=== PATIENT | male | born 1945 | race Caucasian/White ===

== ENCOUNTER 2022-09-04 09:51 | Outpatient (CLI) | payer MEDICARE, SELFPAY ==
[2022-09-04 14:22] LABS: Chloride* 101 mmol/L (96-114); Potassium* 3.9 mmol/L (3.6-5.1); Sodium* 142 mmol/L (135-149)
[2022-09-04 14:25] LABS: Blood Urea Nitrogen* 18 mg/dL (7-30); Carbon Dioxide* 34 mmol/L (20-32); Creatinine* 0.7 mg/dL (0.5-1.5); Estimated Glomerular Filt Rate 94 ml/min; Glucose* 115 mg/dL (60-115)
[2022-09-04 14:26] LABS: Calcium* 10.3 mg/dL (8.4-10.6)
== END 2022-09-04 09:52 | disposition home or self-care (01) ==
LOC: LONREF 09:53
PROVIDERS: PCP Family Medicine; Visit Provider Family Medicine
DX: I10 Essential (primary) hypertension (principal)
CPT/HCPCS: 80048

== ENCOUNTER 2023-02-04 08:28 | Outpatient (CLI) | payer MEDICARE, SELFPAY | END 2023-02-04 08:29 | disposition home or self-care (01) | LOC: AMB 02-06 10:23 | PROVIDERS: PCP Family Medicine; Visit Provider Family Medicine | DX: R50.9 Fever, unspecified (principal); R53.1 Weakness | CPT/HCPCS: A0425; A0427 ==

== ENCOUNTER 2023-02-04 08:55 | Inpatient (IN) | payer MEDICARE, SELFPAY ==
[2023-02-04] VITALS (36 sets, daily range): BP systolic 143–196; BP diastolic 89–141; PULSE 89–143; RESP 24–40; TEMP 38.4–39.8; O2SAT 90–97; BMI 40.4
[2023-02-04 10:01] LABS: PCR FLU A Negative PCR FLU A (Negative); PCR FLU B Negative PCR FLU B (Negative); PCR RSV Negative PCR RSV (Negative)
--- NOTE | 2023-02-04 10:06 | CRLHL7_ITS ---
For Patients: As a result of the Cures Act, medical imaging exams and procedure reports are released immediately into your electronic medical record. You may view this report before your referring provider. If you have questions, please contact your health care provider. INDICATION: COUGH; FEVER TECHNIQUE: Chest 2 views. COMPARISON: June 12, 2020. FINDINGS: Cardiovascular and mediastinum: Stable prominence of the cardiomediastinal silhouette. Lungs and pleural spaces: Central vascular congestion and interstitial prominence. No focal consolidation. No sign of pleural effusion. No pneumothorax. Bones and soft tissues: No significant findings. IMPRESSION: Cardiomegaly with central vascular congestion and interstitial prominence suspicious for infectious/inflammatory process or interstitial edema. Dictated by Moses De Leon MD @ 02/04/2023 11:02:48 AM (Electronically Signed)
[2023-02-04] MEDS: 0.9 % SODIUM CHLORIDE 1000 ml 1,000 ML IV ×2 (10:18→19:41)
[2023-02-04 10:22] LABS: SARS PCR* Negative SARS-CoV-2 (Negative)
[2023-02-04 11:10] LABS: Basophils Absolute Auto 0.02 K/uL (0.00-0.30); Basophils Percent Auto 0.2 % (0.0-3.0); Hematocrit 41.3 % (37.0-53.0); Immature Granulocytes Abs Auto 0.03 K/uL (0.00-0.30); Immature Granulocytes Pct Auto 0.3 %; Lactate* 1.3 mmol/L (0.5-1.9); Lymphocytes Percent Auto 9.8 % (20-44); Mean Corpuscular HGB Conc 34 gm/dL (32-36); Mean Corpuscular Hemoglobin 30 pg (26-34); Mean Corpuscular Volume 87 fL (80-100); Monocytes Percent Auto 6.1 % (0.0-11.0); Neutrophils Percent Auto 83.6 % (42.0-72.0); Platelet Count* 185 K/uL (140-440); Red Blood Count 4.73 m/uL (4.30-5.90); White Blood Count* 9.86 K/uL (4.50-11.00)
[2023-02-04 11:19] LABS: Troponin, Point-of-Care* 0.19 ng/ml (0.01-0.04)
[2023-02-04 11:19] LABS: Strep A DNA Probe* NOT DETECTED (Not Detectd)
[2023-02-04] MEDS: cefTRIAXone 1 GM in 0.9 % SODIUM CHLORIDE Mini-bag 100 ML IVPB (11:31)
[2023-02-04 11:34] LABS: Appearance Urine Clear (Clear); Bilirubin Urine 1+ (Negative); Blood Urine 3+ (Negative); Color Urine Yellow (Yellow); Glucose Urine Negative (Negative); Ketones Urine Negative (Negative); Leukocyte Esterase Urine Negative (Negative); Nitrite Urine Negative (Negative); Protein Urine 3+ (Negative); Specific Gravity Urine >= 1.030 (1.000-1.030); Urobilinogen Urine 0.2 (0.2-1.0); pH Urine 5.5 (5.0-8.5)
[2023-02-04 11:39] LABS: Chloride* 99 mmol/L (96-114); D Dimer Quantitative* 2.13 ug/ml (0.00-0.50); Potassium* 3.4 mmol/L (3.6-5.1); Slide Review Reflex No; Sodium* 136 mmol/L (135-149)
[2023-02-04 11:42] LABS: Creatinine* 0.8 mg/dL (0.5-1.5); Est. Creatinine Clearance* 54.05; Estimated Glomerular Filt Rate 90 ml/min
[2023-02-04 11:43] LABS: Blood Urea Nitrogen* 17 mg/dL (7-30); Calcium* 8.6 mg/dL (8.4-10.6); Carbon Dioxide* 31 mmol/L (20-32); Glucose* 171 mg/dL (60-115)
[2023-02-04 12:00] LABS: C Reactive Protein* 19.2 mg/dL (0.5-1.0); NT Pro B Type NatriureticPept* 1140 pg/mL
[2023-02-04 12:01] LABS: Amorphous Sediment Urine Moderate; Bacteria Urine Moderate; RBC Urine 0-2 (0-2); Squamous Epithelial Cell Urine Few (None-Few)
[2023-02-04 12:02] LABS: Mucus Urine Few
[2023-02-04 12:28] LABS: Ethanol* < 0.01 % (0.01-0.03); Troponin I* 0.15 ng/mL (0.01-0.04)
--- NOTE | 2023-02-04 12:32 | ED.NURSE ---
came out, stated that pt was having a hard time breathing. Sats 89%. O2 per NC started at 2LPM. Pt was lot in bed and color on face was reddened. Assisted pt with getting higher in the bed, HOB elveated. Noted that HR was elevated. dynamometer tester placed. EKG done. Dr Cortes updated. RT called
[2023-02-04] MEDS: IPRAT-ALBUT 0.5-2.5 MG/3 ML NEB 1 NEB IH (13:01)
[2023-02-04 13:11] LABS: ABG PCO2 40 mmHG (35-45); Base Excess ABG 4.8 mmol/L (-3.0-3.0); Carboxyhemoglobin* 1.3 % (0.0-5.0); HCO3 ABG 29 mmol/L (21-28); Oxygen Saturation ABG 94 % (92-100); PO2 ABG 60.5 mmHG (80-105); TCO2 ABG 25 mmol/l (21-30); pH ABG 7.47 (7.35-7.45)
--- NOTE | 2023-02-04 13:11 | CRLHL7_ITS ---
For Patients: As a result of the Century Cures Act, medical imaging exams and procedure reports are released immediately into your electronic medical record. You may view this report before your referring provider. If you have questions, please contact your health care provider. INDICATION: Shortness of breath, fever and elevated D-dimer. TECHNIQUE: CT chest PE was acquired with 100 cc Omnipaque 350 IV contrast. COMPARISON: Chest CT 11/25/2015 FINDINGS: Heart and vasculature: Nondiagnostic examination secondary to inadequate opacification of the pulmonary artery. No gross central pulmonary filling defects. Left-sided aortic arch which is normal in caliber with atherosclerotic calcification. Severe coronary atherosclerosis. No pericardial effusion. Lungs and pleural: Trace left pleural effusion with consolidation in the left lower lobe as well some patchy lingular consolidation. Lymph nodes/mediastinum: Subcentimeter subcarinal lymph nodes. Chest wall: No masses. Upper abdomen: Normal. Bones: Ankylosis of the thoracic spine. IMPRESSION: 1. Nondiagnostic evaluation for the detection of pulmonary embolus secondary to inadequate opacification of the pulmonary artery. No gross central pulmonary embolus seen. 2. Trace left pleural effusion with left lower lobe and lingular consolidation consistent with pneumonia. Please note that all CT scans at this facility use dose modulation, iterative reconstruction, and/or weight-based dosing when appropriate to reduce radiation dose to as low as reasonably achievable. Dictated by Franklin Nowak MD @ 02/04/2023 2:34:43 PM (Electronically Signed)
--- NOTE | 2023-02-04 13:22 | ED.NURSE ---
Dr. Cortes notified of POC trop result of 0.20.
[2023-02-04] MEDS: ERTAPENEM 1 GM in 0.9 % SODIUM CHLORIDE Mini-bag 100 ML IVPB (14:17)
--- NOTE | 2023-02-04 15:00 | ED.NURSE ---
Hospitalist MD Novoa noted concern about pt IV in R hand bleeding. Citizen Participation Specialist examined IV, flushes well. IV hub was a little loose, this was tightened and additional tegaderm applied over IV site.
[2023-02-04] MEDS: ACETAMINOPHEN 325 MG TABLET 650 MG PO ×2 (16:12→20:31)
[2023-02-04] MEDS: guaiFENesin 100 MG/ML CUP PO ×2 (16:13→20:36)
--- NOTE | 2023-02-04 16:50 | ED.SOB ---
HPI - SOB/Dyspnea General Date Seen: 02/04/23 Chief Complaint: Shortness of Breath/Dyspnea Stated Complaint: Fever and disorientation Time Seen by Provider: 02/04/23 10:05 Source: patient and RN notes reviewed Mode of arrival: ambulatory Limitations: no limitations History of Present Illness HPI Narrative: Patient is 78-year-old gentleman who presents here with shortness of breath, this been going on for the last 5 days, he has had a fever up to 103 at home, a bit of disorientation, also. Brought in by his today for further assessment. History of obstructive sleep apnea, on CPAP in the past. Remote history of COPD also. Denies any chest pain associated with this, he has had no increased leg swelling, no nausea vomiting, no diarrhea, no redness or rashes and no else sick around him, he feels more comfortable sitting up as opposed to lying down. They been trying antipyretic sent home. MD elicited complaint: shortness of breath and cough Related Data Home oxygen amount: none Home Medications Medication Instructions Recorded Confirmed CPAP Machine Not Applicable 09/04/22 aspirin 81 mg tablet,delayed 81 mg PO DAILY 09/04/22 02/04/23 release loratadine 10 mg tablet 10 mg PO DAILY 09/04/22 02/04/23 multivitamin (Multiple Vitamins 1 tab PO QAM 09/04/22 02/04/23 tablet) omega-3 fatty acids 1,000 mg 1,000 mg PO DAILY 09/04/22 02/04/23 capsule amlodipine 5 mg tablet 5 mg PO DAILY 02/04/23 02/04/23 atorvastatin 10 mg tablet 10 mg PO HS 02/04/23 02/04/23 losartan 100 mg tablet 100 mg PO DAILY 02/04/23 02/04/23 metoprolol succinate 25 mg 25 mg PO DAILY 02/04/23 02/04/23 tablet,extended release 24 hr Previous Rx's Medication Instructions Recorded fluticasone propionate 50 1 spray intranasal DAILY #16 grams 09/04/22 mcg/actuation nasal spray,suspension omeprazole 20 mg capsule,delayed 20 mg PO BID #180 caps 09/04/22 release potassium chloride 10 mEq 10 meq PO DAILY #90 caps 09/04/22 capsule,extended release triamterene 37.5 1 cap PO DAILY #90 caps 09/04/22 mg-hydrochlorothiazide 25 mg capsule Allergies Allergy/AdvReac Type Severity Reaction Status Date / Time oxycodone Allergy Mild Gastrointestinal Verified 09/03/22 08:55 Upset silver nitrate Allergy Mild Rash Verified 09/03/22 08:55 Review of Systems Status of ROS: Reports: 10 or more systems reviewed and unremarkable except as noted in History and below [facility] PFS Medical History Renal mass (05/17/13) ?N28.89 - Other specified disorders of kidney and ureter (ICD-10) Tobacco use (01/09/12) ?Z72.0 - Tobacco use (ICD-10) Surgical History History of appendectomy ?Z90.49 - Acquired absence of other specified parts of digestive tract (ICD-10) History of cholecystectomy (01/09/12) ?Z90.49 - Acquired absence of other specified parts of digestive tract (ICD-10) History of shoulder surgery (01/09/12) ?Z98.890 - Other specified postprocedural states (ICD-10) History of spinal surgery (01/09/12) ?Z98.890 - Other specified postprocedural states (ICD-10) History of tonsillectomy (01/09/12) ?Z90.89 - Acquired absence of other organs (ICD-10) History of umbilical hernia repair (01/09/12) ?Z98.890 - Other specified postprocedural states (ICD-10) ?Z87.19 - Personal history of other diseases of the digestive system (ICD-10) S/P craniotomy ?Z98.890 - Other specified postprocedural states (ICD-10) S/P eye surgery ?Z98.890 - Other specified postprocedural states (ICD-10) Status post arthroscopic knee surgery ?Z98.890 - Other specified postprocedural states (ICD-10) Status post transurethral resection of prostate (01/09/12) ?Z90.79 - Acquired absence of other genital organ(s) (ICD-10) Social History Highest level of school completed/degree received: Associate degree: occupational, technical, vocational program Smoking Status: Former smoker What tobacco products do you use: cigarettes Smoking quit date/years: >15 years ago Do you use any of these nicotine containing products: None Second hand tobacco smoke exposure: No How often do you have a drink containing alcohol: never AUDIT-C Alcohol total score: 0 Non-prescribed substance use: denies use Caffeine: No service: No Exam Narrative: Exam Narrative: Patient is seen in room 5, he appears to be in [id number] distress, with elevated respiratory rate, and a fever. GCS is 15/15, pupils equal round react to light his TMs normal oropharynx normal, there is no adenopathy anterior posterior chains, his chest shows rhonchus rales and with wheezing, bilaterally, in crackles in the left lower lobe. No signs of respiratory distress, and his heart sounds are distant faint but S1-S2 normal there is no S3-S4 clicks murmurs or gallops his abdomen is soft and obese there is no guarding, no organomegaly, was all extremities independently and well. Const: Vital Signs, click to edit/add: Vital Signs - 24 hr 02/04/23 09:14 02/04/23 09:25 02/04/23 09:30 Temperature 101.1 F H Pulse Rate 112 H 111 H Pulse Rate [Pulse Oximeter] 115 H Respiratory Rate 24 Blood Pressure Blood Pressure [Ri ght Upper Arm] 174/90 H Pulse Oximetry 91 91 91 Oxygen Delivery Me thod Room Air Fraction of Inspir ed Oxygen 02/04/23 09:32 02/04/23 10:00 02/04/23 10:01 Temperature Pulse Rate 110 H 113 H 114 H Pulse Rate [Pulse Oximeter] Respiratory Rate Blood Pressure 170/89 H 172/89 H Blood Pressure [Ri ght Upper Arm] Pulse Oximetry 94 93 91 Oxygen Delivery Me thod Fraction of Inspir ed Oxygen 02/04/23 10:37 02/04/23 11:02 02/04/23 11:03 Temperature Pulse Rate 117 H 119 H 119 H Pulse Rate [Pulse Oximeter] Respiratory Rate Blood Pressure 190/108 H Blood Pressure [Ri ght Upper Arm] Pulse Oximetry 93 95 95 Oxygen Delivery Me thod Fraction of Inspir ed Oxygen 02/04/23 11:12 02/04/23 11:30 02/04/23 11:36 Temperature 103.1 F H Pulse Rate 124 H 129 H Pulse Rate [Pulse Oximeter] Respiratory Rate 26 H Blood Pressure 196/104 H 185/97 H Blood Pressure [Ri ght Upper Arm] Pulse Oximetry 91 90 Oxygen Delivery Me thod Fraction of Inspir ed Oxygen 02/04/23 11:37 02/04/23 12:00 02/04/23 12:02 Temperature Pulse Rate 129 H 132 H 133 H Pulse Rate [Pulse Oximeter] Respiratory Rate Blood Pressure 196/116 H Blood Pressure [Ri ght Upper Arm] Pulse Oximetry 90 90 91 Oxygen Delivery Me thod Fraction of Inspir ed Oxygen 02/04/23 12:30 02/04/23 12:32 02/04/23 13:02 Temperature Pulse Rate 141 H 143 H Pulse Rate [Pulse Oximeter] Respiratory Rate Blood Pressure 194/109 H 183/96 H Blood Pressure [Ri ght Upper Arm] Pulse Oximetry 91 91 Oxygen Delivery Me thod Fraction of Inspir ed Oxygen 02/04/23 13:06 02/04/23 13:45 02/04/23 14:00 Temperature Pulse Rate 140 H 137 H 137 H Pulse Rate [Pulse Oximeter] Respiratory Rate Blood Pressure Blood Pressure [Ri ght Upper Arm] Pulse Oximetry 94 92 95 Oxygen Delivery Me thod Fraction of Inspir ed Oxygen 02/04/23 14:02 02/04/23 14:17 02/04/23 14:03 Temperature 103.2 F H Pulse Rate 134 H 133 H Pulse Rate [Pulse Oximeter] Respiratory Rate Blood Pressure 169/99 H Blood Pressure [Ri ght Upper Arm] Pulse Oximetry 94 95 Oxygen Delivery Me thod Nasal Cannula Fraction of Inspir ed Oxygen 4 02/04/23 14:30 02/04/23 14:32 02/04/23 15:00 Temperature Pulse Rate 143 H 136 H Pulse Rate [Pulse Oximeter] Respiratory Rate Blood Pressure 154/141 H Blood Pressure [Ri ght Upper Arm] Pulse Oximetry 95 95 Oxygen Delivery Me thod Fraction of Inspir ed Oxygen 02/04/23 15:02 Temperature Pulse Rate 134 H Pulse Rate [Pulse Oximeter] Respiratory Rate Blood Pressure 174/94 H Blood Pressure [Ri ght Upper Arm] Pulse Oximetry 96 Oxygen Delivery Me thod Fraction of Inspir ed Oxygen Course Reevaluation(s) Reevaluation #1: Patient has the heart shortness of breath, his initial troponin was elevated at 0.19, 2nd troponin was 0.20 given him a delta of less than 0.01, this makes me think that this is more of a chronic issue, likely significant strain associated with the heart. I did do a chest CT, did not show any large central eyes emboli, but was nondiagnostic. For small emboli. I was reassured though however the finding of a left lower lobe pneumonia, his clinically seems to be acting like this he was given her her to [place] also. I discussed with the inpatient physician, admission to our CCU, for further evaluation he did respond very well to a nebulize treatment here. Vital Signs Vital signs: Initial Vital Signs Temperature 101.1 F H 02/04/23 09:14 Temperature Source Temporal Artery Scan 02/04/23 09:14 Pulse Rate 115 H 02/04/23 09:14 Respiratory Rate 24 02/04/23 09:14 Blood Pressure 174/90 H 02/04/23 09:14 Blood Pressure Mean 118 H 02/04/23 09:14 Blood Pressure Position Semi-Fowlers 02/04/23 09:14 Pulse Oximetry 91 02/04/23 09:14 Oxygen Delivery Method Room Air 02/04/23 09:14 Vital Signs Temperature 101.1 F H 02/04/23 09:14 Pulse Rate 115 H 02/04/23 09:14 Respiratory Rate 24 02/04/23 09:14 Blood Pressure 174/90 H 02/04/23 09:14 Pulse Oximetry 91 02/04/23 09:14 Oxygen Delivery Method Room Air 02/04/23 09:14 Temperature 103.3 F H 02/04/23 16:12 Pulse Rate 123 H 02/04/23 15:36 Respiratory Rate 40 H 02/04/23 15:36 Blood Pressure 174/100 H 02/04/23 15:36 Pulse Oximetry 94 02/04/23 15:36 Oxygen Delivery Method Nasal Cannula 02/04/23 15:36 Fraction of Inspired Oxygen 4 02/04/23 15:36 MDM - SOB/Dyspnea MDM Narrative Medical decision making narrative: Life-threatening differential diagnosis includes occluded COPD exacerbation, pulmonary edema, acute coronary syndromes, pulmonary embolism, pneumonia, and pneumothorax. Other differential diagnosis considerations include asthma, bronchitis as well as other etiologies Differential Diagnosis Differential diagnosis: Likely acute exacerbation of chronic obstructive airways disease, congestive heart failure, community acquired pneumonia, asthma with exacerbation and pulmonary embolism Medical Records Attestation: I reviewed the patient's medical records. Lab Data Attestation: I reviewed the patient's lab results. Labs: Lab Results 02/04/23 02/04/23 02/04/23 Range/Units 09:15 10:25 10:58 WBC 9.86 (4.50-11.00) K/uL RBC 4.73 (4.30-5.90) m/uL Hgb 14.0 (13.5-17.5) gm/dL Hct 41.3 (37.0-53.0) % MCV 87 (80-100) fL MCH 30 (26-34) pg MCHC 34 (32-36) gm/dL RDW Coeff of Nitin 13.0 (11.5-15.5) % Plt Count 185 (140-440) K/uL Neut % (Auto) 83.6 H (42.0-72.0) % Lymph % (Auto) 9.8 L (20-44) % Hudson % (Auto) 6.1 (0.0-11.0) % Eos % (Auto) 0.0 (0.0-7.0) % Baso % (Auto) 0.2 (0.0-3.0) % Neut # (Auto) 8.20 H (1.7-7.0) K/uL Lymph # (Auto) 1.00 (0.90-2.90) K/uL Hudson # (Auto) 0.60 (0.00-0.90) K/UL Eos # (Auto) 0.00 (0.00-0.50) K/uL Baso # (Auto) 0.02 (0.00-0.30) K/uL D-Dimer Quant (PE/DVT) 2.13 H (0.00-0.50) ug/ml ABG pH (7.35-7.45) ABG pCO2 (35-45) mmHG ABG pO2 (80-105) mmHG ABG HCO3 (21-28) mmol/L ABG Total CO2 (21-30) mmol/l ABG O2 Saturation (92-100) % ABG Base Excess (-3.0-3.0) mmol/L Carboxyhemoglobin (0.0-5.0) % Sodium 136 (135-149) mmol/L Potassium 3.4 L (3.6-5.1) mmol/L Chloride 99 (96-114) mmol/L Carbon Dioxide 31 (20-32) mmol/L BUN 17 (7-30) mg/dL Creatinine 0.8 (0.5-1.5) mg/dL Estimated Creat Clear 54.05 Estimated GFR 90 ml/min Glucose 171 H (60-115) mg/dL Lactate 1.3 (0.5-1.9) mmol/L Calcium 8.6 (8.4-10.6) mg/dL Troponin I 0.15 H* (0.01-0.04) ng/mL C-Reactive Protein 19.2 H (0.5-1.0) mg/dL NT-Pro-B Natriuret Pep 1140 pg/mL Urine Color (Yellow) Urine Appearance (Clear) Urine pH (5.0-8.5) Ur Specific Te[place] (1.000-1.030) Urine Protein (Negative) Urine Glucose (UA) (Negative) Urine Ketones (Negative) Urine Blood (Negative) Urine Nitrite (Negative) Urine Bilirubin (Negative) Urine Urobilinogen (0.2-1.0) Ur Leukocyte Esterase (Negative) Urine RBC (0-2) Urine WBC (0-5) Ur Squamous Epith Cells (None-Few) Amorphous Sediment (None) Urine Bacteria (None) Urine Mucus (None) Ethyl Alcohol < 0.01 L (0.01-0.03) % SARS-CoV-2 (PCR) Negative SARS-CoV-2 (Negative) Influenza Type A (PCR) Negative PCR FLU A (Negative) Influenza Type B (PCR) Negative PCR FLU B (Negative) RSV (PCR) Negative PCR RSV (Negative) Group A Strep DNA NOT DETECTED (Not Detectd) POC Troponin I (0.01-0.04) ng/ml 02/04/23 02/04/23 02/04/23 Range/Units 10:59 11:20 12:39 WBC (4.50-11.00) K/uL RBC (4.30-5.90) m/uL Hgb (13.5-17.5) gm/dL Hct (37.0-53.0) % MCV (80-100) fL MCH (26-34) pg MCHC (32-36) gm/dL RDW Coeff of Nitin (11.5-15.5) % Plt Count (140-440) K/uL Neut % (Auto) (42.0-72.0) % Lymph % (Auto) (20-44) % Hudson % (Auto) (0.0-11.0) % Eos % (Auto) (0.0-7.0) % Baso % (Auto) (0.0-3.0) % Neut # (Auto) (1.7-7.0) K/uL Lymph # (Auto) (0.90-2.90) K/uL Hudson # (Auto) (0.00-0.90) K/UL Eos # (Auto) (0.00-0.50) K/uL Baso # (Auto) (0.00-0.30) K/uL D-Dimer Quant (PE/DVT) (0.00-0.50) ug/ml ABG pH 7.47 H (7.35-7.45) ABG pCO2 40 (35-45) mmHG ABG pO2 60.5 L (80-105) mmHG ABG HCO3 29 H (21-28) mmol/L ABG Total CO2 25 (21-30) mmol/l ABG O2 Saturation 94 (92-100) % ABG Base Excess 4.8 H (-3.0-3.0) mmol/L Carboxyhemoglobin 1.3 (0.0-5.0) % Sodium (135-149) mmol/L Potassium (3.6-5.1) mmol/L Chloride (96-114) mmol/L Carbon Dioxide (20-32) mmol/L BUN (7-30) mg/dL Creatinine (0.5-1.5) mg/dL Estimated Creat Clear Estimated GFR ml/min Glucose (60-115) mg/dL Lactate (0.5-1.9) mmol/L Calcium (8.4-10.6) mg/dL Troponin I (0.01-0.04) ng/mL C-Reactive Protein (0.5-1.0) mg/dL NT-Pro-B Natriuret Pep pg/mL Urine Color Yellow (Yellow) Urine Appearance Clear (Clear) Urine pH 5.5 (5.0-8.5) Ur Specific Te[place] >= 1.030 (1.000-1.030) Urine Protein 3+ A (Negative) Urine Glucose (UA) Negative (Negative) Urine Ketones Negative (Negative) Urine Blood 3+ A (Negative) Urine Nitrite Negative (Negative) Urine Bilirubin 1+ A (Negative) Urine Urobilinogen 0.2 (0.2-1.0) Ur Leukocyte Esterase Negative (Negative) Urine RBC 0-2 (0-2) Urine WBC 2-5 (0-5) Ur Squamous Epith Cells Few (None-Few) Amorphous Sediment Moderate A (None) Urine Bacteria Moderate A (None) Urine Mucus Few A (None) Ethyl Alcohol (0.01-0.03) % SARS-CoV-2 (PCR) (Negative) Influenza Type A (PCR) (Negative) Influenza Type B (PCR) (Negative) RSV (PCR) (Negative) Group A Strep DNA (Not Detectd) POC Troponin I 0.19 H (0.01-0.04) ng/ml 02/04/23 Range/Units 12:50 WBC (4.50-11.00) K/uL RBC (4.30-5.90) m/uL Hgb (13.5-17.5) gm/dL Hct (37.0-53.0) % MCV (80-100) fL MCH (26-34) pg MCHC (32-36) gm/dL RDW Coeff of Nitin (11.5-15.5) % Plt Count (140-440) K/uL Neut % (Auto) (42.0-72.0) % Lymph % (Auto) (20-44) % Hudson % (Auto) (0.0-11.0) % Eos % (Auto) (0.0-7.0) % Baso % (Auto) (0.0-3.0) % Neut # (Auto) (1.7-7.0) K/uL Lymph # (Auto) (0.90-2.90) K/uL Hudson # (Auto) (0.00-0.90) K/UL Eos # (Auto) (0.00-0.50) K/uL Baso # (Auto) (0.00-0.30) K/uL D-Dimer Quant (PE/DVT) (0.00-0.50) ug/ml ABG pH (7.35-7.45) ABG pCO2 (35-45) mmHG ABG pO2 (80-105) mmHG ABG HCO3 (21-28) mmol/L ABG Total CO2 (21-30) mmol/l ABG O2 Saturation (92-100) % ABG Base Excess (-3.0-3.0) mmol/L Carboxyhemoglobin (0.0-5.0) % Sodium (135-149) mmol/L Potassium (3.6-5.1) mmol/L Chloride (96-114) mmol/L Carbon Dioxide (20-32) mmol/L BUN (7-30) mg/dL Creatinine (0.5-1.5) mg/dL Estimated Creat Clear Estimated GFR ml/min Glucose (60-115) mg/dL Lactate (0.5-1.9) mmol/L Calcium (8.4-10.6) mg/dL Troponin I (0.01-0.04) ng/mL C-Reactive Protein (0.5-1.0) mg/dL NT-Pro-B Natriuret Pep pg/mL Urine Color (Yellow) Urine Appearance (Clear) Urine pH (5.0-8.5) Ur Specific [place] (1.000-1.030) Urine Protein (Negative) Urine Glucose (UA) (Negative) Urine Ketones (Negative) Urine Blood (Negative) Urine Nitrite (Negative) Urine Bilirubin (Negative) Urine Urobilinogen (0.2-1.0) Ur Leukocyte Esterase (Negative) Urine RBC (0-2) Urine WBC (0-5) Ur Squamous Epith Cells (None-Few) Amorphous Sediment (None) Urine Bacteria (None) Urine Mucus (None) Ethyl Alcohol (0.01-0.03) % SARS-CoV-2 (PCR) (Negative) Influenza Type A (PCR) (Negative) Influenza Type B (PCR) (Negative) RSV (PCR) (Negative) Group A Strep DNA (Not Detectd) POC Troponin I 0.20 H (0.01-0.04) ng/ml ABG Data ABG results: Hypoxia, with slightly elevated COPD normal pH Attestation: I personally reviewed and interpreted this ABG as follows: Imaging Data CT scan - chest: Attestation: I have reviewed the pertinent imaging results. Radiologist's impression: Patient: NICKI BANGURA Facility:[facility] Patient ID:?[id number] Site Patient ID:?[id number]. Site :?[id number] Study:?CT Chest Angio 95CC ISOVUE 370-02/04/2023 1:51:43 PM Ordering Physician:Isai Rubio Final Report: INDICATION: Shortness of breath, fever and elevated D-dimer. TECHNIQUE: CT chest PE was acquired with 100 cc Omnipaque 350 IV contrast. COMPARISON: Chest CT 11/25/2015 FINDINGS: Heart and vasculature: Nondiagnostic examination secondary to inadequate opacification of the pulmonary artery. No gross central pulmonary filling defects. Left-sided aortic arch which is normal in caliber with atherosclerotic calcification. Severe coronary atherosclerosis. No pericardial effusion. Lungs and pleural: Trace left pleural effusion with consolidation in the left lower lobe as well some patchy lingular consolidation. Lymph nodes/mediastinum: Subcentimeter subcarinal lymph nodes. Chest wall: No masses. Upper abdomen: Normal. Bones: Ankylosis of the thoracic spine. IMPRESSION: 1. Nondiagnostic evaluation for the detection of pulmonary embolus secondary to inadequate opacification of the pulmonary artery. No gross central pulmonary embolus seen. 2. Trace left pleural effusion with left lower lobe and lingular consolidation consistent with pneumonia. Please note that all CT scans at this facility use dose modulation, iterative reconstruction, and/or weight-based dosing when appropriate to reduce radiation dose to as low as reasonably achievable. Dictated by Franklin Nowak MD @ 02/04/2023 2:34:43 PM (Electronic Signature) ECG Data Attestation: I personally reviewed and interpreted this ECG as follows: ECG interpretation date: 02/04/23 Interpretation: No acute ST wave changes, tachycardia Critical Care Time Critical Care Time Critical Care Time: Yes Attestation: The patient required my highest level preparedness to intervene emergently and I personally spent this critical care time directly and personally managing the patient. This critical care time included: Obtaining a history; Examining the patient; Pulse oximetry; Ordering and reviewing of studies; Arranging urgent treatment with development of a management plan; Evaluation of patients response to treatment; Frequent reassessment discussions with other providers. This critical care time was performed to assess and manage the high probability of imminent life-threatening deterioration that could result in multiorgan failure. It was exclusive of separate billable procedures and treating other patients and teaching time. Total Critical Care Time in Minutes: 45 Discharge Plan Discharge Clinical Impression: Chronic obstructive pulmonary disease with (acute) exacerbation, Shortness of breath, Bacterial lobar pneumonia, Hypoxia Patient Disposition: Admitted As Inpatient
[2023-02-04 18:57] LABS: HCO3 VBG 31 mmol/L (21-28); Lactate* 1.5 mmol/L (0.5-1.9); PCO2 VBG 46 mmHG (40-50); PO2 VBG 39.9 mmHG (25-47); pH VBG 7.428 (7.32-7.43)
[2023-02-04 19:36] LABS: Troponin I* 0.16 ng/mL (0.01-0.04)
[2023-02-04] MEDS: AZITHROMYCIN 500 MG in 0.9 % SODIUM CHLORIDE 250 ml 250 ML 255 MG IVPB (19:59)
[2023-02-04] MEDS: POTASSIUM CHLORIDE 10 MEQ CAPSULE ER 40 MEQ PO (20:31)
[2023-02-04] MEDS: OMEPRAZOLE 20 MG CAPSULE DR PO (21:41)
[2023-02-04] MEDS: ENOXAPARIN 40 MG/0.4 ML INJ SUBCUT (21:41)
[2023-02-04] MEDS: PIPERACILLIN/TAZOBACTAM 3.375 GM in 0.9 % SODIUM CHLORIDE Mini-bag 100 ML IVPB (21:41)
[2023-02-04] MEDS: 0.9 % SODIUM CHLORIDE 250 ml IV (21:43)
--- NOTE | 2023-02-04 21:45 | P.IMHP_ITS ---
Hospitalist- H&P: HPI History of Present Illness Time Seen by Provider: 15:00 Date Seen: 02/04/23 Chief complaint: Fever and disorientation Narrative: Neville Stern is a 78 year old man who presents for further assessment of 5 days of cough, shortness of breath, fever up to 103? F, couple episodes of rigors and diaphoresis, myalgias, decreased sleep, intermittent confusion, weakness, decreased appetite. Has tried acetaminophen at home without relief of fever. Yesterday had a couple of falls related to the weakness. Once he fell backward when trying to get up from sitting. Another time he he fell forward onto his knees and skin is knees, again when trying to get up from sitting. Had a near syncopal episode yesterday, orthostatic, when attempting to take a shower. His is been trying to talk him into coming into the hospital for assessment but he has declined until today. Ordinarily does not utilize oxygen supplementation. When he arrived emergency department he was requiring oxygen supplementation. Does use his CPAP machine regularly at bedtime. Review of Systems Status of ROS: Reports: 10 or more systems reviewed and unremarkable except as noted in History and below Narrative: Up until 5 days ago he was in his usual state of health. Uses his CPAP machine to treat his obstructive sleep apnea routinely. He finds that this helps him a great deal. Some chest discomfort when coughing otherwise denies chest pain, pressure, tightness. Cough for the most part is dry nonproductive. He states that sounds loose but has not produce much sputum. Denies hemoptysis. Cough is kept him up day and night, thus he has had very little sleep over the last few days. Denies nausea or vomiting. Denies palpitations. Denies wheezing. As far as he know he has had not had any contact with others with COVID-19, influenza, or any other illness. Denies aspiration or regurgitation. Denies constipation or diarrhea. No recent travel, trauma, injury. No blood loss. No focal motor neurologic deficits. 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 PFSH PFS Medical History Adenomatous colon polyp ?D12.6 - Benign neoplasm of colon, unspecified (ICD-10) Chronic obstructive pulmonary disease with (acute) exacerbation ?J44.1 - Chronic obstructive pulmonary disease with (acute) exacerbation (ICD-10) Diverticulosis of intestine ?K57.90 - Diverticulosis of intestine, part unspecified, without perforation or abscess without bleeding (ICD-10) Erectile dysfunction ?N52.9 - Male erectile dysfunction, unspecified (ICD-10) Gastroesophageal reflux (01/09/12) ?K21.9 - Gastro-esophageal reflux disease without esophagitis (ICD-10) Gilbert's syndrome (07/21/12) ?E80.4 - Gilbert syndrome (ICD-10) Hyperlipidemia (01/09/12) ?E78.5 - Hyperlipidemia, unspecified (ICD-10) Hypertension (01/09/12) ?I10 - Essential (primary) hypertension (ICD-10) Kidney calculus (01/09/12) ?N20.0 - Calculus of kidney (ICD-10) Meningioma ?D32.9 - Benign neoplasm of meninges, unspecified (ICD-10) Migraine (01/09/12) ?G43.909 - Migraine, unspecified, not intractable, without status migrainosus (ICD-10) PANCHO on CPAP ?G47.33 - Obstructive sleep apnea (adult) (pediatric) (ICD-10) ?Z99.89 - Dependence on other enabling machines and devices (ICD-10) Prediabetes ?R73.03 - Prediabetes (ICD-10) Renal mass (05/17/13) ?N28.89 - Other specified disorders of kidney and ureter (ICD-10) Tobacco use (01/09/12) ?Z72.0 - Tobacco use (ICD-10) Surgical History History of appendectomy ?Z90.49 - Acquired absence of other specified parts of digestive tract (ICD- 10) History of cholecystectomy (01/09/12) ?Z90.49 - Acquired absence of other specified parts of digestive tract (ICD- 10) History of shoulder surgery (01/09/12) ?Z98.890 - Other specified postprocedural states (ICD-10) History of spinal surgery (01/09/12) ?Z98.890 - Other specified postprocedural states (ICD-10) History of tonsillectomy (01/09/12) ?Z90.89 - Acquired absence of other organs (ICD-10) History of umbilical hernia repair (01/09/12) ?Z98.890 - Other specified postprocedural states (ICD-10) ?Z87.19 - Personal history of other diseases of the digestive system (ICD-10) S/P craniotomy ?Z98.890 - Other specified postprocedural states (ICD-10) S/P eye surgery ?Z98.890 - Other specified postprocedural states (ICD-10) Status post arthroscopic knee surgery ?Z98.890 - Other specified postprocedural states (ICD-10) Status post transurethral resection of prostate (01/09/12) ?Z90.79 - Acquired absence of other genital organ(s) (ICD-10) Social History Highest level of school completed/degree received: Associate degree: occupational, technical, vocational program Smoking Status: Former smoker What tobacco products do you use: cigarettes Smoking quit date/years: >15 years ago Do you use any of these nicotine containing products: None Second hand tobacco smoke exposure: No How often do you have a drink containing alcohol: never AUDIT-C Alcohol total score: 0 Non-prescribed substance use: denies use Caffeine: No service: No Meds Home Medications and Allergies Home Medications Medication Instructions Recorded Confirmed Type CPAP Machine Not Applicable 09/04/22 History aspirin 81 mg tablet,delayed 81 mg PO DAILY 09/04/22 02/04/23 History release loratadine 10 mg tablet 10 mg PO DAILY 09/04/22 02/04/23 History multivitamin (Multiple Vitamins 1 tab PO QAM 09/04/22 02/04/23 History tablet) omega-3 fatty acids 1,000 mg 1,000 mg PO DAILY 09/04/22 02/04/23 History capsule amlodipine 5 mg tablet 5 mg PO DAILY 02/04/23 02/04/23 History atorvastatin 10 mg tablet 10 mg PO HS 02/04/23 02/04/23 History losartan 100 mg tablet 100 mg PO DAILY 02/04/23 02/04/23 History metoprolol succinate 25 mg 25 mg PO DAILY 02/04/23 02/04/23 History tablet,extended release 24 hr Allergies Allergy/AdvReac Type Severity Reaction Status Date / Time oxycodone Allergy Mild Gastrointestinal Verified 09/03/22 08:55 Upset silver nitrate Allergy Mild Rash Verified 09/03/22 08:55 Exam Narrative: Exam Narrative: Appears ill and even toxic. Nevertheless in no acute distress. Alert and oriented to self, place, time, situation. Appears worried and concerned. Mood and affect are congruent. Vision in his right eye is grossly normal. Hearing is grossly normal bilaterally. Tympanic membranes are normal. Midline nasal septum. Dry buccal mucosa. Neck is supple. Full neck. Midline trachea. No adenopathy. Scattered rhonchi in right and left lung cee. Coarse rales left base. No rales elsewhere. No wheezing. Chest wall excursions are full. No CVA tenderness. Heart tones with regular rhythm, normal S1-S2. Abdomen is obese with active bowel sounds, soft, nontender. Extremities without edema. Palpable pulses upper and lower extremities. Capillary refill less than 3 seconds in upper and lower extremities. No focal motor neurologic deficits. Has been intentional tremor which he tells me does not ordinarily have. Otherwise no asterixis or ataxia. Skin is warm, dry, intact. No petechiae, rashes, cyanosis, or open wounds. Const: Vital Signs, click to edit/add: Vital Signs - 24 hr 02/04/23 09:14 02/04/23 09:25 02/04/23 09:30 Temperature 101.1 F H Pulse Rate 112 H 111 H Pulse Rate [Pulse Oximeter] 115 H Respiratory Rate 24 Blood Pressure Blood Pressure [Ri ght Arm] Blood Pressure [Ri ght Upper Arm] 174/90 H Pulse Oximetry 91 91 91 Oxygen Delivery Me thod Room Air Oxygen Flow Rate Fraction of Inspir ed Oxygen 02/04/23 09:32 02/04/23 10:00 02/04/23 10:01 Temperature Pulse Rate 110 H 113 H 114 H Pulse Rate [Pulse Oximeter] Respiratory Rate Blood Pressure 170/89 H 172/89 H Blood Pressure [Ri ght Arm] Blood Pressure [Ri ght Upper Arm] Pulse Oximetry 94 93 91 Oxygen Delivery Me thod Oxygen Flow Rate Fraction of Inspir ed Oxygen 02/04/23 10:37 02/04/23 11:02 02/04/23 11:03 Temperature Pulse Rate 117 H 119 H 119 H Pulse Rate [Pulse Oximeter] Respiratory Rate Blood Pressure 190/108 H Blood Pressure [Ri ght Arm] Blood Pressure [Ri ght Upper Arm] Pulse Oximetry 93 95 95 Oxygen Delivery Me thod Oxygen Flow Rate Fraction of Inspir ed Oxygen 02/04/23 11:12 02/04/23 11:30 02/04/23 11:36 Temperature 103.1 F H Pulse Rate 124 H 129 H Pulse Rate [Pulse Oximeter] Respiratory Rate 26 H Blood Pressure 196/104 H 185/97 H Blood Pressure [Ri ght Arm] Blood Pressure [Ri ght Upper Arm] Pulse Oximetry 91 90 Oxygen Delivery Me thod Oxygen Flow Rate Fraction of Inspir ed Oxygen 02/04/23 11:37 02/04/23 12:00 02/04/23 12:02 Temperature Pulse Rate 129 H 132 H 133 H Pulse Rate [Pulse Oximeter] Respiratory Rate Blood Pressure 196/116 H Blood Pressure [Ri ght Arm] Blood Pressure [Ri ght Upper Arm] Pulse Oximetry 90 90 91 Oxygen Delivery Me thod Oxygen Flow Rate Fraction of Inspir ed Oxygen 02/04/23 12:30 02/04/23 12:32 02/04/23 13:02 Temperature Pulse Rate 141 H 143 H Pulse Rate [Pulse Oximeter] Respiratory Rate Blood Pressure 194/109 H 183/96 H Blood Pressure [Ri ght Arm] Blood Pressure [Ri ght Upper Arm] Pulse Oximetry 91 91 Oxygen Delivery Me thod Oxygen Flow Rate Fraction of Inspir ed Oxygen 02/04/23 13:06 02/04/23 13:45 02/04/23 14:00 Temperature Pulse Rate 140 H 137 H 137 H Pulse Rate [Pulse Oximeter] Respiratory Rate Blood Pressure Blood Pressure [Ri ght Arm] Blood Pressure [Ri ght Upper Arm] Pulse Oximetry 94 92 95 Oxygen Delivery Me thod Oxygen Flow Rate Fraction of Inspir ed Oxygen 02/04/23 14:02 02/04/23 14:17 02/04/23 14:03 Temperature 103.2 F H Pulse Rate 134 H 133 H Pulse Rate [Pulse Oximeter] Respiratory Rate Blood Pressure 169/99 H Blood Pressure [Ri ght Arm] Blood Pressure [Ri ght Upper Arm] Pulse Oximetry 94 95 Oxygen Delivery Me thod Nasal Cannula Oxygen Flow Rate Fraction of Inspir ed Oxygen 4 02/04/23 14:30 02/04/23 14:32 02/04/23 15:00 Temperature Pulse Rate 143 H 136 H Pulse Rate [Pulse Oximeter] Respiratory Rate Blood Pressure 154/141 H Blood Pressure [Ri ght Arm] Blood Pressure [Ri ght Upper Arm] Pulse Oximetry 95 95 Oxygen Delivery Me thod Oxygen Flow Rate Fraction of Inspir ed Oxygen 02/04/23 15:02 02/04/23 15:36 02/04/23 16:12 Temperature 103.3 F H 103.3 F H Pulse Rate 134 H Pulse Rate [Pulse Oximeter] 123 H Respiratory Rate 40 H Blood Pressure 174/94 H Blood Pressure [Ri ght Arm] 174/100 H Blood Pressure [Ri ght Upper Arm] Pulse Oximetry 96 94 Oxygen Delivery Me thod Nasal Cannula Oxygen Flow Rate Fraction of Inspir ed Oxygen 4 02/04/23 15:36 02/04/23 18:00 02/04/23 18:12 Temperature 101.3 F H Pulse Rate 129 H Pulse Rate [Pulse Oximeter] 111 H Respiratory Rate 40 H 36 H Blood Pressure Blood Pressure [Ri ght Arm] 143/96 H Blood Pressure [Ri ght Upper Arm] Pulse Oximetry 94 94 Oxygen Delivery Me thod Nasal Cannula Nasal Cannula Oxygen Flow Rate 4 4 Fraction of Inspir ed Oxygen 4 02/04/23 18:24 02/04/23 19:00 02/04/23 20:00 Temperature 103.6 F H Pulse Rate 118 H Pulse Rate [Pulse Oximeter] 127 H Respiratory Rate 36 H Blood Pressure Blood Pressure [Ri ght Arm] 186/114 H Blood Pressure [Ri ght Upper Arm] Pulse Oximetry 94 94 Oxygen Delivery Me thod Nasal Cannula Oxygen Flow Rate 4 Fraction of Inspir ed Oxygen Documenting provider has reviewed patient's vital signs: yes Hospitalist - H&P: Result Labs Labs: Short CBC 02/04/23 Range/Units 10:58 WBC 9.86 (4.50-11.00) K/uL Hgb 14.0 (13.5-17.5) gm/dL Hct 41.3 (37.0-53.0) % Plt Count 185 (140-440) K/uL BMP 02/04/23 10:58 Sodium 136 Potassium 3.4 L Chloride 99 Carbon Dioxide 31 BUN 17 Creatinine 0.8 Glucose 171 H Calcium 8.6 Cardiac Enzymes 02/04/23 02/04/23 Range/Units 10:58 18:54 Troponin I 0.15 H* 0.16 H* (0.01-0.04) ng/mL Urine 02/04/23 Range/Units 11:20 Urine Color Yellow (Yellow) Urine Appearance Clear (Clear) Urine pH 5.5 (5.0-8.5) Ur Specific [place] >= 1.030 (1.000-1.030) Urine Protein 3+ A (Negative) Urine Glucose (UA) Negative (Negative) ECG Attestation: I personally reviewed and interpreted this ECG as follows: ECG interpretation date: 02/04/23 Prior ECG tracings: not available for review Interpretation: Sinus tachycardia without ischemic changes. Imaging CT scan - chest: Attestation: I have reviewed the pertinent imaging results. Radiologist's impression: 1. Nondiagnostic evaluation for the detection of pulmonary embolus secondary to inadequate opacification of the pulmonary artery. No gross central pulmonary embolus seen. 2. Trace left pleural effusion with left lower lobe and lingular consolidation consistent with pneumonia. Assessment and Plan Assessment and plan (1) Bacterial lobar pneumonia: Problem comment: Dense left lingular consolidation Status: Acute (2) Acute on chronic respiratory failure with hypoxemia: Status: Acute (3) Chronic obstructive pulmonary disease: Status: Acute (4) PANCHO on CPAP: Status: Acute (5) Elevated troponin I level: Problem comment: I suspect he has a type 2 myocardial infarction. Status: Acute Plan 1. Reviewed impression with patient and . Recommended admission to the hospital. They are both agreeable. 2. Patient had blood cultures drawn when he arrived in the emergency department. He was given 1 g of ceftriaxone in the emergency department. Later he was given 1 g of IV ertapenem. I ordered piperacillin with tazobactam 3.375 g IV q.6 hours plus azithromycin 500 mg orally once than 250 mg orally once daily for 4 additional days. 3. Oxygen support. I suspect that his oxygen needs are going to get worse as we hydrate him. If that is the case will attempt to switch him to high-flow oxygen with humidification. Consider BiPAP if need be. 4. Aerobika use. Bedside incentive spirometry use. 5. Presently not wheezing. No indication to initiate bronchodilators at this time. 6. Should his oxygen needs worsen, will also initiate IV hydrocortisone. We currently do not have the 200 mg IV continuous infusion protocol in place. For now I will order 100 mg IV q.8 until we can have our pharmacy reviewed this and possibly mix a solution so that we can give the continuous infusion for 4-7 days rather than the intermittent administration. He will need a tapering course of oral prednisone subsequently. 7. Telemetry, serial ECG, serial troponin I. Will also check echocardiogram. 8. Consider increasing his dose of beta-erlinda. 9. His fevers are persistent will need to schedule an antipyretic such as acetaminophen and consider ibuprofen p.r.n. as well. 10. Monitor his hydration closely. I did give him some IV fluids initially. 11. Given the density of the infiltrate in his left lingula, this is an individual who will certainly warrant repeat x-ray in 4-8 weeks after resolution of the acute pneumonia in order to assess for possible underlying mass or neoplasm. 12. Continue with his supportive medications. 13. Should his condition deteriorate, will need to consider possible transfer to a tertiary medical facility. 14. Patient agreeable to above stated plans and recommendations.
[2023-02-04] MEDS: IBUPROFEN 400 MG TABLET PO (22:00)
--- NOTE | 2023-02-04 22:54 | PC.NURSE ---
Shift Note [id number]: BP's have been hypertensive and pt tachycardic, HR 120-130 and seen as high as 150 with exertion to [facility]. He denies CP or pressure, troponin has been elevated. He exhibits a persistent and forceful nonproductive cough and a fever of 103 or greater since admission to the floor despite Tylenol. Pt encouraged to cough and deep breathe while on 4-5L/O2 via NC and he has been coughing nearly constantly. Guaifenesin given PRN with little relief. Ibuprofen added to eMar per MD for fever control and pt padded with several icepacks. At HS he had increasing difficulty maintaining SpO2 greater than 86% with his CPAP and 5L/O2 bled in and coughing spells continued. He was transitioned to HFNC at 20LPM/50%FiO2 per MD. He is resting upright in the recliner and appears much more comfortable. He has been thirsty and is tolerating PO liquids well, urine production has been adequate but appears quite dark and concentrated.
[2023-02-05] VITALS (15 sets, daily range): BP systolic 113–157; BP diastolic 67–92; PULSE 93–111; RESP 24–32; TEMP 36.4–37.3; O2SAT 92–101
[2023-02-05] MEDS: ACETAMINOPHEN 325 MG TABLET 650 MG PO ×6 (00:13→21:04)
[2023-02-05] MEDS: HYDROCORTISONE SOD SUCCINATE 50 MG/ML inj 100 MG IVP ×2 (00:13→06:10)
[2023-02-05] MEDS: 0.9 % SODIUM CHLORIDE 1000 ml 1,000 ML 125 ML IV ×2 (01:00→08:43)
[2023-02-05] MEDS: PIPERACILLIN/TAZOBACTAM 3.375 GM in 0.9 % SODIUM CHLORIDE Mini-bag 100 ML IVPB ×4 (03:15→21:05)
[2023-02-05] MEDS: guaiFENesin 100 MG/ML CUP PO ×3 (03:22→21:03)
[2023-02-05] MEDS: SODIUM CHLORIDE 0.9 % (FLUSH) 10 ML SYRINGE 5 ML IVF ×3 (06:10→19:35)
--- NOTE | 2023-02-05 06:57 | PC.NURSE ---
[id number]: Patient pleasant and cooperative with cares. Slept in the chair during noc. Started shift on HFNC then transitioned to 2 LT NC at 0200. Removed O2 at 0500 and sats >90% RA. Excessively diaphoretic at 0000, washed up and changed gown and linens. HR under 100 throughout shift. Afebrile. A1/walker/GB, tolerates well. Denies pain. Denies chest pressure/pain. Intermittent productive cough.
--- NOTE | 2023-02-05 07:20 | PM.IMPN1 ---
Progress Note: A&P Assessment and plan (1) Bacterial lobar pneumonia: Problem details: - Dense left lingular consolidation on 02/04 imaging - Patient also had fever on admission; interestingly, WBC has remained normal - on Zosyn and Azithromycin (02/04) Status: Acute (2) Acute on chronic respiratory failure with hypoxemia: Problem details: - improved significantly from admission, has tapered off of supplemental oxygen on 02/05 Status: Acute (3) Chronic obstructive pulmonary disease: Problem details: - on oral Prednisone (02/05) Status: Acute (4) PANCHO on CPAP: Problem details: - continue CPAP at night Status: Acute (5) Elevated troponin I level: Problem details: - no CP; type 2 myocardial infarction vs strain from acute illness - TTE ordered for 02/05 Status: Acute (6) Diabetes type 2, controlled: Problem details: - new diagnosis 01/2023, A1C 7 - nutrition consult ordered Status: Acute Plan - per above - Lovenox for ppx - likely home with when medically stable (1-2 more days) Subjective Date Seen: 02/05/23 Interval history: Patient was able to wean off of supplemental oxygen overnight. Neville is feeling 100% better but still having coughing paroxysms and low energy. No concerns for hospitalist team today. Exam Narrative: Exam Narrative: GEN: Alert and oriented, sitting comfortably in bedside chair HEENT: No scleral icterus CV: RRR, No concerning murmurs R: Expiratory wheezing bilateral apices, rales L lung base, decreased air movement Skin: No concerning skin lesions or rashes on exposed skin Neuro: Nonfocal Psych: Appropriate Const: Vital Signs, click to edit/add: Vital Signs - 24 hr 02/04/23 09:14 02/04/23 09:25 02/04/23 09:30 Temperature 101.1 F H Pulse Rate 112 H 111 H Pulse Rate [Pulse Oximeter] 115 H Respiratory Rate 24 Blood Pressure Blood Pressure [Ri ght Arm] Blood Pressure [Ri ght Upper Arm] 174/90 H Pulse Oximetry 91 91 91 Oxygen Delivery Me thod Room Air Oxygen Flow Rate Fraction of Inspir ed Oxygen 02/04/23 09:32 02/04/23 10:00 02/04/23 10:01 Temperature Pulse Rate 110 H 113 H 114 H Pulse Rate [Pulse Oximeter] Respiratory Rate Blood Pressure 170/89 H 172/89 H Blood Pressure [Ri ght Arm] Blood Pressure [Ri ght Upper Arm] Pulse Oximetry 94 93 91 Oxygen Delivery Me thod Oxygen Flow Rate Fraction of Inspir ed Oxygen 02/04/23 10:37 02/04/23 11:02 02/04/23 11:03 Temperature Pulse Rate 117 H 119 H 119 H Pulse Rate [Pulse Oximeter] Respiratory Rate Blood Pressure 190/108 H Blood Pressure [Ri ght Arm] Blood Pressure [Ri ght Upper Arm] Pulse Oximetry 93 95 95 Oxygen Delivery Me thod Oxygen Flow Rate Fraction of Inspir ed Oxygen 02/04/23 11:12 02/04/23 11:30 02/04/23 11:36 Temperature 103.1 F H Pulse Rate 124 H 129 H Pulse Rate [Pulse Oximeter] Respiratory Rate 26 H Blood Pressure 196/104 H 185/97 H Blood Pressure [Ri ght Arm] Blood Pressure [Ri ght Upper Arm] Pulse Oximetry 91 90 Oxygen Delivery Me thod Oxygen Flow Rate Fraction of Inspir ed Oxygen 02/04/23 11:37 02/04/23 12:00 02/04/23 12:02 Temperature Pulse Rate 129 H 132 H 133 H Pulse Rate [Pulse Oximeter] Respiratory Rate Blood Pressure 196/116 H Blood Pressure [Ri ght Arm] Blood Pressure [Ri ght Upper Arm] Pulse Oximetry 90 90 91 Oxygen Delivery Me thod Oxygen Flow Rate Fraction of Inspir ed Oxygen 02/04/23 12:30 02/04/23 12:32 02/04/23 13:02 Temperature Pulse Rate 141 H 143 H Pulse Rate [Pulse Oximeter] Respiratory Rate Blood Pressure 194/109 H 183/96 H Blood Pressure [Ri ght Arm] Blood Pressure [Ri ght Upper Arm] Pulse Oximetry 91 91 Oxygen Delivery Me thod Oxygen Flow Rate Fraction of Inspir ed Oxygen 02/04/23 13:06 02/04/23 13:45 02/04/23 14:00 Temperature Pulse Rate 140 H 137 H 137 H Pulse Rate [Pulse Oximeter] Respiratory Rate Blood Pressure Blood Pressure [Ri ght Arm] Blood Pressure [Ri ght Upper Arm] Pulse Oximetry 94 92 95 Oxygen Delivery Me thod Oxygen Flow Rate Fraction of Inspir ed Oxygen 02/04/23 14:02 02/04/23 14:17 02/04/23 14:03 Temperature 103.2 F H Pulse Rate 134 H 133 H Pulse Rate [Pulse Oximeter] Respiratory Rate Blood Pressure 169/99 H Blood Pressure [Ri ght Arm] Blood Pressure [Ri ght Upper Arm] Pulse Oximetry 94 95 Oxygen Delivery Me thod Nasal Cannula Oxygen Flow Rate Fraction of Inspir ed Oxygen 4 02/04/23 14:30 02/04/23 14:32 02/04/23 15:00 Temperature Pulse Rate 143 H 136 H Pulse Rate [Pulse Oximeter] Respiratory Rate Blood Pressure 154/141 H Blood Pressure [Ri ght Arm] Blood Pressure [Ri ght Upper Arm] Pulse Oximetry 95 95 Oxygen Delivery Me thod Oxygen Flow Rate Fraction of Inspir ed Oxygen 02/04/23 15:02 02/04/23 15:36 02/04/23 16:12 Temperature 103.3 F H 103.3 F H Pulse Rate 134 H Pulse Rate [Pulse Oximeter] 123 H Respiratory Rate 40 H Blood Pressure 174/94 H Blood Pressure [Ri ght Arm] 174/100 H Blood Pressure [Ri ght Upper Arm] Pulse Oximetry 96 94 Oxygen Delivery Me thod Nasal Cannula Oxygen Flow Rate Fraction of Inspir ed Oxygen 4 02/04/23 15:36 02/04/23 18:00 02/04/23 18:12 Temperature 101.3 F H Pulse Rate 129 H Pulse Rate [Pulse Oximeter] 111 H Respiratory Rate 40 H 36 H Blood Pressure Blood Pressure [Ri ght Arm] 143/96 H Blood Pressure [Ri ght Upper Arm] Pulse Oximetry 94 94 Oxygen Delivery Me thod Nasal Cannula Nasal Cannula Oxygen Flow Rate 4 4 Fraction of Inspir ed Oxygen 4 02/04/23 18:24 02/04/23 19:00 02/04/23 20:00 Temperature 103.6 F H Pulse Rate 118 H Pulse Rate [Pulse Oximeter] 127 H Respiratory Rate 36 H Blood Pressure Blood Pressure [Ri ght Arm] 186/114 H Blood Pressure [Ri ght Upper Arm] Pulse Oximetry 94 94 Oxygen Delivery Me thod Nasal Cannula Oxygen Flow Rate 4 Fraction of Inspir ed Oxygen 02/04/23 22:18 02/05/23 00:09 02/05/23 00:11 Temperature 99.1 F Pulse Rate Pulse Rate [Pulse Oximeter] 102 H Respiratory Rate 32 H Blood Pressure Blood Pressure [Ri ght Arm] 113/91 H Blood Pressure [Ri ght Upper Arm] Pulse Oximetry 93 Oxygen Delivery Me thod High Flow Nasal Ca nnula Oxygen Flow Rate 20 Fraction of Inspir ed Oxygen 50 50 02/05/23 00:12 02/04/23 23:00 02/05/23 00:00 Temperature 99.1 F Pulse Rate Pulse Rate [Pulse Oximeter] 102 H Respiratory Rate 32 H 32 H Blood Pressure Blood Pressure [Ri ght Arm] Blood Pressure [Ri ght Upper Arm] Pulse Oximetry 93 Oxygen Delivery Me thod High Flow Nasal Ca nnula Oxygen Flow Rate 20 Fraction of Inspir ed Oxygen 02/04/23 23:00 02/05/23 01:38 02/05/23 02:00 Temperature 98.3 F 98.3 F Pulse Rate 89 Pulse Rate [Pulse Oximeter] 93 Respiratory Rate 30 H Blood Pressure Blood Pressure [Ri ght Arm] 129/67 Blood Pressure [Ri ght Upper Arm] Pulse Oximetry 97 Oxygen Delivery Me thod High Flow Nasal Ca [place]ula Oxygen Flow Rate 20 Fraction of Inspir ed Oxygen 02/04/23 23:00 02/05/23 03:47 02/05/23 04:00 Temperature 98.3 F Pulse Rate 95 Pulse Rate [Pulse Oximeter] 95 Respiratory Rate 24 Blood Pressure Blood Pressure [Ri ght Arm] Blood Pressure [Ri ght Upper Arm] Pulse Oximetry 97 95 Oxygen Delivery Me thod Nasal Cannula Oxygen Flow Rate 2.0 Fraction of Inspir ed Oxygen 02/05/23 04:09 02/05/23 06:36 Temperature 98.0 F Pulse Rate Pulse Rate [Pulse Oximeter] 94 98 Respiratory Rate 24 24 Blood Pressure Blood Pressure [Ri ght Arm] 150/92 H Blood Pressure [Ri ght Upper Arm] Pulse Oximetry 95 Oxygen Delivery Me thod Room Air Oxygen Flow Rate Fraction of Inspir ed Oxygen Labs Labs: Laboratory Results - last 24 hr 02/04/23 02/04/23 02/04/23 09:15 10:25 10:58 WBC 9.86 RBC 4.73 Hgb 14.0 Hct 41.3 MCV 87 MCH 30 MCHC 34 RDW Coeff of Nitin 13.0 Plt Count 185 Neut % (Auto) 83.6 H Lymph % (Auto) 9.8 L [place] % (Auto) 6.1 Eos % (Auto) 0.0 Baso % (Auto) 0.2 Neut # (Auto) 8.20 H Lymph # (Auto) 1.00 [place] # (Auto) 0.60 Eos # (Auto) 0.00 Baso # (Auto) 0.02 D-Dimer Quant (PE/DVT) 2.13 H ABG pH ABG pCO2 ABG pO2 ABG HCO3 ABG Total CO2 ABG O2 Saturation ABG Base Excess VBG pH VBG pCO2 VBG pO2 VBG HCO3 Carboxyhemoglobin Sodium 136 Potassium 3.4 L Chloride 99 Carbon Dioxide 31 BUN 17 Creatinine 0.8 Estimated Creat Clear 54.05 Estimated GFR 90 Glucose 171 H Lactate 1.3 Calcium 8.6 Troponin I 0.15 H* C-Reactive Protein 19.2 H NT-Pro-B Natriuret Pep 1140 Urine Color Urine Appearance Urine pH Ur Specific [place] Urine Protein Urine Glucose (UA) Urine Ketones Urine Blood Urine Nitrite Urine Bilirubin Urine Urobilinogen Ur Leukocyte Esterase Urine RBC Urine WBC Ur Squamous Epith Cells Amorphous Sediment Urine Bacteria Urine Mucus Ethyl Alcohol < 0.01 L SARS-CoV-2 (PCR) Negative SARS-CoV-2 Influenza Type A (PCR) Negative PCR FLU A Influenza Type B (PCR) Negative PCR FLU B RSV (PCR) Negative PCR RSV Group A Strep DNA NOT DETECTED POC Troponin I 02/04/23 02/04/23 02/04/23 10:59 11:20 12:39 WBC RBC Hgb Hct MCV MCH MCHC RDW Coeff of Nitin Plt Count Neut % (Auto) Lymph % (Auto) [place] % (Auto) Eos % (Auto) Baso % (Auto) Neut # (Auto) Lymph # (Auto) [place] # (Auto) Eos # (Auto) Baso # (Auto) D-Dimer Quant (PE/DVT) ABG pH 7.47 H ABG pCO2 40 ABG pO2 60.5 L ABG HCO3 29 H ABG Total CO2 25 ABG O2 Saturation 94 ABG Base Excess 4.8 H VBG pH VBG pCO2 VBG pO2 VBG HCO3 Carboxyhemoglobin 1.3 Sodium Potassium Chloride Carbon Dioxide BUN Creatinine Estimated Creat Clear Estimated GFR Glucose Lactate Calcium Troponin I C-Reactive Protein NT-Pro-B Natriuret Pep Urine Color Yellow Urine Appearance Clear Urine pH 5.5 Ur Specific [place] >= 1.030 Urine Protein 3+ A Urine Glucose (UA) Negative Urine Ketones Negative Urine Blood 3+ A Urine Nitrite Negative Urine Bilirubin 1+ A Urine Urobilinogen 0.2 Ur Leukocyte Esterase Negative Urine RBC 0-2 Urine WBC 2-5 Ur Squamous Epith Cells Few Amorphous Sediment Moderate A Urine Bacteria Moderate A Urine Mucus Few A Ethyl Alcohol SARS-CoV-2 (PCR) Influenza Type A (PCR) Influenza Type B (PCR) RSV (PCR) Group A Strep DNA POC Troponin I 0.19 H 02/04/23 02/04/23 12:50 18:54 WBC RBC Hgb Hct MCV MCH MCHC RDW Coeff of Nitin Plt Count Neut % (Auto) Lymph % (Auto) [place] % (Auto) Eos % (Auto) Baso % (Auto) Neut # (Auto) Lymph # (Auto) [place] # (Auto) Eos # (Auto) Baso # (Auto) D-Dimer Quant (PE/DVT) ABG pH ABG pCO2 ABG pO2 ABG HCO3 ABG Total CO2 ABG O2 Saturation ABG Base Excess VBG pH 7.428 VBG pCO2 46 VBG pO2 39.9 VBG HCO3 31 H Carboxyhemoglobin Sodium Potassium Chloride Carbon Dioxide BUN Creatinine Estimated Creat Clear Estimated GFR Glucose Lactate 1.5 Calcium Troponin I 0.16 H* C-Reactive Protein NT-Pro-B Natriuret Pep Urine Color Urine Appearance Urine pH Ur Specific [place] Urine Protein Urine Glucose (UA) Urine Ketones Urine Blood Urine Nitrite Urine Bilirubin Urine Urobilinogen Ur Leukocyte Esterase Urine RBC Urine WBC Ur Squamous Epith Cells Amorphous Sediment Urine Bacteria Urine Mucus Ethyl Alcohol SARS-CoV-2 (PCR) Influenza Type A (PCR) Influenza Type B (PCR) RSV (PCR) Group A Strep DNA POC Troponin I 0.20 H
[2023-02-05 07:22] LABS: HCO3 VBG 30 mmol/L (21-28); Lactate* 1.1 mmol/L (0.5-1.9); PCO2 VBG 53 mmHG (40-50); PO2 VBG 29.3 mmHG (25-47); pH VBG 7.366 (7.32-7.43)
[2023-02-05 07:39] LABS: Hematocrit 41.3 % (37.0-53.0); Mean Corpuscular HGB Conc 34 gm/dL (32-36); Mean Corpuscular Hemoglobin 30 pg (26-34); Mean Corpuscular Volume 88 fL (80-100); Platelet Count* 185 K/uL (140-440); Red Blood Count 4.68 m/uL (4.30-5.90); White Blood Count* 8.45 K/uL (4.50-11.00)
[2023-02-05 07:41] LABS: Slide Review Reflex No
[2023-02-05 07:50] LABS: Chloride* 102 mmol/L (96-114); Potassium* 3.8 mmol/L (3.6-5.1); Sodium* 137 mmol/L (135-149)
[2023-02-05 07:52] LABS: Creatinine* 0.8 mg/dL (0.5-1.5); Est. Creatinine Clearance* 54.05; Estimated Glomerular Filt Rate 90 ml/min
[2023-02-05 07:53] LABS: Blood Urea Nitrogen* 18 mg/dL (7-30); Carbon Dioxide* 32 mmol/L (20-32)
[2023-02-05 07:54] LABS: Calcium* 8.3 mg/dL (8.4-10.6); Glucose* 220 mg/dL (60-115); Magnesium* 1.9 mg/dL (1.5-2.6); Phosphorus* 2.4 mg/dL (2.5-4.5)
[2023-02-05 07:56] LABS: Hemoglobin A1C* 7.06 % (0-5.6)
[2023-02-05 08:03] LABS: NT Pro B Type NatriureticPept* 1150 pg/mL
[2023-02-05 08:10] LABS: C Reactive Protein* 21.5 mg/dL (0.5-1.0); Procalcitonin* 0.91 ng/mL (<0.50); Troponin I* 0.08 ng/mL (0.01-0.04)
[2023-02-05] MEDS: METOPROLOL SUCCINATE (XL) 25 MG TAB PO (08:44)
[2023-02-05] MEDS: LOSARTAN POTASSIUM 50 MG TABLET 100 MG PO (08:45)
[2023-02-05] MEDS: AMLODIPINE 5 MG TABLET PO (08:45)
[2023-02-05] MEDS: TRIAMTERENE-HCTZ 37.5-25 MG TB 1 TAB PO (08:45)
[2023-02-05] MEDS: OMEPRAZOLE 20 MG CAPSULE DR PO (08:45)
[2023-02-05] MEDS: POTASSIUM CHLORIDE 10 MEQ CAPSULE ER PO (08:45)
[2023-02-05] MEDS: predniSONE 20 MG TABLET 40 MG PO (09:31)
[2023-02-05] MEDS: IPRAT-ALBUT 0.5-2.5 MG/3 ML NEB 1 NEB IH (09:46)
[2023-02-05] MEDS: AZITHROMYCIN 250 MG TABLET PO (17:17)
[2023-02-05] MEDS: LACTOBACILLUS ACIDOPHILUS 1 TABLET 1 TAB PO (17:18)
[2023-02-05] MEDS: LORATADINE 10 MG TABLET PO (21:04)
[2023-02-05] MEDS: 0.9 % SODIUM CHLORIDE 250 ml IV (21:05)
[2023-02-05] MEDS: FLUTICASONE PROPIONATE NASAL 1 SPRAY NOSTRIL-B (21:05)
[2023-02-05] MEDS: ENOXAPARIN 40 MG/0.4 ML INJ SUBCUT (21:05)
--- NOTE | 2023-02-05 23:03 | PC.NURSE ---
pt verbalized restlessness. Ambulated with SBA approximately 200 ft. Tolerated RA and pt denied SOB. Requested popsicle for a snack.
--- NOTE | 2023-02-05 23:39 | PC.NURSE ---
Pt pleasant and cooperative. He denies pain, is on RA, SBA to BR with walker. Hard intermittent cough. Uses home CPAP, denies use of O2 @[facility], states I don't use it at home and it threw my sleep and data/stats off. Robitussin given at [facility] for cough, pt woke shortly after waking stating he was having flashback dreams. You didn't given me that melatonin did you? Walked in glass and returned to chair after small snack. Pt denies TV or music but rather wants quiet. Pt is hoping he can return home .
[2023-02-06 00:10] VITALS: BP 152/88; PULSE 99; RESP 24; TEMP 37.3; O2SAT 92
[2023-02-06] MEDS: ACETAMINOPHEN 325 MG TABLET 650 MG PO (00:26)
[2023-02-06 02:30] VITALS: BP 160/86; PULSE 95; RESP 26; TEMP 37.2; O2SAT 90
[2023-02-06] MEDS: PIPERACILLIN/TAZOBACTAM 3.375 GM in 0.9 % SODIUM CHLORIDE Mini-bag 100 ML IVPB ×2 (02:42→09:02)
[2023-02-06] MEDS: 0.9 % SODIUM CHLORIDE 250 ml IV (02:43)
[2023-02-06] MEDS: guaiFENesin 100 MG/ML CUP PO ×2 (03:49→04:55)
[2023-02-06 07:18] LABS: Basophils Absolute Auto 0.02 K/uL (0.00-0.30); Basophils Percent Auto 0.2 % (0.0-3.0); Hematocrit 41.4 % (37.0-53.0); Immature Granulocytes Abs Auto 0.18 K/uL (0.00-0.30); Immature Granulocytes Pct Auto 1.8 %; Mean Corpuscular HGB Conc 34 gm/dL (32-36); Mean Corpuscular Hemoglobin 29 pg (26-34); Mean Corpuscular Volume 87 fL (80-100); Platelet Count* 258 K/uL (140-440); RDW Coefficient of Variation % 13.3 % (11.5-15.5); Red Blood Count 4.78 m/uL (4.30-5.90); White Blood Count* 10.04 K/uL (4.50-11.00)
--- NOTE | 2023-02-06 07:26 | PC.NURSE ---
Pt alert and oriented x 3. Afebrile. Pt denies pain, chest pain, SOB, and N/V. Pt anterior and posterior lung sounds have expiratory wheezes and are?diminished. Pt is voiding, tolerating a regular diet, up SBA. Pt slept very little throughout?night due to cough fits, PRN medications given with little relief.
[2023-02-06 07:29] LABS: Chloride* 101 mmol/L (96-114); Potassium* 3.4 mmol/L (3.6-5.1); Sodium* 139 mmol/L (135-149)
[2023-02-06 07:32] LABS: Creatinine* 0.8 mg/dL (0.5-1.5); Est. Creatinine Clearance* 54.05; Estimated Glomerular Filt Rate 90 ml/min; Slide Review Reflex No
[2023-02-06 07:33] LABS: Blood Urea Nitrogen* 16 mg/dL (7-30); Carbon Dioxide* 35 mmol/L (20-32); Glucose* 159 mg/dL (60-115)
[2023-02-06 07:49] LABS: Procalcitonin* 0.67 ng/mL (<0.50)
[2023-02-06 07:51] VITALS: BP 164/81; PULSE 102; RESP 20; TEMP 37.4; O2SAT 91
[2023-02-06 07:51] LABS: C Reactive Protein* 15.3 mg/dL (0.5-1.0)
[2023-02-06] MEDS: AMLODIPINE 5 MG TABLET PO (09:02)
[2023-02-06] MEDS: predniSONE 20 MG TABLET 40 MG PO (09:02)
[2023-02-06] MEDS: POTASSIUM CHLORIDE 10 MEQ CAPSULE ER PO (09:03)
[2023-02-06] MEDS: METOPROLOL SUCCINATE (XL) 25 MG TAB PO (09:03)
[2023-02-06] MEDS: OMEPRAZOLE 20 MG CAPSULE DR PO (09:03)
[2023-02-06] MEDS: ASPIRIN 81 MG TABLET EC PO (09:04)
[2023-02-06] MEDS: BENZONATATE 100 MG CAPSULE PO (09:04)
[2023-02-06] MEDS: TRIAMTERENE-HCTZ 37.5-25 MG TB 1 TAB PO (09:04)
[2023-02-06] MEDS: LOSARTAN POTASSIUM 50 MG TABLET 100 MG PO (09:04)
[2023-02-06] MEDS: LACTOBACILLUS ACIDOPHILUS 1 TABLET 1 TAB PO (09:04)
[2023-02-06] MEDS: SODIUM CHLORIDE 0.9 % (FLUSH) 10 ML SYRINGE 5 ML IVF (09:05)
[2023-02-06] MEDS: IPRAT-ALBUT 0.5-2.5 MG/3 ML NEB 1 NEB IH (09:05)
[2023-02-06] MEDS: CODEINE/GUAIFENESIN 20-200MG/10 ML SOLN 5 ML PO (09:06)
--- NOTE | 2023-02-06 09:35 | RESP.RT ---
Patient has a strong persistent cough. He is clearing large amount of mucus after coughing. Aerobika has been effective, but he feels like it causes to much coughing. I recommended that he continue to use the Aerobika more often, but in shorter bursts. He is willing to continue nebs and Aerobika.
[2023-02-06 10:21] VITALS: BMI 43.2
[2023-02-06 12:10] VITALS: BP 163/79; PULSE 98; RESP 18; TEMP 37; O2SAT 93
[2023-02-06 13:22] VITALS: BP 174/94; PULSE 95; RESP 18; TEMP 37
--- NOTE | 2023-02-06 13:54 | PM.DS1 ---
DS: Providers Provider Date Seen: 02/06/23 Date of admission: 02/04/23 18:13 Primary care physician: Osman Byrne MD Admitting Clinician: Carlie Abraham MD Consults: PT, RT, Nutrition Attending Physician on discharge: Carlie Abraham MD Date of Discharge: 02/06/23 DS: Diagnosis Discharge Diagnosis (1) Bacterial lobar pneumonia: Status: Acute Problem details: - Dense left lingular consolidation on 02/04 imaging - Patient also had fever on admission; interestingly, WBC remained normal during stay - on Zosyn and Azithromycin (02/04) (2) Acute on chronic respiratory failure with hypoxemia: Status: Acute Problem details: - improved significantly from admission, tapered off of supplemental oxygen on 02/05 (3) Chronic obstructive pulmonary disease: Status: Acute Problem details: - treated with oral Prednisone, will discharge to complete full 5 day burst (4) PANCHO on CPAP: Status: Acute (5) Elevated troponin I level: Status: Acute Problem details: - no CP; type 2 myocardial infarction vs strain from acute illness - TTE obtained 02/05 Final Impressions: 1. Technically limited exam. 2. LVEF estimate 55-60%. Normal LV size. Mild concentric LVH. 3. Normal RV size and global function. 4. No significant valvular abnormalities. 5. PASP 40 mmHg, mean RAP 3 mmHg included. 6. Mildly dilated aortic root [4.0 cm] and ascending aorta [3.7 cm]. 7. Echo contrast was administered to enhance visualization of all left ventricular segments. (6) Diabetes type 2, controlled: Status: Acute Problem details: - history of this, current A1C 7 - intolerant of Metformin in the past; given current A1C <8, no medications started, routine outpatient f/u with PCP DS: Summary Hospital Course Hospital Course: Neville is a pleasant 78-year-old male who was admitted to the hospital for acute hypoxic respiratory failure in the setting of left lung infiltrate. He improved significantly on hospital day 1 after treatment with IV Zosyn and steroids, and was no longer requiring supplemental oxygen. Blood cultures remained negative throughout stay. His coughing paroxysms were controlled with prn Tessalon Perles and cough syrup, and he is requesting discharge home with on hospital day 2. Comorbidities remained stable, A1C 7. Requests for PCP upon follow-up: Patient will need a repeat chest x-ray in 4-6 weeks to ensure resolution of left sided infiltrate. 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 Intermittent wheezing bilateral apices, clear with cough. Rhonchi bilaterally, L>R Ext: wwp, 2+ edema BLE Skin: No concerning skin lesions or rashes on exposed skin Neuro: No focal deficits, no resting tremor Psych: Appropriate Const: Vital Signs, click to edit/add: Vital Signs - 24 hr 02/05/23 15:15 02/05/23 15:15 02/05/23 15:15 Temperature Pulse Rate 95 Pulse Rate [Pulse Oximeter] Respiratory Rate 32 H Blood Pressure Blood Pressure [Ri ght Arm] Pulse Oximetry 101 H 94 Oxygen Delivery Me thod Room Air 02/05/23 15:15 02/05/23 15:15 02/05/23 19:00 Temperature 98.0 F 97.9 F Pulse Rate Pulse Rate [Pulse Oximeter] 101 H 101 H 108 H Respiratory Rate 32 H 32 H 28 H Blood Pressure Blood Pressure [Ri ght Arm] 140/71 H 134/81 Pulse Oximetry 94 94 Oxygen Delivery Me thod Room Air Room Air 02/06/23 00:10 02/06/23 00:10 02/06/23 00:10 Temperature Pulse Rate Pulse Rate [Pulse Oximeter] 99 Respiratory Rate 24 Blood Pressure Blood Pressure [Ri ght Arm] Pulse Oximetry 92 92 Oxygen Delivery Me thod Room Air 02/06/23 00:10 02/06/23 02:30 02/06/23 07:51 Temperature 99.1 F 99.0 F Pulse Rate Pulse Rate [Pulse Oximeter] 99 95 Respiratory Rate 24 26 H Blood Pressure Blood Pressure [Ri ght Arm] 152/88 H 160/86 H Pulse Oximetry 92 90 91 Oxygen Delivery Me thod Room Air Room Air 02/06/23 07:51 02/06/23 07:51 02/06/23 12:10 Temperature 99.4 F 98.6 F Pulse Rate Pulse Rate [Pulse Oximeter] 102 H 98 Respiratory Rate 20 18 Blood Pressure Blood Pressure [Ri ght Arm] 164/81 H 163/79 H Pulse Oximetry 91 91 93 Oxygen Delivery Me thod Room Air Room Air Room Air 02/06/23 13:22 Temperature 98.6 F Pulse Rate 95 Pulse Rate [Pulse Oximeter] Respiratory Rate 18 Blood Pressure 174/94 H Blood Pressure [Ri ght Arm] Pulse Oximetry Oxygen Delivery Me thod DS: Data Data Completed and Pending Labs on day of discharge: Labs from last 24 hours 02/06/23 06:45 WBC 10.04 RBC 4.78 Hgb 14.0 Hct 41.4 MCV 87 MCH 29 MCHC 34 RDW Coeff of Nitin 13.3 Plt Count 258 Neut % (Auto) 81.0 H Lymph % (Auto) 9.0 L [place] % (Auto) 8.0 Eos % (Auto) 0.0 Baso % (Auto) 0.2 Neut # (Auto) 8.10 H Lymph # (Auto) 0.90 [place] # (Auto) 0.80 Eos # (Auto) 0.00 Baso # (Auto) 0.02 Sodium 139 Potassium 3.4 L Chloride 101 Carbon Dioxide 35 H BUN 16 Creatinine 0.8 Estimated Creat Clear 54.05 Estimated GFR 90 Glucose 159 H Calcium 9.0 C-Reactive Protein 15.3 H Procalcitonin 0.67 H Preliminary micro results at discharge 02/04/23 11:10 Blood Culture - Preliminary Blood NO GROWTH AFTER 48 HOURS 02/04/23 10:58 Blood Culture - Preliminary Blood NO GROWTH AFTER 48 HOURS Discharge Plan Discharge Disposition: Home, Self-Care Date of Admission: 02/04/23 18:13 Attending Provider on Discharge: Carlie Abraham Primary Care Provider: Osman Byrne Condition: Improved Anticipated Discharge Date/Time: 02/06/23 14:00 Discharge Medications: New azithromycin 250 mg Tablet 250 mg PO Q24H Qty: 3 0RF Taper: Z-GENIA 250 mg Q24H for 3 Days and 0 Hour amoxicillin-pot clavulanate 875-125 mg tablet 1 tab PO Q12H 7 Days Qty: 14 0RF prednisone 20 mg tablet 20 mg PO DAILY Qty: 2 0RF codeine-guaifenesin 10-100 mg/5 mL liquid 5 ml PO Q6H PRNQty: 120 0RF benzonatate 100 mg capsule 100 mg PO BID-TID PRN (Reason: cough) Qty: 20 0RF Continued CPAP Machine Not Applicable loratadine 10 mg tablet 10 mg PO DAILY aspirin 81 mg tablet,delayed release (DR/EC) 81 mg PO DAILY omega-3 fatty acids 1,000 mg capsule 1,000 mg PO DAILY multivitamin [Multiple Vitamins] Tablet 1 tab PO QAM fluticasone propionate 50 mcg/actuation spray,suspension 1 spray intranasal DAILY Qty: 16 11RF omeprazole 20 mg capsule,delayed release(DR/EC) 20 mg PO BID Qty: 180 3RF potassium chloride 10 mEq capsule, extended release 10 meq PO DAILY Qty: 90 3RF triamterene-hydrochlorothiazid 37.5-25 mg capsule 1 cap PO DAILY Qty: 90 3RF atorvastatin 10 mg tablet 10 mg PO HS metoprolol succinate 25 mg tablet extended release 24 hr 25 mg PO DAILY losartan 100 mg tablet 100 mg PO DAILY amlodipine 5 mg tablet 5 mg PO DAILY Rx Instructions: TAKE ONE TABLET BY MOUTH ONE TIME DAILY Discharge Orders: Discharge Order (Routine); Ordered 02/06/23 Ordered By: Carlie Abraham Consulting provider completed their portion of the discharge: No Patient Education: Benzonatate (By mouth), Prednisone (By mouth), Amoxicillin/Clavulanate Potassium (By mouth), Azithromycin (By mouth), Narcotic-Antitussive/Decongestant/Expectorant (By mouth), Bacterial Pneumonia (DC) Additional Instructions: At the pharmacy: - 2 antibiotics (take as directed for your pneumonia) - Prednisone (steroid) - take for 2 more days (best to take in the morning with food) - Tessalon Perles and Codeine cough syrup as needed for coughing spasms See Dr. Byrne next week for a recheck, you will also need a repeat chest XR in 4 weeks. Activity Level: No strenuous activity and Light activity Discharge Diet: Diabetic Follow Up Appointments: Osman Byrne MD [Primary Care Provider] - 02/11/23 9:45 am ([facility] with Dr. Bolden for f/u appt.) Forms: [employer] Info Instructions
== END 2023-02-06 14:00 | disposition home or self-care (01) | DRG 190 ==
LOC: ED 10:56 → MEDSURG 15:24
PROVIDERS: Family Medicine; Admitting Provider Internal Medicine; Emergency Provider Family Medicine; PCP Family Medicine; Visit Provider Internal Medicine
DX: J44.0 Chronic obstructive pulmonary disease with (acute) lower respiratory infection (principal); J15.9 Unspecified bacterial pneumonia; J96.21 Acute and chronic respiratory failure with hypoxia; J44.1 Chronic obstructive pulmonary disease with (acute) exacerbation; G47.33 Obstructive sleep apnea (adult) (pediatric); E11.9 Type 2 diabetes mellitus without complications; R77.8 Other specified abnormalities of plasma proteins; Z99.89 Dependence on other enabling machines and devices; Z87.891 Personal history of nicotine dependence; I10 Essential (primary) hypertension; K21.9 Gastro-esophageal reflux disease without esophagitis; E80.4 Gilbert syndrome
CPT/HCPCS: 36415; 36600; 71046; 71260; 80048; 81001; 82077; 82803; 83036; 83605; 83735; 83880; 84100; 84145; 84484; 85025; 85027; 85379; 86140; 87040; 87086; 87631; 87651; 93005; 93306; 94640; 94664; 94761; 97116; 97162; 99285; 99291; A9270; J0456; J0696; J1335; J1650; J1720; J2543; J7030; J7050; J7512; Q9967

== ENCOUNTER 2023-06-26 20:53 | Emergency (ER) | payer MEDICARE, SELFPAY ==
[2023-06-26 21:12] VITALS: BP 192/102; PULSE 106; RESP 16; TEMP 36.7; O2SAT 98; BMI 38.4
--- NOTE | 2023-06-26 21:16 | ED.GENADULT ---
HPI - General Adult General Time Seen by Provider: 21:16 Date Seen: 06/26/23 Chief complaint: Hip Injury/Pain Stated complaint: hip pain Time Seen by Provider: 06/26/23 21:16 Source: patient and RN notes reviewed Mode of arrival: ambulatory Limitations: no limitations History of Present Illness HPI narrative: Patient is a very pleasant 78-year-old gentleman with history of type 2 diabetes, hypertension, hip replacement on the right x2 who comes to the emergency room with right hip pain. Patient notes a right hip replacement in 2016 that was partial. Unfortunately he developed a complication and had a repeat replacement full in 2017. He has had no problems since that time until 4 days ago when he noted right lateral hip and right groin pain. He states that this pain is similar to what he experienced in 2016 prior to needing the replacement. He notes occasional discomfort radiating into his leg. His leg is not weak and he has not lost any bowel or bladder control. He denies low back pain although he has had a history of surgeries. 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 He states he cannot remember any falls or unusual movements that may have caused this. He has not had any fever or chills. He notes he has taken Tylenol. He cannot take ibuprofen because it causes him nausea. Walking and any movement increases his discomfort. Resting improves this pain. Related Data Home Medications Medication Instructions Recorded Confirmed CPAP Machine Not Applicable 09/04/22 02/11/23 aspirin 81 mg tablet,delayed 81 mg PO DAILY 09/04/22 02/11/23 release loratadine 10 mg tablet 10 mg PO DAILY 09/04/22 02/11/23 multivitamin (Multiple Vitamins 1 tab PO QAM 09/04/22 02/11/23 tablet) omega-3 fatty acids 1,000 mg 1,000 mg PO DAILY 09/04/22 02/11/23 capsule amlodipine 5 mg tablet 5 mg PO DAILY 02/04/23 02/11/23 atorvastatin 10 mg tablet 10 mg PO HS 02/04/23 02/11/23 losartan 100 mg tablet 100 mg PO DAILY 02/04/23 02/11/23 metoprolol succinate 25 mg 25 mg PO DAILY 02/04/23 02/11/23 tablet,extended release 24 hr Previous Rx's Medication Instructions Recorded fluticasone propionate 50 1 spray intranasal DAILY #16 grams 09/04/22 mcg/actuation nasal spray,suspension omeprazole 20 mg capsule,delayed 20 mg PO BID #180 caps 09/04/22 release potassium chloride 10 mEq 10 meq PO DAILY #90 caps 09/04/22 capsule,extended release triamterene 37.5 1 cap PO DAILY #90 caps 09/04/22 mg-hydrochlorothiazide 25 mg capsule amoxicillin 875 mg-potassium 1 tab PO Q12H 7 days #14 tabs 02/06/23 clavulanate 125 mg tablet benzonatate 100 mg capsule 100 mg PO BID-TID PRN cough #20 02/06/23 caps codeine 10 mg-guaifenesin 100 mg/5 5 ml PO Q6H PRN #120 mL 02/06/23 mL oral liquid prednisone 20 mg tablet 20 mg PO DAILY #2 tabs 02/06/23 Allergies Allergy/AdvReac Type Severity Reaction Status Date / Time oxycodone Allergy Mild Gastrointestinal Verified 02/11/23 09:48 Upset silver nitrate Allergy Mild Rash Verified 02/11/23 09:48 Review of Systems Status of ROS: Reports: 6 or more systems reviewed and unremarkable except as noted in History and below Const: Denies: fever, chills, change in weight or fatigue Eyes: Denies: change in vision Cardio: Denies: chest pain or shortness of breath with exertion Resp: Denies: shortness of breath GI: Denies: abdominal pain, nausea or vomiting : Denies: painful urination Musculo: Reports: extremity pain and joint pain (Right hip); Denies: back pain Integ/Breast: Denies: rash Neuro: Denies: headache, numbness in extremities or weakness in extremities Endo: Denies: fatigue [facility] Medical History Tobacco use (01/09/12) ?Z72.0 - Tobacco use (ICD-10) Renal mass (05/17/13) ?N28.89 - Other specified disorders of kidney and ureter (ICD-10) Meningioma ?D32.9 - Benign neoplasm of meninges, unspecified (ICD-10) Kidney calculus (01/09/12) ?N20.0 - Calculus of kidney (ICD-10) Surgical History S/P eye surgery ?Z98.890 - Other specified postprocedural states (ICD-10) Status post arthroscopic knee surgery ?Z98.890 - Other specified postprocedural states (ICD-10) S/P craniotomy ?Z98.890 - Other specified postprocedural states (ICD-10) Status post transurethral resection of prostate (01/09/12) ?Z90.79 - Acquired absence of other genital organ(s) (ICD-10) History of umbilical hernia repair (01/09/12) ?Z98.890 - Other specified postprocedural states (ICD-10) ?Z87.19 - Personal history of other diseases of the digestive system (ICD-10) History of tonsillectomy (01/09/12) ?Z90.89 - Acquired absence of other organs (ICD-10) History of spinal surgery (01/09/12) ?Z98.890 - Other specified postprocedural states (ICD-10) History of shoulder surgery (01/09/12) ?Z98.890 - Other specified postprocedural states (ICD-10) History of cholecystectomy (01/09/12) ?Z90.49 - Acquired absence of other specified parts of digestive tract (ICD-10) History of appendectomy ?Z90.49 - Acquired absence of other specified parts of digestive tract (ICD-10) Social History Highest level of school completed/degree received: Associate degree: occupational, technical, vocational program Smoking Status: Former smoker What tobacco products do you use: cigarettes Smoking quit date/years: >15 years ago Do you use any of these nicotine containing products: None Second hand tobacco smoke exposure: No How often do you have a drink containing alcohol: never How often do you have six or more drinks on one occasion: Never AUDIT-C Alcohol total score: 0 Non-prescribed substance use: denies use Caffeine: No service: No Exam Narrative: Exam Narrative: Patient is alert and oriented. Very pleasant gentleman. No acute distress. Resting comfortably on the exam table in room 6. Heart with regular rate and rhythm and lungs are clear. Abdomen is soft nontender. Patient does have tenderness over the right lateral hip. No pain with palpation in groin and no bulging in this area. Patient has sensation motor fully intact distally. Const: Vital Signs, click to edit/add: Vital Signs - 24 hr 06/26/23 21:12 Temperature 98.1 F Pulse Rate [Pulse Oximeter] 106 H Respiratory Rate 16 Blood Pressure [Ri ght Upper Arm] 192/102 H Pulse Oximetry 98 Oxygen Delivery Me thod Room Air Documenting provider has reviewed patient's vital signs: yes Course Course ED Course: Patient is presenting with right hip pain x4 days without any known insults. Will obtain x-rays at this time. Reevaluation(s) Reevaluation #1: Further examination shows patient to be without lumbar discomfort with palpation. Internal external rotation of the hip is uncomfortable for the patient. He is able to flex extend. Distally sensation and motor is intact including full motor and sensation at the ankle and toes. Vital Signs Vital signs: Initial Vital Signs Temperature 98.1 F 06/26/23 21:12 Temperature Source Temporal Artery Scan 06/26/23 21:12 Pulse Rate 106 H 06/26/23 21:12 Respiratory Rate 16 06/26/23 21:12 Blood Pressure 192/102 H 06/26/23 21:12 Blood Pressure Mean 132 H 06/26/23 21:12 Blood Pressure Position Sitting 06/26/23 21:12 Pulse Oximetry 98 06/26/23 21:12 Oxygen Delivery Method Room Air 06/26/23 21:12 Vital Signs Temperature 98.1 F 06/26/23 21:12 Pulse Rate 106 H 06/26/23 21:12 Respiratory Rate 16 06/26/23 21:12 Blood Pressure 192/102 H 06/26/23 21:12 Pulse Oximetry 98 06/26/23 21:12 Oxygen Delivery Method Room Air 06/26/23 21:12 Temperature 98.1 F 06/26/23 21:12 Pulse Rate 106 H 06/26/23 21:12 Respiratory Rate 16 06/26/23 21:12 Blood Pressure 192/102 H 06/26/23 21:12 Pulse Oximetry 98 06/26/23 21:12 Oxygen Delivery Method Room Air 06/26/23 21:12 Medical Decision Making MDM Narrative Medical decision making narrative: 1. Right hip pain-at this time x-ray is reassuring with no acute abnormalities. However patient is reporting pain over the last 4 days when he has been essentially pain-free for a couple years. Do suggested that he sees follow-up with orthopedics for recheck. He may be candidate for MRI versus CT. I do suggest he see or Cindy. He may use ibuprofen or Tylenol as needed for pain. Recommend limiting activity that would include twisting of the hip or a lot of bending. 2. Disposition-home at this time. Return for worsening symptoms and as needed. Medical Records Medical records reviewed: Yes I reviewed the patient's medical records Imaging Data Right hip and pelvis x-rays: Attestation: I have reviewed the pertinent imaging results. My impression: I do not note any acute fractures. Radiologist's impression: Right hip arthroplasty hardware intact. No periprosthetic fracture or loosening. Lower lumbar spine degenerative disc disease. Iliac wings, pubic rami, and left hip intact. IMPRESSION: 1. No acute pelvic or right hip fracture. Right hip arthroplasty hardware in anatomic alignment. Discharge Plan Discharge Clinical Impression: Acute hip pain Qualifiers: Laterality: right Qualified Code(s): M25.551 - Pain in right hip Patient Disposition: Home, Self-Care Condition: Unchanged Additional Instructions: Suggest follow-up with our orthopedic surgeons for re-evaluation. He may possibly need additional radiological studies. I would suggest seeing or Dr. White. The phone number is [phone] Ibuprofen or Tylenol may be used for discomfort. Recommend light activity without intense bending or twisting. Prescriptions: No Action CPAP Machine Not Applicable loratadine 10 mg tablet 10 mg PO DAILY aspirin 81 mg tablet,delayed release (DR/EC) 81 mg PO DAILY omega-3 fatty acids 1,000 mg capsule 1,000 mg PO DAILY multivitamin [Multiple Vitamins] Tablet 1 tab PO QAM fluticasone propionate 50 mcg/actuation spray,suspension 1 spray intranasal DAILY Qty: 16 11RF omeprazole 20 mg capsule,delayed release(DR/EC) 20 mg PO BID Qty: 180 3RF potassium chloride 10 mEq capsule, extended release 10 meq PO DAILY Qty: 90 3RF triamterene-hydrochlorothiazid 37.5-25 mg capsule 1 cap PO DAILY Qty: 90 3RF atorvastatin 10 mg tablet 10 mg PO HS metoprolol succinate 25 mg tablet extended release 24 hr 25 mg PO DAILY losartan 100 mg tablet 100 mg PO DAILY amlodipine 5 mg tablet 5 mg PO DAILY Rx Instructions: TAKE ONE TABLET BY MOUTH ONE TIME DAILY amoxicillin-pot clavulanate 875-125 mg tablet 1 tab PO Q12H 7 Days Qty: 14 0RF prednisone 20 mg tablet 20 mg PO DAILY Qty: 2 0RF codeine-guaifenesin 10-100 mg/5 mL liquid 5 ml PO Q6H PRNQty: 120 0RF benzonatate 100 mg capsule 100 mg PO BID-TID PRN (Reason: cough) Qty: 20 0RF Follow Up/Referrals: Osman Byrne MD [Primary Care Provider] - Stand [facility]
--- NOTE | 2023-06-26 21:27 | CRLHL7_ITS ---
For Patients: As a result of the Cures Act, medical imaging exams and procedure reports are released immediately into your electronic medical record. You may view this report before your referring provider. If you have questions, please contact your health care provider. INDICATION: Right hip and pelvic pain. History of hip replacement. TECHNIQUE: Pelvis radiograph 1 view Hip radiograph 2 views COMPARISON: 12/04/2017 FINDINGS: Right hip arthroplasty hardware intact. No periprosthetic fracture or loosening. Lower lumbar spine degenerative disc disease. Iliac wings, pubic rami, and left hip intact. IMPRESSION: 1. No acute pelvic or right hip fracture. Right hip arthroplasty hardware in anatomic alignment. Dictated by Malcom Ordoñez MD @ 06/26/2023 11:15:07 PM Dictated by: Malcom Ordoñez MD @ 06/26/2023 23:15:13 (Electronically Signed)
== END 2023-06-26 23:43 | disposition home or self-care (01) ==
PROVIDERS: Emergency Provider Family Medicine; PCP Family Medicine
DX: M25.551 Pain in right hip (principal)
CPT/HCPCS: 73502; 99283; 99284

== ENCOUNTER 2023-07-13 10:18 | Emergency (ER) | payer MEDICARE, SELFPAY ==
[2023-07-13 10:22] VITALS: BP 183/84; PULSE 90; RESP 16; TEMP 36.9; O2SAT 97; BMI 39.2
--- NOTE | 2023-07-13 11:18 | CRLHL7_ITS ---
For Patients: As a result of the Cures Act, medical imaging exams and procedure reports are released immediately into your electronic medical record. You may view this report before your referring provider. If you have questions, please contact your health care provider. Indication: Right groin pain relating to bending. Technique: An AP view of the pelvis was acquired as well as AP and lateral views of the right hip Comparison: June 26, 2023 Findings: Demineralized osseous structures. Degenerative changes of the visualized lower lumbar spine. Mild left hip joint osteoarthritis. Right hip arthroplasty. No acute fracture, dislocation or destructive process identified. No specific complication noted regarding the right hip. Impression: Demineralization and degenerative change. Right hip arthroplasty. No acute focal finding or substantial change when compared to June 26, 2023 Dictated by George Tran MD @ 07/13/2023 12:46:04 PM (Electronically Signed)
--- NOTE | 2023-07-13 11:18 | ED_ITS ---
HPI - General Adult General Chief complaint: Hip Injury/Pain Stated complaint: Pain in R hip, artificial hip Time Seen by Provider: 07/13/23 10:58 History of Present Illness HPI narrative: This 78-year-old male comes in reporting pain in his right hip radiating down to his knee. The pain extends from the groin and radiates to the knee by way of the inner aspect of his right thigh. He states he has been having some pain in this area over the past few weeks and did have an x-ray a couple weeks ago with no acute findings. Last night he was bending down to get something and when he does so he keeps his knees Pred apart as he has a right hip replacement. He also states that his knees are causing him pain and he will need knee replacements. When bending down yesterday evening he had increased pain. He was able to sleep last night the pain is worse with ambulating and when abd ucting his right leg. Related Data Home Medications Medication Instructions Recorded Confirmed CPAP Machine Not Applicable 09/04/22 06/30/23 aspirin 81 mg tablet,delayed 81 mg PO DAILY 09/04/22 07/13/23 release loratadine 10 mg tablet 10 mg PO DAILY 09/04/22 06/30/23 multivitamin (Multiple Vitamins 1 tab PO QAM 09/04/22 07/13/23 tablet) omega-3 fatty acids 1,000 mg 1,000 mg PO DAILY 09/04/22 07/13/23 capsule amlodipine 5 mg tablet 5 mg PO DAILY 02/04/23 07/13/23 Previous Rx's Medication Instructions Recorded fluticasone propionate 50 1 spray intranasal DAILY #16 grams 09/04/22 mcg/actuation nasal spray,suspension triamterene 37.5 1 cap PO DAILY #90 caps 09/04/22 mg-hydrochlorothiazide 25 mg capsule atorvastatin 10 mg tablet 10 mg PO QPM #90 tabs 07/10/23 losartan 100 mg tablet 100 mg PO DAILY #90 tabs 07/10/23 metoprolol succinate 25 mg 25 mg PO DAILY #90 tabs 07/10/23 tablet,extended release 24 hr omeprazole 20 mg capsule,delayed 20 mg PO BID #180 caps 07/10/23 release potassium chloride 10 mEq 10 meq PO DAILY #90 caps 07/10/23 capsule,extended release cyclobenzaprine 10 mg tablet 10 mg PO TID #15 tabs 07/13/23 hydrocodone 5 mg-acetaminophen 325 1 tab PO Q4-6H PRN pain #15 tabs 07/13/23 mg tablet Allergies Allergy/AdvReac Type Severity Reaction Status Date / Time oxycodone Allergy Mild Gastrointestinal Verified 07/13/23 10:28 Upset silver nitrate Allergy Mild Rash Verified 07/13/23 10:28 Review of Systems Status of ROS: Reports: 10 or more systems reviewed and unremarkable except as noted in History and below Narrative: Constitutional: No fevers, no weight gain or loss. Eyes: No discharge. No vision changes. HENT: No congestion, no sore throat, no ear pain. Cardiovascular: No chest pain, no palpitations. Respiratory: No shortness of breath, no wheezes, no cough. Gastrointestinal: No abdominal pain, no vomiting, no diarrhea. Genitourinary: No dysuria, no hematuria. Musculoskeletal: Right hip and leg pain as described above. Skin: No rashes, no pruritis. Neurological: No dizziness, weakness, sensory change, speech change. Endo/Heme/Allergies: No bruising or bleeding. No polydipsia. Pysch: no suicidality, no anxiety, no insomnia. All other systems reviewed and are negative. [facility] Medical History (Updated 07/13/23 @ 12:13 by Osman Horn MD) Tobacco use (01/09/12) ?Z72.0 - Tobacco use (ICD-10) Renal mass (05/17/13) ?N28.89 - Other specified disorders of kidney and ureter (ICD-10) Meningioma ?D32.9 - Benign neoplasm of meninges, unspecified (ICD-10) Kidney calculus (01/09/12) ?N20.0 - Calculus of kidney (ICD-10) Surgical History (Updated 06/30/23 @ 11:07 by Osman Chacko MD) History of right hip replacement ?Z96.641 - Presence of right artificial hip joint (ICD-10) S/P eye surgery ?Z98.890 - Other specified postprocedural states (ICD-10) Status post arthroscopic knee surgery ?Z98.890 - Other specified postprocedural states (ICD-10) S/P craniotomy ?Z98.890 - Other specified postprocedural states (ICD-10) Status post transurethral resection of prostate (01/09/12) ?Z90.79 - Acquired absence of other genital organ(s) (ICD-10) History of umbilical hernia repair (01/09/12) ?Z98.890 - Other specified postprocedural states (ICD-10) ?Z87.19 - Personal history of other diseases of the digestive system (ICD-10) History of tonsillectomy (01/09/12) ?Z90.89 - Acquired absence of other organs (ICD-10) History of spinal surgery (01/09/12) ?Z98.890 - Other specified postprocedural states (ICD-10) History of shoulder surgery (01/09/12) ?Z98.890 - Other specified postprocedural states (ICD-10) History of cholecystectomy (01/09/12) ?Z90.49 - Acquired absence of other specified parts of digestive tract (ICD- 10) History of appendectomy ?Z90.49 - Acquired absence of other specified parts of digestive tract (ICD- 10) Social History Highest level of school completed/degree received: Associate degree: occupational, technical, vocational program Smoking Status: Former smoker What tobacco products do you use: cigarettes Smoking quit date/years: >15 years ago Do you use any of these nicotine containing products: None Second hand tobacco smoke exposure: No How often do you have a drink containing alcohol: never How often do you have six or more drinks on one occasion: Never AUDIT-C Alcohol total score: 0 Non-prescribed substance use: denies use Caffeine: No service: No Exam Narrative: Exam Narrative: Constitutional: Well-developed, well-nourished, no acute distress. HEENT: Normocephalic, atraumatic. Neck: Normal range of motion. Nontender. Supple. Heart: Intact distal pulses. Lungs: No chest discomfort. No wheezes, rhonchi, or rales. Abdomen: Nontender. Back: Normal range of motion. Extremities: Normal range of motion. Right hip pain when adducting his right leg. Range of motion is intact. He is able to ambulate. He has mild pain when stressing the hip joint and rotating his leg externally and internally. Skin: Intact. No rash. Warm. No erythema or pallor. Neurologic: No altered sensation. No weakness. Alert and oriented. Psychiatric: No suicidality. No anxiety or depression. No insomnia. Nursing notes and vitals signs are reviewed. Const: Vital Signs, click to edit/add: Vital Signs - 24 hr 07/13/23 10:22 Temperature 98.5 F Pulse Rate [Pulse Oximeter] 90 Respiratory Rate 16 Blood Pressure [Ri ght Upper Arm] 183/84 H Pulse Oximetry 97 Oxygen Delivery Me thod Room Air Course Vital Signs Vital signs: Initial Vital Signs Temperature 98.5 F 07/13/23 10:22 Temperature Source Temporal Artery Scan 07/13/23 10:22 Pulse Rate 90 07/13/23 10:22 Respiratory Rate 16 07/13/23 10:22 Blood Pressure 183/84 H 07/13/23 10:22 Blood Pressure Mean 117 H 07/13/23 10:22 Blood Pressure Position Sitting 07/13/23 10:22 Pulse Oximetry 97 07/13/23 10:22 Oxygen Delivery Method Room Air 07/13/23 10:22 Vital Signs Temperature 98.5 F 07/13/23 10:22 Pulse Rate 90 07/13/23 10:22 Respiratory Rate 16 07/13/23 10:22 Blood Pressure 183/84 H 07/13/23 10:22 Pulse Oximetry 97 07/13/23 10:22 Oxygen Delivery Method Room Air 07/13/23 10:22 Temperature 98.5 F 07/13/23 10:22 Pulse Rate 90 07/13/23 10:22 Respiratory Rate 16 07/13/23 10:22 Blood Pressure 183/84 H 07/13/23 10:22 Pulse Oximetry 97 07/13/23 10:22 Oxygen Delivery Method Room Air 07/13/23 10:22 Medical Decision Making MDM Narrative Medical decision making narrative: This patient comes in with worsening pain in his right hip. An x-ray of of the right hip shows no acute findings by my review. Radiology report is pending. This patient has pain when adducting his right leg suggesting muscle strain. This worsened last evening when he bent forward to pick something up. The patient is able to ambulate. He did have a follow-up appointment with orthopedic clinic. I provided prescriptions for Flexeril and [place]. He understands that ongoing medications will need to be managed by his primary physician. Discharge Plan Discharge Clinical Impression: Acute right hip pain Patient Disposition: Home, Self-Care Condition: Stable Additional Instructions: Take medication as prescribed. Increase activity as tolerated. Follow up with MD as needed. Return if worsening. Prescriptions: New cyclobenzaprine 10 mg tablet 10 mg PO TID Qty: 15 0RF hydrocodone-acetaminophen 5-325 mg tablet 1 tab PO Q4-6H PRN (Reason: pain) Qty: 15 0RF No Action CPAP Machine Not Applicable loratadine 10 mg tablet 10 mg PO DAILY aspirin 81 mg tablet,delayed release (DR/EC) 81 mg PO DAILY omega-3 fatty acids 1,000 mg capsule 1,000 mg PO DAILY multivitamin [Multiple Vitamins] Tablet 1 tab PO QAM fluticasone propionate 50 mcg/actuation spray,suspension 1 spray intranasal DAILY Qty: 16 11RF triamterene-hydrochlorothiazid 37.5-25 mg capsule 1 cap PO DAILY Qty: 90 3RF amlodipine 5 mg tablet 5 mg PO DAILY Rx Instructions: TAKE ONE TABLET BY MOUTH ONE TIME DAILY omeprazole 20 mg capsule,delayed release(DR/EC) 20 mg PO BID Qty: 180 2RF potassium chloride 10 mEq capsule, extended release 10 meq PO DAILY Qty: 90 2RF losartan 100 mg tablet 100 mg PO DAILY Qty: 90 1RF atorvastatin 10 mg tablet 10 mg PO QPM Qty: 90 2RF metoprolol succinate 25 mg tablet extended release 24 hr 25 mg PO DAILY Qty: 90 2RF Follow Up/Referrals: Osman Byrne MD [Primary Care Provider] - Stand Alone Forms: [employer] Info Instructions
== END 2023-07-13 12:25 | disposition home or self-care (01) ==
PROVIDERS: Emergency Provider Emergency Medicine Emergency Medical Services; PCP Family Medicine
DX: M25.551 Pain in right hip (principal)
CPT/HCPCS: 73502; 99283; 99284

== ENCOUNTER 2023-07-22 19:39 | Outpatient (CLI) | payer MEDICARE, SELFPAY ==
--- NOTE | 2023-07-22 20:00 | CRLHL7_ITS ---
For Patients: As a result of the Century Cures Act, medical imaging exams and procedure reports are released immediately into your electronic medical record. You may view this report before your referring provider. If you have questions, please contact your health care provider. Indication: Right hip pain. Previous right hip replacement Technique: Multiplanar multisequence MRI of the right hip was performed without contrast Comparison: Radiographs 07/13/2023, 06/26/2023 and 12/02/2017 Findings: There is a right hip arthroplasty with moderate susceptibility artifact surrounding the hardware. Given limitations of study, and there is no significant joint effusion or bulky synovitis. No periprostatic signal abnormality or osseous resorption is detected to indicate loosening. There is tear the right proximal adductor longus and brevis tendons, located approximately 3.4 centimeters from adductor aponeurosis. There is a large fluid filled gap/hematoma measuring 10 centimeters in craniocaudal dimensions by 5.4 centimeters transverse. There is differential tendon retraction between 1.8 centimeters and 7.0 centimeters (coronal series 2, image 11-13). Surrounding soft tissue edema is present. There is mild edema at the pubic bodies, right greater than left. Large [id number] imaging of the pelvis demonstrates no occult pelvic fracture or osteonecrosis. No asymmetric left hip joint effusion is present. There is no pelvic or inguinal lymphadenopathy. Impression: 1. Tear of the right adductor longus and brevis tendons near their origin with a large fluid-filled gap and differential tendon retraction as described above. 2. Right hip arthroplasty without MR evidence of loosening or significant effusion given limitations of study. Dictated by Oj El MD @ 07/24/2023 8:57:55 AM (Electronically Signed)
== END 2023-07-22 19:40 | disposition home or self-care (01) ==
LOC: MRI 19:42
PROVIDERS: PCP Family Medicine; Visit Provider Orthopaedic Surgery
DX: M25.551 Pain in right hip (principal); S76.011A Strain of muscle, fascia and tendon of right hip, initial encounter; S70.11XA Contusion of right thigh, initial encounter
CPT/HCPCS: 73721

== ENCOUNTER 2023-08-20 09:03 | Outpatient (CLI) | payer MEDICARE, SELFPAY | END 2023-08-20 09:04 | disposition home or self-care (01) | PROVIDERS: PCP Family Medicine; Visit Provider Family Medicine | DX: Z00.00 Encounter for general adult medical examination without abnormal findings (principal); E78.5 Hyperlipidemia, unspecified; I10 Essential (primary) hypertension; E11.9 Type 2 diabetes mellitus without complications | CPT/HCPCS: 80048; 80061 ==

== ENCOUNTER 2023-09-16 08:00 | Outpatient (RCR) | payer MEDICARE, SELFPAY ==
--- NOTE | 2023-07-18 17:46 | PT.OPEX ---
[facility] [place] [facility] Eval PT [facility] Outpatient Eval Start: 07/18/23 07:51 Freq: Status: Active Protocol: Document 07/18/23 08:55 HN (Rec: 07/18/23 17:46 HN [id number]) E-signed By Crystal Bedolla DPT Physical Therapy Outpatient Evaluation Insurance Information Recert Due Date 10/15/23 Insurance Name Medicare B Insurance Information/Comments [employer] medicare advantage Medical Diagnosis Radiculopathy, site unspecified M54. 10 pain in the right hip M25. 551 Treating Diagnosis pain in the right hip M25. 551 Referring MD Osman Chacko MD Subjective Subjective Patient is a 78 year old male with R hip pain and radiating symptoms into thigh since 06/30. Pt unable to identify mechanism of injury. PT reports 3-4 weeks before pain started he was moving tires and felt a small pinch but pain started about a month later. Did have instance when he bent down and had increased R glute and groin pain, went to ED X-ray showed no concerns with R hip replacement. After ED visit, pt had increased pain and significant bruising in medial right thigh. Pain continues to be very high especially with movement. Denies any numbness or tingling in LE. Pain characteristics: sharp pain with movement, in R groin and R posterior glute Aggravating factors: increased pain with sit to stand, sleeping on L side, walking Easing Factors: standing still improves symptoms. Tylenol helps decrease pain, muscle relaxers do no help. Prior level of function: unlimited and independent with all ADLs and IADLs Current limitations: transfers ambulation, stair and curb navigation. Red flags: denies hx of cancer , recent infection, numbness/ tingling, bowel/bladder changes Imaging: X-ray shows R hip replacement is in place no evidence of loosening. 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 Preferred Name [facility] Precautions Treatment Precautions/Contraindications 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 Weight Bearing Status Full Weight Bearing Therapy Limitations/Systems Review Not Limited Objective Other/Pertinent Objective Hip range of motion (degrees): Flexion: ~90 degrees bilaterally with increased pain on R External rotation: min loss, no reproduction of symptoms Internal rotation: moderate loss, no reproduction of symptoms Manual muscle testing: Hip flexion: 5/5 L , 3+/5 R increased pain Hip abduction: 5/5 L , 3/5 R tested in supine moderate reproduction of symptoms Hip adduction: 5/5 L , 3/5 R significant reproduction of symptoms Hip extension: deferred Knee extension: 5/5 L , 5/5 R Knee flexion: 5/5 L , 5/5 R Ankle DF: 5/5 L , 5/5 R Ankle PF: 5/5 L , 5/5 R Palpation, pt is extremely tenderness to palpation along medial thigh, with increased edema, tolerates only light pressure Observation, pt demonstrates significant bruising along medial thigh Assessment Assessment/Impression Patient is a 78 year old with complaints of R hip pain with onset in past 3 weeks, pt identifies no specific mechanism of injury although did worsen with bending down to pick object off floor. Patient demonstrates impaired R hip range of motion, decreased strength, and increased pain and bruising consistent with possible adductor muscle injury. The impairments impact the patients transfers, ambulation , curb and stair navigation and participation in ADLs and IADLs including work related responsibilities. No treatment provided today due to high intensity of pain and new onset bruising in thigh. Patient referred back to MD for further medical examination. Patient will benefit from skilled physical therapy to address the impairments and activity limitations listed above with collaboration with medical team. Primary Functional Limitations transfers, ambulation, curb and stair navigation and participation in ADLs and IADLs including work related responsibilities. Plan of Care Rehabilitation Potential Good Physical Therapy Goals Short term goals ( 6 weeks ) 1. Patient will tolerate walking >15 minutes with no increase in pain order to complete ADLs 2. Patient will report <X6/10 pain at worst in order to demonstrate decreased pain and disability related to symptoms 3. Patient will demonstrate independence with HEP in order to manage symptoms independently at home correction goals (12 weeks ) 1. Patient will demonstrate MMT of 4/5 in hip and LE in order to demonstrate improved tolerance with lifting, carrying groceries. 2. 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 3. Patient will tolerate lifting 20 pounds with no increase in pain in order to complete work related responsibilities 4. Patient will report <3/10 pain at worst in order to demonstrate decreased pain and disability related to symptoms. 5. Patient will ascend/descend 1 flight of stairs reciprocally with no increase in pain in order to safely navigate home. Coordination/Communication With Referral Source Treatment Plan/Direct Interventions Electrical Stimulation,Gait Training,Joint Mobilization, Manual Therapy,Neuromuscular Re-ed,Self-Care/Home Management,Therapeutic Activities,Therapeutic Exercises Frequency/Duration 1x/week for up to 12 weeks Patient Will Be Discharged From Therapy Completion of LTG(s),Skills Plateau,Independent w/HEP Evaluation Billing Untimed Code Treatment Minutes 30 Complexity Low Certification Information Initial Certification Date 07/18/23 Ending Certification Date 10/15/23 Provider Signature Shows Agreement With POC & Medical Necessity Physician Signature & Date Requested Please Sign/Date Here Physician Comment/Change : Physician NPI Number #
== END 2023-10-03 17:04 | disposition home or self-care (01) ==
PROVIDERS: PCP Family Medicine; Visit Provider Orthopaedic Surgery
DX: M54.10 Radiculopathy, site unspecified (principal); M25.551 Pain in right hip; R10.31 Right lower quadrant pain; Z51.89 Encounter for other specified aftercare
CPT/HCPCS: 97110; 97140; 97161

== ENCOUNTER 2024-04-16 18:15 | Emergency (ER) | payer MEDICARE, SELFPAY ==
[2024-04-16 18:32] VITALS: BP 166/100; PULSE 72; RESP 16; TEMP 37.1; O2SAT 96; BMI 41.0
--- NOTE | 2024-04-16 19:20 | ED_ITS ---
HPI - General Adult General Chief complaint: Lower Extremity Swelling Stated complaint: swelling on right hand Time Seen by Provider: 04/16/24 18:21 History of Present Illness HPI narrative: This 79-year-old male comes in with pain and swelling with warmth and redness in his right hand. He does not report any specific injury event. His symptoms have been present for the past 2 weeks. He did go to urgent care and was prescribed clindamycin for an infection. He took the medicine and did not have much improvement. He states that he does have a cat at home and may have been scratched or injured by the CT. He does not report any other injury event or circumstances to explain his symptoms. Related Data Home Medications ?Medication ?Instructions ?Recorded ?Confirmed CPAP Machine Not Applicable 09/04/22 04/04/24 aspirin 81 mg tablet,delayed 81 mg PO DAILY 09/04/22 04/04/24 release loratadine 10 mg tablet 10 mg PO DAILY 09/04/22 04/04/24 multivitamin (Multiple Vitamins 1 tab PO QAM 09/04/22 04/04/24 tablet) omega-3 fatty acids 1,000 mg 1,000 mg PO DAILY 09/04/22 04/04/24 capsule Previous Rx's ?Medication ?Instructions ?Recorded amlodipine 5 mg tablet 5 mg PO DAILY #90 tabs 08/20/23 atorvastatin 10 mg tablet 10 mg PO QPM #90 tabs 08/20/23 fluticasone propionate 50 1 spray intranasal DAILY #16 grams 08/20/23 mcg/actuation nasal spray,suspension losartan 100 mg tablet 100 mg PO DAILY #90 tabs 08/20/23 metoprolol succinate 25 mg 25 mg PO DAILY #90 tabs 08/20/23 tablet,extended release 24 hr omeprazole 20 mg capsule,delayed 20 mg PO BID #180 caps 08/20/23 release potassium chloride 10 mEq 10 meq PO DAILY #90 caps 08/20/23 capsule,extended release triamterene 37.5 1 cap PO DAILY #90 caps 08/20/23 mg-hydrochlorothiazide 25 mg capsule Allergies Allergy/AdvReac Type Severity Reaction Status Date / Time oxycodone Allergy Mild Gastrointestinal Verified 04/16/24 18:32 Upset silver nitrate Allergy Mild Rash Verified 04/16/24 18:32 Review of Systems Status of ROS: Reports: 10 or more systems reviewed and unremarkable except as noted in History and below Narrative: Constitutional: No fevers, no weight gain or loss. Eyes: No discharge. No vision changes. HENT: No congestion, no sore throat, no ear pain. Cardiovascular: No chest pain, no palpitations. Respiratory: No shortness of breath, no wheezes, no cough. Gastrointestinal: No abdominal pain, no vomiting, no diarrhea. Genitourinary: No dysuria, no hematuria. Musculoskeletal: Normal range of motion. Right hand is swollen to almost twice normal size. There is increased warmth and erythema. No distinct pain when moving his wrist joint and the joints of his fingers. Skin: No rashes, no pruritis. Neurological: No dizziness, weakness, sensory change, speech change. Endo/Heme/Allergies: No bruising or bleeding. No polydipsia. Pysch: no suicidality, no anxiety, no insomnia. All other systems reviewed and are negative. [facility] Medical History Bacterial lobar pneumonia ?J15.9 - Unspecified bacterial pneumonia (ICD-10) Tobacco use (01/09/12) ?Z72.0 - Tobacco use (ICD-10) Renal mass (05/17/13) ?N28.89 - Other specified disorders of kidney and ureter (ICD-10) Meningioma ?D32.9 - Benign neoplasm of meninges, unspecified (ICD-10) Kidney calculus (01/09/12) ?N20.0 - Calculus of kidney (ICD-10) Surgical History Status post total hip replacement, right ?Z96.641 - Presence of right artificial hip joint (ICD-10) S/P eye surgery ?Z98.890 - Other specified postprocedural states (ICD-10) Status post arthroscopic knee surgery ?Z98.890 - Other specified postprocedural states (ICD-10) S/P craniotomy ?Z98.890 - Other specified postprocedural states (ICD-10) Status post transurethral resection of prostate (01/09/12) ?Z90.79 - Acquired absence of other genital organ(s) (ICD-10) History of umbilical hernia repair (01/09/12) ?Z98.890 - Other specified postprocedural states (ICD-10) ?Z87.19 - Personal history of other diseases of the digestive system (ICD-10) History of tonsillectomy (01/09/12) ?Z90.89 - Acquired absence of other organs (ICD-10) History of spinal surgery (01/09/12) ?Z98.890 - Other specified postprocedural states (ICD-10) History of shoulder surgery (01/09/12) ?Z98.890 - Other specified postprocedural states (ICD-10) History of cholecystectomy (01/09/12) ?Z90.49 - Acquired absence of other specified parts of digestive tract (ICD- 10) History of appendectomy ?Z90.49 - Acquired absence of other specified parts of digestive tract (ICD- 10) Social History What is your current living situation?: I presently have a place to live In the past 12 months, utilities in danger of being shut off: no In past 12 months, lack of transportation kept you from medical appts, meetings, work, or getting things needed for daily living: no In the past 12 mos, have been you worried that your food would run out before you had money to buy more?: never true In the past 12 mos, the food you bought just didn't last and you didn't have money to buy more?: never true Highest level of school completed/degree received: Associate degree: occupational, technical, vocational program Smoking Status: Former smoker What tobacco products do you use: cigarettes Smoking quit date/years: >15 years ago Do you use any of these nicotine containing products: None Second hand tobacco smoke exposure: No How often do you have a drink containing alcohol: never How often do you have six or more drinks on one occasion: Never AUDIT-C Alcohol total score: 0 Non-prescribed substance use: denies use Caffeine: No How often does anyone, including family, friends and others, physically hurt you : never How often does anyone, including family, friends and others, insult or talk down to you: never How often does anyone, including family, friends and others, threaten you with harm: never How often does anyone, including family, friends and others, scream or curse at you: never Little interest or pleasure in doing things: not at all Feeling down, depressed, or hopeless: not at all service: No Exam Const: Vital Signs, click to edit/add: Vital Signs - 24 hr 04/16/24 18:32 Temperature 98.8 F Pulse Rate [Pulse Oximeter] 72 Respiratory Rate 16 Blood Pressure [Ri ght Upper Arm] 166/100 H Pulse Oximetry 96 Oxygen Delivery Me thod Room Air Course Vital Signs Vital signs: Initial Vital Signs Temperature 98.8 F 04/16/24 18:32 Temperature Source Temporal Artery Scan 04/16/24 18:32 Pulse Rate 72 04/16/24 18:32 Respiratory Rate 16 04/16/24 18:32 Blood Pressure 166/100 H 04/16/24 18:32 Blood Pressure Mean 122 H 04/16/24 18:32 Blood Pressure Position Sitting 04/16/24 18:32 Pulse Oximetry 96 04/16/24 18:32 Oxygen Delivery Method Room Air 04/16/24 18:32 Vital Signs Temperature 98.8 F 04/16/24 18:32 Pulse Rate 72 04/16/24 18:32 Respiratory Rate 16 04/16/24 18:32 Blood Pressure 166/100 H 04/16/24 18:32 Pulse Oximetry 96 04/16/24 18:32 Oxygen Delivery Method Room Air 04/16/24 18:32 Temperature 98.8 F 04/16/24 18:32 Pulse Rate 72 04/16/24 18:32 Respiratory Rate 16 04/16/24 18:32 Blood Pressure 166/100 H 04/16/24 18:32 Pulse Oximetry 96 04/16/24 18:32 Oxygen Delivery Method Room Air 04/16/24 18:32 Medical Decision Making MDM Narrative Medical decision making narrative: This patient has pain and swelling which in his right hand that is typical of a infection that could be related to a cat bite. He did take a course of clindamycin without much relief or improvement. He has not had any fevers and the redness has not spread up into his forearm. There is no palpable abscess or drainable abscess identified. I did provide prescription for Augmentin. He also received a few tablets of [place]. These were provided from the [employer] machine. Discharge Plan Discharge Clinical Impression: Cellulitis Patient Disposition: Home, Self-Care Condition: Stable Additional Instructions: Take medication as prescribed. Follow up with MD or return if symptoms are persistent or worsening. Prescriptions: No Action CPAP Machine Not Applicable loratadine 10 mg tablet 10 mg PO DAILY aspirin 81 mg tablet,delayed release (DR/EC) 81 mg PO DAILY omega-3 fatty acids 1,000 mg capsule 1,000 mg PO DAILY multivitamin [Multiple Vitamins] Tablet 1 tab PO QAM amlodipine 5 mg tablet 5 mg PO DAILY Qty: 90 3RF Rx Instructions: TAKE ONE TABLET BY MOUTH ONE TIME DAILY atorvastatin 10 mg tablet 10 mg PO QPM Qty: 90 3RF losartan 100 mg tablet 100 mg PO DAILY Qty: 90 3RF metoprolol succinate 25 mg tablet extended release 24 hr 25 mg PO DAILY Qty: 90 3RF potassium chloride 10 mEq capsule, extended release 10 meq PO DAILY Qty: 90 3RF omeprazole 20 mg capsule,delayed release(DR/EC) 20 mg PO BID Qty: 180 3RF triamterene-hydrochlorothiazid 37.5-25 mg capsule 1 cap PO DAILY Qty: 90 3RF fluticasone propionate 50 mcg/actuation spray,suspension 1 spray intranasal DAILY Qty: 16 11RF Follow Up/Referrals: Osman Byrne MD [Primary Care Provider] - Stand Alone Forms: [employer] Info Instructions
[2024-04-16 20:01] VITALS: BP 166/100; PULSE 72; RESP 16; TEMP 37.1
== END 2024-04-16 20:01 | disposition home or self-care (01) ==
PROVIDERS: Emergency Provider Emergency Medicine Emergency Medical Services; PCP Family Medicine
DX: L03.113 Cellulitis of right upper limb (principal)
CPT/HCPCS: 99283; 99284

== ENCOUNTER 2024-07-10 17:44 | Emergency (ER) | payer MEDICARE, SELFPAY ==
[2024-07-10 17:58] VITALS: BP 195/75; PULSE 56; RESP 16; TEMP 36.8; O2SAT 94; BMI 40.4
--- NOTE | 2024-07-10 18:19 | ED_ITS ---
HPI - General Adult General Chief complaint: Skin/Abscess/Foreign Body Stated complaint: Painful lump R arm Time Seen by Provider: 07/10/24 18:04 Source: patient Mode of arrival: ambulatory Limitations: no limitations History of Present Illness HPI narrative: 79-year-old male presenting today with a lesion on his arm that has been there for a very long time?. He presents today because it was hurting him last ni ght. That has not been changing or growing in size. He has no other concerns today. Related Data Home Medications ?Medication ?Instructions ?Recorded ?Confirmed CPAP Machine Not Applicable 09/04/22 04/04/24 aspirin 81 mg tablet,delayed 81 mg PO DAILY 09/04/22 07/10/24 release loratadine 10 mg tablet 10 mg PO DAILY 09/04/22 07/10/24 multivitamin (Multiple Vitamins 1 tab PO QAM 09/04/22 07/10/24 tablet) omega-3 fatty acids 1,000 mg 1,000 mg PO DAILY 09/04/22 07/10/24 capsule Previous Rx's ?Medication ?Instructions ?Recorded amlodipine 5 mg tablet 5 mg PO DAILY #90 tabs 08/20/23 atorvastatin 10 mg tablet 10 mg PO QPM #90 tabs 08/20/23 fluticasone propionate 50 1 spray intranasal DAILY #16 grams 08/20/23 mcg/actuation nasal spray,suspension losartan 100 mg tablet 100 mg PO DAILY #90 tabs 08/20/23 metoprolol succinate 25 mg 25 mg PO DAILY #90 tabs 08/20/23 tablet,extended release 24 hr omeprazole 20 mg capsule,delayed 20 mg PO BID #180 caps 08/20/23 release potassium chloride 10 mEq 10 meq PO DAILY #90 caps 08/20/23 capsule,extended release triamterene 37.5 1 cap PO DAILY #90 caps 08/20/23 mg-hydrochlorothiazide 25 mg capsule Allergies Allergy/AdvReac Type Severity Reaction Status Date / Time oxycodone Allergy Mild Gastrointestinal Verified 07/10/24 17:57 Upset silver nitrate Allergy Mild Rash Verified 07/10/24 17:57 Review of Systems Status of ROS: Reports: 6 or more systems reviewed and unremarkable except as noted in History and below [facility] Medical History Bacterial lobar pneumonia ?J15.9 - Unspecified bacterial pneumonia (ICD-10) Tobacco use (01/09/12) ?Z72.0 - Tobacco use (ICD-10) Renal mass (05/17/13) ?N28.89 - Other specified disorders of kidney and ureter (ICD-10) Meningioma ?D32.9 - Benign neoplasm of meninges, unspecified (ICD-10) Kidney calculus (01/09/12) ?N20.0 - Calculus of kidney (ICD-10) Surgical History Status post total hip replacement, right ?Z96.641 - Presence of right artificial hip joint (ICD-10) S/P eye surgery ?Z98.890 - Other specified postprocedural states (ICD-10) Status post arthroscopic knee surgery ?Z98.890 - Other specified postprocedural states (ICD-10) S/P craniotomy ?Z98.890 - Other specified postprocedural states (ICD-10) Status post transurethral resection of prostate (01/09/12) ?Z90.79 - Acquired absence of other genital organ(s) (ICD-10) History of umbilical hernia repair (01/09/12) ?Z98.890 - Other specified postprocedural states (ICD-10) ?Z87.19 - Personal history of other diseases of the digestive system (ICD-10) History of tonsillectomy (01/09/12) ?Z90.89 - Acquired absence of other organs (ICD-10) History of spinal surgery (01/09/12) ?Z98.890 - Other specified postprocedural states (ICD-10) History of shoulder surgery (01/09/12) ?Z98.890 - Other specified postprocedural states (ICD-10) History of cholecystectomy (01/09/12) ?Z90.49 - Acquired absence of other specified parts of digestive tract (ICD- 10) History of appendectomy ?Z90.49 - Acquired absence of other specified parts of digestive tract (ICD- 10) Social History What is your current living situation?: I presently have a place to live In the past 12 months, utilities in danger of being shut off: no In past 12 months, lack of transportation kept you from medical appts, meetings, work, or getting things needed for daily living: no In the past 12 mos, have been you worried that your food would run out before you had money to buy more?: never true In the past 12 mos, the food you bought just didn't last and you didn't have money to buy more?: never true Highest level of school completed/degree received: Associate degree: o ccupational, technical, vocational program Smoking Status: Former smoker What tobacco products do you use: cigarettes Smoking quit date/years: >15 years ago Do you use any of these nicotine containing products: None Second hand tobacco smoke exposure: No How often do you have a drink containing alcohol: never How often do you have six or more drinks on one occasion: Never AUDIT-C Alcohol total score: 0 Non-prescribed substance use: denies use Caffeine: No How often does anyone, including family, friends and others, physically hurt you : never How often does anyone, including family, friends and others, insult or talk down to you: never How often does anyone, including family, friends and others, threaten you with harm: never How often does anyone, including family, friends and others, scream or curse at you: never Little interest or pleasure in doing things: not at all Feeling down, depressed, or hopeless: not at all service: No Exam Narrative: Exam Narrative: Well-nourished well-developed patient in no acute distress. Alert and oriented. Answers questions appropriately. Mood and affect are appropriate. Thoughts are goal oriented and rational. No tangential or magical thinking noted. Patient speaks in full sentences without needing to catch his breath. Extremities: On the posterior forearm just distal to the elbow patient has a small lesion that is soft with a purplish hue. Consistent with a varicose vein. Does not appear to be an abscess, does not appear to be a lipoma. There are no overlying skin changes to suggest infection. Const: Vital Signs, click to edit/add: Vital Signs - 24 hr 07/10/24 17:58 Temperature 98.3 F Pulse Rate [Pulse Oximeter] 56 L Respiratory Rate 16 Blood Pressure [Ri ght Upper Arm] 195/75 H Pulse Oximetry 94 Oxygen Delivery Me thod Room Air Course Vital Signs Vital signs: Initial Vital Signs Temperature 98.3 F 07/10/24 17:58 Temperature Source Temporal Artery Scan 07/10/24 17:58 Pulse Rate 56 L 07/10/24 17:58 Pulse Rhythm Regular 07/10/24 17:58 Respiratory Rate 16 07/10/24 17:58 Blood Pressure 195/75 H 07/10/24 17:58 Blood Pressure Mean 115 H 07/10/24 17:58 Blood Pressure Position Sitting 07/10/24 17:58 Pulse Oximetry 94 07/10/24 17:58 Oxygen Delivery Method Room Air 07/10/24 17:58 Vital Signs Temperature 98.3 F 07/10/24 17:58 Pulse Rate 56 L 07/10/24 17:58 Respiratory Rate 16 07/10/24 17:58 Blood Pressure 195/75 H 07/10/24 17:58 Pulse Oximetry 94 07/10/24 17:58 Oxygen Delivery Method Room Air 07/10/24 17:58 Temperature 98.3 F 07/10/24 17:58 Pulse Rate 56 L 07/10/24 17:58 Respiratory Rate 16 07/10/24 17:58 Blood Pressure 195/75 H 07/10/24 17:58 Pulse Oximetry 94 07/10/24 17:58 Oxygen Delivery Method Room Air 07/10/24 17:58 Medical Decision Making MDM Narrative Medical decision making narrative: 79-year-old male with lesion on his arm. Differential diagnoses does include a varicose vein. At this time recommend he follow up with primary care provider and we discussed symptomatic treatment for discomfort. Discharge Plan Discharge Clinical Impression: Skin lesion Patient Disposition: Home, Self-Care Condition: Stable Additional Instructions: Recommend you follow-up with your primary care provider to discuss removal of the lesion on your arm. You may need a general surgeon. Okay to use ice to the area if it is hurting calms and apply ice directly to skin and do not use for more than 20 minutes at a time. Prescriptions: No Action CPAP Machine Not Applicable loratadine 10 mg tablet 10 mg PO DAILY aspirin 81 mg tablet,delayed release (DR/EC) 81 mg PO DAILY omega-3 fatty acids 1,000 mg capsule 1,000 mg PO DAILY multivitamin [Multiple Vitamins] Tablet 1 tab PO QAM amlodipine 5 mg tablet 5 mg PO DAILY Qty: 90 3RF Rx Instructions: TAKE ONE TABLET BY MOUTH ONE TIME DAILY atorvastatin 10 mg tablet 10 mg PO QPM Qty: 90 3RF losartan 100 mg tablet 100 mg PO DAILY Qty: 90 3RF metoprolol succinate 25 mg tablet extended release 24 hr 25 mg PO DAILY Qty: 90 3RF potassium chloride 10 mEq capsule, extended release 10 meq PO DAILY Qty: 90 3RF omeprazole 20 mg capsule,delayed release(DR/EC) 20 mg PO BID Qty: 180 3RF triamterene-hydrochlorothiazid 37.5-25 mg capsule 1 cap PO DAILY Qty: 90 3RF fluticasone propionate 50 mcg/actuation spray,suspension 1 spray intranasal DAILY Qty: 16 11RF Follow Up/Referrals: Osman Byrne MD [Primary Care Provider] - Stand Alone Forms: [employer] Info Instructions
== END 2024-07-10 18:28 | disposition home or self-care (01) ==
LOC: ED 18:22
PROVIDERS: Emergency Provider Family Medicine; PCP Family Medicine
DX: L98.9 Disorder of the skin and subcutaneous tissue, unspecified (principal)
CPT/HCPCS: 99282; 99283

== ENCOUNTER 2024-09-15 09:33 | Outpatient (CLI) | payer MEDICARE, SELFPAY | END 2024-09-15 09:34 | disposition home or self-care (01) | PROVIDERS: PCP Family Medicine; Visit Provider Family Medicine | DX: I10 Essential (primary) hypertension (principal); E78.5 Hyperlipidemia, unspecified; E11.9 Type 2 diabetes mellitus without complications | CPT/HCPCS: 80048; 80061 ==

== ENCOUNTER 2025-06-27 18:52 | Outpatient (CLI) | payer MEDICARE, SELFPAY | END 2025-06-27 18:53 | disposition home or self-care (01) | LOC: AMB 06-28 11:22 | PROVIDERS: PCP Family Medicine; Visit Provider Emergency Medicine Emergency Medical Services | DX: S79.912A Unspecified injury of left hip, initial encounter (principal); W01.0XXA Fall on same level from slipping, tripping and stumbling without subsequent striking against object, initial encounter; Y92.008 Other place in unspecified non-institutional (private) residence as the place of occurrence of the external cause | CPT/HCPCS: A0425; A0427 ==

== ENCOUNTER 2025-06-27 19:18 | Inpatient (IN) | payer MEDICARE, SELFPAY ==
[2025-06-27] VITALS (11 sets, daily range): BP systolic 153–205; BP diastolic 83–86; PULSE 62–72; RESP 16–20; TEMP 36.8–37.1; O2SAT 89–93; BMI 40.4; BMI 42.1; BMI 42.2
--- OUTSIDE RECORDS SUMMARY | 2025-06-27 19:20 | XMS_ITS | Clinical Summary ---
Author Organization [employer] [facility] Address [address] [place] [id number] Care Team Providers Care Switchboard Clerk Name Role Phone Mamadou Arteaga MD Unavailable Osman Byrne MD Primary Care Provider Allergies Active Allergy Reactions Criticality Noted Date Comments Aspirin GI Upset Low 03/18/2007 regular uncoated aspirin causes gi upset Silver Nitrate Rash 03/18/2007 Medications ASPIRIN 81 MG TAB, DELAYED RELEASE take 1 tablet (81 mg) by oral route once daily 0 7 Active multivitamin (MVI) tablet Take 1 tablet by mouth once daily. 0 0 Active omega-3 fatty acids-vitamin E (FISH OIL) 1,000 mg Cap Take 1 capsule by mouth once daily. 1 Active triamterene-hydro chlorothiazide, 37.5-25 mg, (DYAZIDE) 37.5-25 mg capsuleIndication s:Unspecified essential hypertension Take 1 capsule by mouth every morning. 90 capsule 3 1 Active fluticasone (50 mcg per actuation) nasal solution (FLONASE) Inhale 1 [place] into both nostrils 2 times daily. 1 Bottle 0 5 Active amLODIPine (NORVASC) 5 mg tablet Take 5 mg by mouth once daily. 2 7 Active losartan (COZAAR) 50 mg tablet Take 50 mg by mouth once daily. 3 7 Active potassium chloride (MICRO-K) 10 mEq Controlled-releas e capsule Take 10 capsules by mouth once daily. 2 7 Active atorvastatin (LIPITOR) 10 mg tabletIndications :Hyperlipidemia with target LDL less than 130 Take 1 tablet by mouth once daily. 90 tablet 3 9 Active omeprazole (PRILOSEC) 20 mg Delayed-Release capsule Take 20 mg by mouth 2 times daily before meals. Active loratadine (CLARITIN) 10 mg tablet Take 10 mg by mouth once daily. Active metoprolol succinate (TOPROL XL) 25 mg Sustained-Release tablet Take 25 mg by mouth once daily. 4 Active CPAPIndications:O bstructive sleep apnea CPAP machine for home use at pressure 8 cm/H2O, nasal mask x1/3month with nasal pillows x2/3mo Heat humidifier x 1/5 year, Humidifier chamber x 1/6mo, standard tubing x 1/3mo, Headgear x 1/6mo, Chin strap x 1/6 months, Filters: Disposable x 2pk/1mo & Reusable x 1pk/6mo 1 Each 11 4 Active Active Problems Problem Noted Date Diagnosed Date Ureterolithiasis 04/06/2020 Hydronephrosis of right kidney 04/06/2020 PANCHO 07/21/2011 AHI-60 07/28/2011 Severe obesity (BMI 35.0-39.9) with comorbidity 02/01/2008 Personal history of colonic polyps Unspecified essential hypertension Impaired fasting glucose Osteoarthrosis, unspecified whether generalized or localized, lower leg Overview (02/01/2008): severe Esophageal reflux Hyperlipidemia LDL goal < 130 Resolved Problems Problem Noted Date Diagnosed Date Resolved Date PANCHO 12/31/2011 AHI-49 01/01/2012 012 Skin tags 02/16/2010 07/16/2011 Mixed hyperlipidemia 010 PANCHO (obstructive sleep apnea) 07/29/2011 Immunizations Immunization Administration Dates Next Due AMB Influenza, IIV3 (Age >=3 years)(Flu Clinic [facility]) 08/10/2010 COVID-19 vaccine (SurgeryEdu 30mcg/0.3mL) P F, MDV 01/16/2021,12/26/2020 Influenza, IIV3 (Age >=3 years) 07/16/2011 Pneumococcal Poly,23-Valent (Pneumovax) 02/17/20 10 Pneumococcal conj 13-Valent (Prevnar 13) 014 Td (Age >=7 Years) 07/10/2004,03/13/1998 Tdap 04/16/2022,07/21/2012 Zoster (Shingrix-RZV, recombinant) 02/15/2022, Zoster (Zostavax-ZVL, live) 01/30/2007 Family History Medical History Relation Name Comments Heart Disease Brother 5 AR Thyroid Disease Daughter 3 Other Daughter 4 sleep apnea Cancer Mother liver Relation Name Status Comments Brother 1 (Age 60) 2008 Brother 2 Alive Brother 3 Alive Brother 4 Alive Brother 5 Daughter 1 Alive Daughter 2 Alive Daughter 3 Daughter 4 Father Alive Mother (Age 54) Sister 1 (Age 6) Sister 2 Alive Sister 3 Alive Sister 4 Alive Sister 5 Alive Social History Tobacco Use Types Packs/Day Years Used Date Smoking Tobacco: Former Cigarettes Q uit: 10/13/1977 Smokeless Tobacco: Never Tobacco Cessation:Counseling Given: Yes Alcohol Use Standard Drinks/Week Comments No 0 (1 standard drink = 0.6 oz pur e alcohol) 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) Social Connections Answer Date Recorded Frequency of Communication with Friends and Fami ly Not on file 10/13/2021 Financial Resource Strain Answer Date R ecorded Difficulty of Paying Living Expenses Not on file 10/13/2021 Difficulty of Paying Living Expenses Not on file 10/13/2021 Sex and Gender Information Value Date Recorded Sex Assigned at Not on file Legal Sex Male 6:18 AM [employer] Gender Identity Not on file Sexual Orientation Not on file Occupation Industry Job Start Date Job End Date Not on file Not on file Not on file Not on file Obstetrics History Last Filed Vital Signs Vital Sign Reading Time Taken Comments Blood Pressure 174/72 03/10/2024 9:19 AM CDT Pulse 95 03/10/2024 9:19 AM CDT Temperature 36.8 C (98.2 F) 06/13/2022 1:04 PM CDT Respiratory Rate 16 04/07/2020 4:00 PM CDT Oxygen Saturation 97% 03/10/2024 9:19 AM CDT Inhaled Oxygen Concentration - - Weight 118.6 kg (261 lb 6.4 oz) 03/10/2024 9:19 AM CDT Height 170.2 cm (5' 7) 12/03/2023 9:25 AM [employer] Body Mass Index 40.94 12/03/2023 9:25 AM [employer] Plan of Treatment Health Maintenance Due Date Last Done Comments Depression screening for age 12+ 1957 Medicare Wellness for age 65+ 07/16/2012 07/16/2011 RSV vaccine for adults or (1 - 1-dose 75+ series) 01/18/2019 BMI (ht and wt on same day) for age 18+ 12/03/2024 12/03/2023 COVID-19 vaccine series ( season) 2025 07/30/2024, 08/08/2023, 08/09/2022, Additional history exists Influenza Vaccine (#1) 2025 07/16/2011, 2009 Tetanus booster 04/16/2032 04/16/2022, 06/2012, 07/10/2004, Additional history exists Pneumococcal series for age 50+ Completed 08/30/2014, 02/16/2010 Zoster (shingles) series for age 50+ Completed 02/15/2022, 11/29/2021, 01/30/2007 Hepatitis B series for 19+ Aged Out N o longer eligible based on patient's age to complete this topic Insurance [facility] MEDICARE ADVANTAGE MR [facility] MEDICARE ADVANTAGE MR Advance Directives * Full Code (Latest Code Status on File) Date Activated Date Inactivated Comments 04/06/2020 1:01 PM 04/07/2020 8:17 PM Care Teams Switchboard Clerk Relationship Specialty Start Date End Date Osman Byrne MD PCP - General Family Practice 08/21/15 Mamadou Arteaga MD Internal Medicine Sleep Medicine 12/09/11
--- NOTE | 2025-06-27 19:35 | CRLHL7_ITS ---
For Patients: As a result of the Cures Act, medical imaging exams and procedure reports are released immediately into your electronic medical record. You may view this report before your referring provider. If you have questions, please contact your health care provider. INDICATION: Fall, pelvic hip injury, pain TECHNIQUE: Pelvis radiograph, Hip radiograph 3 views left COMPARISON: None FINDINGS: Bone: There is an intertrochanteric fracture of the left proximal femur present. Severe degenerative disc disease is present at L4-5 and L5-S1. Moderate diffuse osteopenia is present. Joint: A right bipolar hip arthroplasty is partially visualized. The visualized sacroiliac joints are unremarkable in appearance. The pubic symphysis is normal in appearance. Soft tissue: Unremarkable. No radiopaque foreign bodies are seen. IMPRESSION: 1. There is an intertrochanteric fracture of the left proximal femur present. Dictated by Tony Segovia MD @ 06/27/2025 8:46:38 PM Dictated by: Tony Segovia MD @ 06/27/2025 20:46:44 (Electronically Signed)
--- NOTE | 2025-06-27 19:39 | ED.GENADULT ---
HPI - General Adult General Chief complaint: Hip Injury/Pain Stated complaint: hip injury Time Seen by Provider: 06/27/25 19:30 History of Present Illness HPI narrative: This 80-year-old male comes in with an injury to his left hip. He states that he has had his right hip replaced but his left hip has not been operated on. He fell onto his left hip and now is unable to get up and ambulate. He does not report any other injury. He is unable to lift his left leg off the bed. He states that he takes a baby aspirin daily and last ate at noon about 7 hours ago. Related Data Home Medications ?Medication ?Instructions ?Recorded ?Confirmed CPAP Machine Not Applicable 09/04/22 12/27/24 aspirin 81 mg tablet,delayed 81 mg PO DAILY 09/04/22 06/27/25 release loratadine 10 mg tablet 10 mg PO DAILY 09/04/22 06/27/25 multivitamin (Multiple Vitamins 1 tab PO QAM 09/04/22 06/27/25 tablet) omega-3 fatty acids 1,000 mg 1,000 mg PO DAILY 09/04/22 06/27/25 capsule Previous Rx's ?Medication ?Instructions ?Recorded amlodipine 5 mg tablet 5 mg PO DAILY #90 tabs 09/15/24 atorvastatin 10 mg tablet 10 mg PO QPM #90 tabs 09/15/24 fluticasone propionate 50 1 spray intranasal DAILY #16 grams 09/15/24 mcg/actuation nasal spray,suspension losartan 100 mg tablet 100 mg PO DAILY #90 tabs 09/15/24 metoprolol succinate 25 mg 25 mg PO DAILY #90 tabs 09/15/24 tablet,extended release 24 hr omeprazole 20 mg capsule,delayed 20 mg PO BID #180 caps 09/15/24 release potassium chloride 10 mEq 10 meq PO DAILY #90 caps 09/15/24 capsule,extended release triamterene 37.5 1 cap PO DAILY #90 caps 09/15/24 mg-hydrochlorothiazide 25 mg capsule glipizide 10 mg tablet 10 mg PO QDAY #90 tabs 09/16/24 glipizide 5 mg tablet, extended 5 mg PO QDAY #90 tabs 12/27/24 release 24 hr Allergies Allergy/AdvReac Type Severity Reaction Status Date / Time oxycodone Allergy Mild Gastrointestinal Verified 12/27/24 13:40 Upset silver nitrate Allergy Mild Rash Verified 12/27/24 13:40 Review of Systems Status of ROS: Reports: 10 or more systems reviewed and unremarkable except as noted in History and below Narrative: Constitutional: No fevers, no weight gain or loss. Eyes: No discharge. No vision changes. HENT: No congestion, no sore throat, no ear pain. Cardiovascular: No chest pain, no palpitations. Respiratory: No shortness of breath, no wheezes, no cough. Gastrointestinal: No abdominal pain, no vomiting, no diarrhea. Genitourinary: No dysuria, no hematuria. Musculoskeletal: Left hip injury as described above. Skin: No rashes, no pruritis. Neurological: No dizziness, weakness, sensory change, speech change. Endo/Heme/Allergies: No bruising or bleeding. No polydipsia. Pysch: no suicidality, no anxiety, no insomnia. All other systems reviewed and are negative. [facility] Medical History Bacterial lobar pneumonia ?J15.9 - Unspecified bacterial pneumonia (ICD-10) Tobacco use (01/09/12) ?Z72.0 - Tobacco use (ICD-10) Renal mass (05/17/13) ?N28.89 - Other specified disorders of kidney and ureter (ICD-10) Meningioma ?D32.9 - Benign neoplasm of meninges, unspecified (ICD-10) Kidney calculus (01/09/12) ?N20.0 - Calculus of kidney (ICD-10) Surgical History Status post total hip replacement, right ?Z96.641 - Presence of right artificial hip joint (ICD-10) S/P eye surgery ?Z98.890 - Other specified postprocedural states (ICD-10) Status post arthroscopic knee surgery ?Z98.890 - Other specified postprocedural states (ICD-10) S/P craniotomy ?Z98.890 - Other specified postprocedural states (ICD-10) Status post transurethral resection of prostate (01/09/12) ?Z90.79 - Acquired absence of other genital organ(s) (ICD-10) History of umbilical hernia repair (01/09/12) ?Z98.890 - Other specified postprocedural states (ICD-10) ?Z87.19 - Personal history of other diseases of the digestive system (ICD-10) History of tonsillectomy (01/09/12) ?Z90.89 - Acquired absence of other organs (ICD-10) History of spinal surgery (01/09/12) ?Z98.890 - Other specified postprocedural states (ICD-10) History of shoulder surgery (01/09/12) ?Z98.890 - Other specified postprocedural states (ICD-10) History of cholecystectomy (01/09/12) ?Z90.49 - Acquired absence of other specified parts of digestive tract (ICD-10) History of appendectomy ?Z90.49 - Acquired absence of other specified parts of digestive tract (ICD-10) Social History What is your current living situation?: I presently have a place to live In the past 12 months, utilities in danger of being shut off: no In past 12 months, lack of transportation kept you from medical appts, meetings, work, or getting things needed for daily living: no In the past 12 mos, have been you worried that your food would run out before you had money to buy more?: never true In the past 12 mos, the food you bought just didn't last and you didn't have money to buy more?: never true Highest level of school completed/degree received: Associate degree: occupational, technical, vocational program Smoking Status: Former smoker What tobacco products do you use: cigarettes Smoking quit date/years: >15 years ago Do you use any of these nicotine containing products: None Second hand tobacco smoke exposure: No How often do you have a drink containing alcohol: never How often do you have six or more drinks on one occasion: Never AUDIT-C Alcohol total score: 0 Non-prescribed substance use: denies use Caffeine: No How often does anyone, including family, friends and others, physically hurt you: never How often does anyone, including family, friends and others, insult or talk down to you: never How often does anyone, including family, friends and others, threaten you with harm: never How often does anyone, including family, friends and others, scream or curse at you: never service: No Exam Narrative: Exam Narrative: Constitutional: Well-developed, well-nourished, no acute distress. HEENT: Normocephalic, atraumatic. Neck: Normal range of motion. Nontender. Supple. Heart: Regular. No murmurs. Normal rate. Intact distal pulses. Lungs: Clear to auscultation. No chest discomfort. No wheezes, rhonchi, or rales. Abdomen: Normal bowel sounds. Nontender. No rebound tenderness. Genitalia: Deferred. Back: No midline tenderness. Normal range of motion. Extremities: Pain in the left hip region. He is unable to lift his leg from the bed and has distinct pain when doing so. More mild pain when log-rolling his left leg. No pain when stressing his pelvis. Skin: Intact. No rash. Warm. No erythema or pallor. Neurologic: No altered sensation. No weakness. Alert and oriented. Psychiatric: No suicidality. No anxiety or depression. No insomnia. Nursing notes and vitals signs are reviewed. Const: Vital Signs, click to edit/add: Vital Signs - 24 hr 06/27/25 19:25 06/27/25 19:42 06/27/25 19:50 Temperature 98.8 F Pulse Rate [Pulse Oximeter] 72 Respiratory Rate 16 Blood Pressure [Ri ght Upper Arm] 170/86 H Pulse Oximetry 90 93 92 Oxygen Delivery Me thod Room Air 06/27/25 20:00 06/27/25 20:21 06/27/25 20:22 Temperature Pulse Rate [Pulse Oximeter] Respiratory Rate Blood Pressure [Ri ght Upper Arm] Pulse Oximetry 89 90 90 Oxygen Delivery Me thod 06/27/25 20:30 06/27/25 20:40 06/27/25 20:43 Temperature Pulse Rate [Pulse Oximeter] Respiratory Rate Blood Pressure [Ri ght Upper Arm] 205/85 H Pulse Oximetry 93 90 Oxygen Delivery Me thod Course Vital Signs Vital signs: Initial Vital Signs Temperature 98.8 F 06/27/25 19:25 Temperature Source Temporal Artery Scan 06/27/25 19:25 Pulse Rate 72 06/27/25 19:25 Respiratory Rate 16 06/27/25 19:25 Blood Pressure 170/86 H 06/27/25 19:25 Blood Pressure Mean 114 H 06/27/25 19:25 Blood Pressure Position Semi-Fowlers 06/27/25 19:25 Pulse Oximetry 90 06/27/25 19:25 Oxygen Delivery Method Room Air 06/27/25 19:25 Vital Signs Temperature 98.8 F 06/27/25 19:25 Pulse Rate 72 06/27/25 19:25 Respiratory Rate 16 06/27/25 19:25 Blood Pressure 170/86 H 06/27/25 19:25 Pulse Oximetry 90 06/27/25 19:25 Oxygen Delivery Method Room Air 06/27/25 19:25 Temperature 98.8 F 06/27/25 19:25 Pulse Rate 72 06/27/25 19:25 Respiratory Rate 16 06/27/25 19:25 Blood Pressure 205/85 H 06/27/25 20:43 Pulse Oximetry 90 06/27/25 20:40 Oxygen Delivery Method Room Air 06/27/25 19:25 Medical Decision Making MDM Narrative Medical decision making narrative: This patient comes in with an injury to his left hip as described above. X-ray images show a fracture through the greater trochanter of the left hip. When remaining still he is in minimal discomfort. I did speak with orthopedic physician's activity assistant information scientist who stated that they would be able to repair this injury tomorrow. I spoke with the hospitalist also who will arrange for admission and preparation for surgery tomorrow. Imaging Data XR L Hip: Radiologist's impression: There is an intertrochanteric fracture of the left proximal femur present. Discharge Plan Discharge Clinical Impression: Hip fracture Patient Disposition: Admitted As Observation Condition: Unchanged
--- NOTE | 2025-06-27 22:14 | CRLHL7_ITS ---
For Patients: As a result of the Century Cures Act, medical imaging exams and procedure reports are released immediately into your electronic medical record. You may view this report before your referring provider. If you have questions, please contact your health care provider. INDICATION: Preoperative study. TECHNIQUE: Chest 1 views. COMPARISON: February 11, 2023. FINDINGS: Cardiovascular and mediastinum: Prominent heart size and vasculature accentuated by low lung volumes. Lungs and pleural spaces: Low lung volumes with interstitial prominence. No sign of infiltrate or mass. No sign of pleural effusion. No pneumothorax. Bones and soft tissues: No significant findings. IMPRESSION: Prominent heart size/vasculature with interstitial prominence accentuated by low lung volumes. No change when compared to prior study. Dictated by Justin Purcell MD @ 06/27/2025 11:08:02 PM (Electronically Signed)
--- NOTE | 2025-06-27 22:34 | P.IMHP_ITS ---
Assessment and Plan Assessment and plan (1) Hip fracture: Problem comment: -from ground level fall -plain film shows intertrochanteric fracture of the left proximal femur -ED provider discussed with Orthopedic surgery, plan for OR 06/28 -NPO after midnight, gentle IVF -pain management as needed -PT/OT postoperatively -SCDs for VTE PPX Status: Acute (2) Diabetes type 2, controlled: Problem comment: -most recent A1c 7.3 -hold glipizide for now -glucose checks and sliding scale ACHS -Metformin intolerance Status: Acute (3) Hypertension: Problem comment: -metoprolol in the morning, hold losartan, amlodipine, triam/HCTZ, ASA Status: Acute (4) Hyperlipidemia: Problem comment: -continue statin Status: Acute (5) PANCHO on CPAP: Problem comment: - will bring CPAP tomorrow -O2 p.r.n. especially while receiving narcotics, oximetry Status: Acute (6) Chronic obstructive pulmonary disease: Problem comment: -encourage pulmonary hygiene postoperatively Status: Acute Total Time Spent Total Time Spent: Today I spent 75 minutes seeing the patient, reviewing Expanse and EPIC notes/diagnostics, discussing the care plan with our care time that includes social work, PT/OT, pharmacy, RT, long term and documenting my impressions and plan in the medical record. Hospitalist- H&P: HPI History of Present Illness Date Seen: 06/27/25 Chief complaint: hip injury Narrative: Neville Stern is a 80 year old male past medical history significant for type 2 diabetes mellitus, hypertension, hyperlipidemia, PANCHO on CPAP, COPD, GERD is admitted to the medical floor from the ED with a left fracture. Patient reports standing near a desk, attempting to take his wallet out of his pocket this evening when he became tangled and fell onto his left side. He was able to roll himself to his right side and eventually pull himself up onto a chair after approximately 20 minutes. Complains of left hip pain. Denies headache or dizziness. Denies chest pain or shortness of breath. No recent fevers. Denies abdominal pain, nausea, vomiting, diarrhea. Quit drinking and smoking approximately 40 years ago. Lives with his in their own home. PCP is Dr. Byrne. With previous surgeries, reports significant nausea as well as 2 episodes of waking up during surgical procedures (including a right hip replacement). No bleeding disorders. Takes aspirin daily (last dose 915 am). Labs, EKG, CXR ordered upon arrival to floor. Echocardiogram 02/05/23: LVEF 55-60%, normal LV size. Mild concentric LVH. No significant valvular abnormalities. Mildly dilated aortic root (4 cm) and ascending aorta (3.7 cm) Review of Systems Narrative: REVIEW OF SYSTEMS: Complete review of systems performed and negative unless otherwise stated in HPI or below. Medical Decision Making Medical Decision Making Code Status: Full code Has patient completed a Health Care Directive: No PFSH PFS Medical History Bacterial lobar pneumonia ?J15.9 - Unspecified bacterial pneumonia (ICD-10) Tobacco use (01/09/12) ?Z72.0 - Tobacco use (ICD-10) Renal mass (05/17/13) ?N28.89 - Other specified disorders of kidney and ureter (ICD-10) Meningioma ?D32.9 - Benign neoplasm of meninges, unspecified (ICD-10) Kidney calculus (01/09/12) ?N20.0 - Calculus of kidney (ICD-10) Surgical History Status post total hip replacement, right ?Z96.641 - Presence of right artificial hip joint (ICD-10) S/P eye surgery ?Z98.890 - Other specified postprocedural states (ICD-10) Status post arthroscopic knee surgery ?Z98.890 - Other specified postprocedural states (ICD-10) S/P craniotomy ?Z98.890 - Other specified postprocedural states (ICD-10) Status post transurethral resection of prostate (01/09/12) ?Z90.79 - Acquired absence of other genital organ(s) (ICD-10) History of umbilical hernia repair (01/09/12) ?Z98.890 - Other specified postprocedural states (ICD-10) ?Z87.19 - Personal history of other diseases of the digestive system (ICD-10) History of tonsillectomy (01/09/12) ?Z90.89 - Acquired absence of other organs (ICD-10) History of spinal surgery (01/09/12) ?Z98.890 - Other specified postprocedural states (ICD-10) History of shoulder surgery (01/09/12) ?Z98.890 - Other specified postprocedural states (ICD-10) History of cholecystectomy (01/09/12) ?Z90.49 - Acquired absence of other specified parts of digestive tract (ICD- 10) History of appendectomy ?Z90.49 - Acquired absence of other specified parts of digestive tract (ICD- 10) Social History What is your current living situation?: I presently have a place to live Problems where you live: no known problems Problems where you live details: NA In the past 12 months, utilities in danger of being shut off: no In past 12 months, lack of transportation kept you from medical appts, meetings, work, or getting things needed for daily living: no In the past 12 mos, have been you worried that your food would run out before you had money to buy more?: never true In the past 12 mos, the food you bought just didn't last and you didn't have money to buy more?: never true Highest level of school completed/degree received: Associate degree: occupational, technical, vocational program Smoking Status: Former smoker What tobacco products do you use: cigarettes Smoking quit date/years: >15 years ago Do you use any of these nicotine containing products: None Second hand tobacco smoke exposure: No How often do you have a drink containing alcohol: never How often do you have six or more drinks on one occasion: Never AUDIT-C Alcohol total score: 0 Non-prescribed substance use: denies use Caffeine: No How often does anyone, including family, friends and others, physically hurt you : never How often does anyone, including family, friends and others, insult or talk down to you: never How often does anyone, including family, friends and others, threaten you with harm: never How often does anyone, including family, friends and others, scream or curse at you: never service: No Meds Home Medications and Allergies Home Medications ?Medication ?Instructions ?Recorded ?Confirmed ?Type CPAP Machine Not Applicable 09/04/2212/11 History aspirin 81 mg tablet,delayed 81 mg PO DAILY 09/04/22 0 06/27/25 History release loratadine 10 mg tablet 10 mg PO DAILY 09/04/2206/13 History multivitamin (Multiple Vitamins 1 tab PO QAM 09/04/22 06/27/25 History tablet) omega-3 fatty acids 1,000 mg 1,000 mg PO DAILY 2 06/27/25 History capsule amlodipine 5 mg tablet 5 mg PO DAILY #90 tabs 09/1506/27/25 Rx atorvastatin 10 mg tablet 10 mg PO QPM #90 tabs 06/27/25 Rx fluticasone propionate 50 1 spray intranasal DAILY #16 grams 09/15/24 06/27/25 Rx mcg/actuation nasal spray,suspension losartan 100 mg tablet 100 mg PO DAILY #90 tabs 02/0306/27/25 Rx metoprolol succinate 25 mg 25 mg PO DAILY #90 tabs 02/0306/27/25 Rx tablet,extended release 24 hr omeprazole 20 mg capsule,delayed 20 mg PO BID #180 cap s 09/15/24 06/27/25 Rx release potassium chloride 10 mEq 10 meq PO DAILY #90 caps 02/0306/27/25 Rx capsule,extended release triamterene 37.5 1 cap PO DAILY #90 caps 02/0306/27/25 Rx mg-hydrochlorothiazide 25 mg capsule glipizide 10 mg tablet 10 mg PO QDAY #90 tabs 09/1612/27/24 Rx glipizide 5 mg tablet, extended 5 mg PO QDAY #90 tabs 12/27/24 06/27/25 Rx release 24 hr Allergies Allergy/AdvReac Type Severity Reaction Status Date / Time oxycodone Allergy Mild Gastrointestinal Verified 12/27/24 13:40 Upset silver nitrate Allergy Mild Rash Verified 12/27/24 13:40 Exam Narrative: Exam Narrative: PHYSICAL EXAM General: Very pleasant, conversant, NAD HEENT: Normocephalic, atraumatic, sclera white, EOMI, oral mucosa moist Cardiovascular: RRR, S1S2. No pitting edema Pulmonary: CTA bilaterally without rhonchi, rales, expiratory wheezes. No dyspnea on room air Abdominal: Soft, nondistended, NTTP Neurological: Alert, answering questions appropriately, cranial nerves intact, no focal findings Extremities: LLE shortened, externally rotated, pulses intact Skin: Warm, dry. Const: Vital Signs, click to edit/add: Vital Signs - 24 hr 06/27/25 19:25 06/27/25 19:42 06/27/25 19:50 Temperature 98.8 F Pulse Rate [Pulse Oximeter] 72 Respiratory Rate 16 Blood Pressure [Ri ght Upper Arm] 170/86 H Pulse Oximetry 90 93 92 Oxygen Delivery Me thod Room Air 06/27/25 20:00 06/27/25 20:21 06/27/25 20:22 Temperature Pulse Rate [Pulse Oximeter] Respiratory Rate Blood Pressure [Ri ght Upper Arm] Pulse Oximetry 89 90 90 Oxygen Delivery Me thod 06/27/25 20:30 06/27/25 20:40 06/27/25 20:43 Temperature Pulse Rate [Pulse Oximeter] Respiratory Rate Blood Pressure [Ri ght Upper Arm] 205/85 H Pulse Oximetry 93 90 [facility] - H&P: Result ECG Attestation: I personally reviewed and interpreted this ECG as follows: Interpretation: Sinus rhythm, does appear to have a first-degree AV block, PACs (previous history of) Imaging Hip x-ray: Attestation: I have reviewed the pertinent imaging results. Radiologist's impression: Bone: There is an intertrochanteric fracture of the left proximal femur present. Severe degenerative disc disease is present at L4-5 and L5-S1. Moderate diffuse osteopenia is present. Joint: A right bipolar hip arthroplasty is partially visualized. The visualized sacroiliac joints are unremarkable in appearance. The pubic symphysis is normal in appearance. Soft tissue: Unremarkable. No radiopaque foreign bodies are seen. IMPRESSION: 1. There is an intertrochanteric fracture of the left proximal femur present. Chest x-ray: Attestation: I have reviewed the pertinent imaging results. (Awaiting radiologist's review)
[2025-06-27 23:20] LABS: Hematocrit* 43.3 % (37.0-53.0); Hemoglobin* 14.4 gm/dL (13.5-17.5); Immature Granulocytes Pct Auto 1.2 %; Mean Corpuscular HGB Conc 33 gm/dL (32-36); Mean Corpuscular Hemoglobin 29 pg (26-34); Mean Corpuscular Volume 88 fL (80-100); RDW Coefficient of Variation % 13.2 % (11.5-15.5); Red Blood Count* 4.92 m/uL (4.30-5.90); White Blood Count* 14.72 K/uL (4.50-11.00)
[2025-06-27 23:23] LABS: Immature Granulocytes Abs Auto 0.20 K/uL (0.00-0.30); Lymphocytes Absolute Auto 1.50 K/uL (0.90-2.90); Slide Review Reflex No
[2025-06-27 23:32] LABS: Chloride* 100 mmol/L (96-114); Potassium* 3.6 mmol/L (3.6-5.1); Sodium* 139 mmol/L (135-149)
[2025-06-27 23:34] LABS: INR 1.04 (0.91-1.10); Prothrombin Time 14.4 Seconds
[2025-06-27 23:35] LABS: Anion Gap 6 mEq/L (7-15); Blood Urea Nitrogen* 14 mg/dL (7-30); Carbon Dioxide* 33 mmol/L (20-32); Creatinine* 0.7 mg/dL (0.5-1.5); Est. Creatinine Clearance* 52.28; Estimated Glomerular Filt Rate 93 ml/min
[2025-06-27 23:36] LABS: Calcium* 9.6 mg/dL (8.4-10.6); Glucose* 141 mg/dL (60-115)
[2025-06-27] MEDS: LIDOCAINE 5% PATCH 1 PATCH TRANSDERMA (23:37)
[2025-06-28] VITALS (22 sets, daily range): BP systolic 99–176; BP diastolic 48–87; PULSE 44–89; RESP 16–18; TEMP 36.5–36.9; O2SAT 90–99
[2025-06-28 06:44] LABS: Hematocrit* 41.7 % (37.0-53.0); Hemoglobin* 13.9 gm/dL (13.5-17.5); Mean Corpuscular HGB Conc 33 gm/dL (32-36); Mean Corpuscular Hemoglobin 29 pg (26-34); Mean Corpuscular Volume 88 fL (80-100); Red Blood Count* 4.76 m/uL (4.30-5.90); White Blood Count* 11.69 K/uL (4.50-11.00)
[2025-06-28 06:50] LABS: Slide Review Reflex No
[2025-06-28 06:53] LABS: Chloride* 102 mmol/L (96-114); Potassium* 3.2 mmol/L (3.6-5.1); Sodium* 139 mmol/L (135-149)
[2025-06-28 06:56] LABS: Anion Gap 5 mEq/L (7-15); Blood Urea Nitrogen* 17 mg/dL (7-30); Calcium* 9.4 mg/dL (8.4-10.6); Carbon Dioxide* 32 mmol/L (20-32); Creatinine* 0.8 mg/dL (0.5-1.5); Est. Creatinine Clearance* 52.28; Estimated Glomerular Filt Rate 89 ml/min; Glucose* 133 mg/dL (60-115)
--- NOTE | 2025-06-28 08:03 | PC.NURSE ---
Pt alert and oriented. Pt awaiting surgery. Pt on bed rest. Pt had complaints of pain see EMAR for intervention. Pt sleeping well overnight.?
[2025-06-28] MEDS: POTASSIUM CHLORIDE 10 MEQ/100 ML PIGGYBACK 100 MEQ IVPB ×2 (08:33→09:44)
[2025-06-28] MEDS: OMEPRAZOLE 20 MG CAPSULE DR PO ×2 (10:00→19:23)
[2025-06-28] MEDS: METOPROLOL SUCCINATE (XL) 25 MG TAB PO (10:00)
[2025-06-28] MEDS: LORATADINE 10 MG TABLET PO (10:00)
--- NOTE | 2025-06-28 10:00 | CRLHL7_ITS ---
For Patients: As a result of the Cures Act, medical imaging exams and procedure reports are released immediately into your electronic medical record. You may view this report before your referring provider. If you have questions, please contact your health care provider. Indication: intra op femur rodding Technique: Four fluoroscopic images of the left proximal femur. Fluoroscopic time 114.5 seconds. IMPRESSION: Fluoroscopic guidance for open reduction internal fixation of left proximal femoral fracture. Dictated by Andres Neal MD @ 06/28/2025 2:22:13 PM (Electronically Signed)
[2025-06-28] MEDS: LACTATED RINGERS 1000 ML 1,000 ML 125 ML IV ×2 (11:30)
--- NOTE | 2025-06-28 11:45 | P.NB_ITS ---
Nerve Block Nerve Block Time Seen by Provider: 11:25 Date Seen: 06/28/25 Type of block requested by surgeon for post-operative analgesia: JOVAN/LFCN Side: left Time out performed: Yes Verification of patient name: Yes Verification of date of : Yes Site marking: site marked Name of person performing procedure: Randall Continuous monitoring Was continuous monitoring of O2 sat, B/P, monitoring engineer, recorded every 15 minutes?: Yes Procedure Checklist: sterile prep, needles and gloves Ultrasound guided. Images saved: Yes Medications given in 5ml increments after negative aspiration: Ropivicaine %: 0.5 mL: 30 Needle gauge: 20 Precedex (mcg): 25 Patient tolerated procedure well: Yes Additional comments: Needle noted below psoas tendon needle noted adjacent to LFCN Block Charges Block Charge (with Pro Fee): Other Periph Nerve Block Use of Ultrasound Machine for Block: Yes- US Guidance/pain block
--- NOTE | 2025-06-28 11:45 | P.ANES_ITS ---
Anesthesia Charges Start Date/Time Anesthesia Start Date: 06/28/25 Anesthesia Start Time: 10:53 Stop Date/Time Anesthesia Stop Date: 06/28/25 Anesthesia Stop Time: 13:07 Summary Extremes of Age - Over 70 or under 1: MDA Coding CPT Codes CPT Codes: ANESTH SURGERY OF FEMUR - 78110 ([id number]) P3 - PATIENT W/SEVERE SYS DISEASE, QK - OUTPATIENT INTERVIEWING CLERK 2-4 CNCRNT ANES PROC, QX - OUTREACH AND EDUCATION SOCIAL WORKER SVC W/ MD MED DIRECTION Additional Codes: Summary - Extremes of Age - Over 70 or under 1: MDA ([id number])
--- NOTE | 2025-06-28 11:45 | W.ANESCHARGE ---
Anesthesia Charges Start Date/Time Anesthesia Start Date: 06/28/25 Anesthesia Start Time: 10:53 Stop Date/Time Anesthesia Stop Date: 06/28/25 Anesthesia Stop Time: 13:07 Summary Extremes of Age - Over 70 or under 1: MDA Coding CPT Codes CPT Codes: ANESTH SURGERY OF FEMUR - 84210 ([id number]) P3 - PATIENT W/SEVERE SYS DISEASE, QK - CLINICAL ASST 2-4 CNCRNT ANES PROC, QX - FUNCTIONAL CONSULTANT SVC W/ MD MED DIRECTION Additional Codes: Summary - Extremes of Age - Over 70 or under 1: MDA ([id number])
[2025-06-28] MEDS: TRANEXAMIC ACID 100 MG/ML INJ 1000 MG IV (11:47)
--- NOTE | 2025-06-28 12:45 | P.ORPRC_ITS ---
Procedure Note Date of procedure: 06/28/25 Procedure: PREOPERATIVE DIAGNOSIS: Left hip 2 part intertrochanteric fracture POSTOPERATIVE DIAGNOSIS: Left hip 2 part intertrochanteric fracture NAME OF OPERATION: Left hip fracture ORIF SURGEON: J Carlos Morillo MD OCCUPATIONAL THERAPIST PER DIEM: Gwen Celis PA-C IMPLANTS: Synthes intramedullary hip screw 10 mm x 170 mm with a 110 mm lag screw and a 40 mm distal interlocking screw ANESTHESIA: Spinal ESTIMATED BLOOD LOSS: 25 mL COMPLICATIONS: None SPECIMENS: None DRAINS: None PREOPERATIVE ANTIBIOTICS: Ancef 3 gram INDICATIONS: The patient is a 80-year-old who fell yesterday sustaining a 2 part intertrochanteric fracture of the left hip. They were admitted for workup and care. They have been medically cleared for surgery. The risks, benefits and expected outcomes were discussed in detail. These included but were not limited to: Infection, bleeding, injury to blood vessel or nerve, venous thromboembolism. All questions were answered to their satisfaction. Use of an video production assistant was necessary for patient positioning and safety, soft tissue retraction and closure, dressing application, and transfer of the patient to and from the hospital bed to the fracture table. PROCEDURE: Spinal anesthesia was administered. The patient was placed supine on the fracture table. The left lower extremity was prepped and draped in the usual sterile fashion. The limb was placed in longitudinal traction. Our provisional reduction was confirmed with the C-arm. The guide pin was placed percutaneously to the tip of the greater trochanter. It was advanced into the canal. Its placement was confirmed with the image intensifier in both AP and lateral views. We then made a stab incision around the guide pin. The soft tissue sleeve was advanced to the tip of the trochanter. The opening reamer was used. The intramedullary nail was placed. The guide pin was taken to the subchondral bone of the femoral head on both the AP and lateral views. It was placed in the posterior, inferior aspect of the head. The drill and the tap were used. We placed the 110 mm lag screw. Our reduction remains anatomic. Traction was released. The lag screw was set to static mode. We placed the distal interlocking screw. This construct was imaged in the AP and lateral views and was felt to be well placed with an anatomic reduction. The wounds were irrigated with normal saline. They were closed with Vicryl deep and Monocryl in the skin. A dry dressing was applied. Sponge and needle counts were correct x2. The patient tolerated the procedure well. There were no apparent complications. They were carefully transferred to the hospital bed and taken to the postanesthesia care unit in satisfactory condition. PLAN: The patient will be mobilized with physical therapy. They may weightbear as tolerates on the left lower extremity. Xarelto will be used for DVT prophylaxis. They will be discharged to a long term once medically appropriate.
--- NOTE | 2025-06-28 12:45 | PM.ORCN ---
History of Present Illness HPI Date Seen: 06/28/25 Chief complaint: hip injury Narrative: The patient is a community ambulator without assist. He fell sustaining a 2 part left intertrochanteric fracture. He was admitted for workup and treatment. He has never injured this hip or had surgery on it previously. He has previously sustained a work related right hip femoral neck fracture, treated with the bipolar. This was converted to a total hip arthroplasty. Review of Systems Narrative: The patient denies: Fever, night sweats, shaking chills, nausea, vomiting, diarrhea, chest pain, chest pressure, shortness of breath, no rash, no change in hearing or vision, no issues with bleeding or clotting [facility] Medical History Bacterial lobar pneumonia ?J15.9 - Unspecified bacterial pneumonia (ICD-10) Tobacco use (01/09/12) ?Z72.0 - Tobacco use (ICD-10) Renal mass (05/17/13) ?N28.89 - Other specified disorders of kidney and ureter (ICD-10) Meningioma ?D32.9 - Benign neoplasm of meninges, unspecified (ICD-10) Kidney calculus (01/09/12) ?N20.0 - Calculus of kidney (ICD-10) Surgical History Status post total hip replacement, right ?Z96.641 - Presence of right artificial hip joint (ICD-10) S/P eye surgery ?Z98.890 - Other specified postprocedural states (ICD-10) Status post arthroscopic knee surgery ?Z98.890 - Other specified postprocedural states (ICD-10) S/P craniotomy ?Z98.890 - Other specified postprocedural states (ICD-10) Status post transurethral resection of prostate (01/09/12) ?Z90.79 - Acquired absence of other genital organ(s) (ICD-10) History of umbilical hernia repair (01/09/12) ?Z98.890 - Other specified postprocedural states (ICD-10) ?Z87.19 - Personal history of other diseases of the digestive system (ICD-10) History of tonsillectomy (01/09/12) ?Z90.89 - Acquired absence of other organs (ICD-10) History of spinal surgery (01/09/12) ?Z98.890 - Other specified postprocedural states (ICD-10) History of shoulder surgery (01/09/12) ?Z98.890 - Other specified postprocedural states (ICD-10) History of cholecystectomy (01/09/12) ?Z90.49 - Acquired absence of other specified parts of digestive tract (ICD-10) History of appendectomy ?Z90.49 - Acquired absence of other specified parts of digestive tract (ICD-10) Social History What is your current living situation?: I presently have a place to live Problems where you live: no known problems Problems where you live details: NA In the past 12 months, utilities in danger of being shut off: no In past 12 months, lack of transportation kept you from medical appts, meetings, work, or getting things needed for daily living: no In the past 12 mos, have been you worried that your food would run out before you had money to buy more?: never true In the past 12 mos, the food you bought just didn't last and you didn't have money to buy more?: never true Highest level of school completed/degree received: Associate degree: occupational, technical, vocational program Smoking Status: Former smoker What tobacco products do you use: cigarettes Smoking quit date/years: >15 years ago Do you use any of these nicotine containing products: None Second hand tobacco smoke exposure: No How often do you have a drink containing alcohol: never How often do you have six or more drinks on one occasion: Never AUDIT-C Alcohol total score: 0 Non-prescribed substance use: denies use Caffeine: No How often does anyone, including family, friends and others, physically hurt you: never How often does anyone, including family, friends and others, insult or talk down to you: never How often does anyone, including family, friends and others, threaten you with harm: never How often does anyone, including family, friends and others, scream or curse at you: never service: No Meds Home Medications and Allergies Home Medications ?Medication ?Instructions ?Recorded ?Confirmed ?Type aspirin 81 mg tablet,delayed 81 mg PO DAILY 09/04/22 06/27/25 History release loratadine 10 mg tablet 10 mg PO DAILY 09/04/22 06/27/25 History multivitamin (Multiple Vitamins 1 tab PO QAM 09/04/22 06/27/25 History tablet) omega-3 fatty acids 1,000 mg 1,000 mg PO DAILY 09/04/22 06/27/25 History capsule atorvastatin 10 mg tablet 10 mg PO QPM #90 tabs 09/15/24 06/27/25 Rx fluticasone propionate 50 1 spray intranasal DAILY #16 grams 09/15/24 06/27/25 Rx mcg/actuation nasal spray,suspension losartan 100 mg tablet 100 mg PO DAILY #90 tabs 09/15/24 06/27/25 Rx metoprolol succinate 25 mg 25 mg PO DAILY #90 tabs 09/15/24 06/27/25 Rx tablet,extended release 24 hr omeprazole 20 mg capsule,delayed 20 mg PO BID #180 caps 09/15/24 06/27/25 Rx release potassium chloride 10 mEq 10 meq PO DAILY #90 caps 09/15/24 06/27/25 Rx capsule,extended release triamterene 37.5 1 cap PO DAILY #90 caps 09/15/24 06/27/25 Rx mg-hydrochlorothiazide 25 mg capsule glipizide 5 mg tablet, extended 5 mg PO QDAY #90 tabs 12/27/24 06/27/25 Rx release 24 hr amlodipine 5 mg tablet 5 mg PO DAILY 06/28/25 06/28/25 History Allergies Allergy/AdvReac Type Severity Reaction Status Date / Time oxycodone Allergy Mild Gastrointestinal Verified 12/27/24 13:40 Upset silver nitrate Allergy Mild Rash Verified 12/27/24 13:40 Ortho Exam Narrative Exam Narrative: The patient is examined supine in the hospital bed. The skin about the left hip is intact, no surgical scars, no swelling, no ecchymosis. CMS to the foot is normal. Const Vital Signs, click to edit/add: Vital Signs - 24 hr 06/27/25 19:25 06/27/25 19:42 06/27/25 19:50 Temperature 98.8 F Pulse Rate [Pulse Oximeter] 72 Respiratory Rate 16 Blood Pressure [Right Arm] Blood Pressure [Right Upper Arm] 170/86 H Pulse Oximetry 90 93 92 Oxygen Delivery Method Room Air 06/27/25 20:00 06/27/25 20:21 06/27/25 20:22 Temperature Pulse Rate [Pulse Oximeter] Respiratory Rate Blood Pressure [Right Arm] Blood Pressure [Right Upper Arm] Pulse Oximetry 89 90 90 Oxygen Delivery Method 06/27/25 20:30 06/27/25 20:40 06/27/25 20:43 Temperature Pulse Rate [Pulse Oximeter] Respiratory Rate Blood Pressure [Right Arm] Blood Pressure [Right Upper Arm] 205/85 H Pulse Oximetry 93 90 Oxygen Delivery Method 06/27/25 22:38 06/27/25 22:50 06/28/25 03:00 Temperature 98.2 F 98.3 F Pulse Rate [Pulse Oximeter] 62 65 Respiratory Rate 20 20 16 Blood Pressure [Right Arm] 153/83 H 166/87 H Blood Pressure [Right Upper Arm] Pulse Oximetry 92 92 92 Oxygen Delivery Method Room Air Room Air Room Air 06/28/25 07:39 Temperature 98.3 F Pulse Rate [Pulse Oximeter] 67 Respiratory Rate 18 Blood Pressure [Right Arm] 160/86 H Blood Pressure [Right Upper Arm] Pulse Oximetry 93 Oxygen Delivery Method Room Air Results Labs Labs: Laboratory Results - last 48 hr 06/27/25 06/28/25 23:15 06:25 WBC 14.72 H 11.69 H RBC 4.92 4.76 Hgb 14.4 13.9 Hct 43.3 41.7 MCV 88 88 MCH 29 29 MCHC 33 33 RDW Coeff of Nitin 13.2 Plt Count 213 206 Neut % (Auto) 82.9 H Lymph % (Auto) 10.3 L Edwards % (Auto) 5.3 Eos % (Auto) 0.0 Baso % (Auto) 0.3 Neut # (Auto) 12.20 H Lymph # (Auto) 1.50 Edwards # (Auto) 0.80 Eos # (Auto) 0.00 Baso # (Auto) 0.00 Abs Immat Gran (auto) 0.20 Imm/Tot Granulo (auto) 1.2 INR 1.04 Sodium 139 139 Potassium 3.6 3.2 L Chloride 100 102 Carbon Dioxide 33 H 32 Anion Gap 6 L 5 L BUN 14 17 Creatinine 0.7 0.8 Estimated Creat Clear 52.28 52.28 Estimated GFR 93 89 Glucose 141 H 133 H Calcium 9.6 9.4 Diagnostic results Additional Comments: An AP pelvis, AP and cross-table lateral view of the left hip show a 2 part intertrochanteric fracture. There is no pre-existing hip joint arthritis. There is no obvious pathologic lesion. A right total hip arthroplasty is in place. No obvious periprosthetic fracture is noted. Assessment and Plan Assessment and plan (1) Hip fracture: Problem comment: -from ground level fall -plain film shows intertrochanteric fracture of the left proximal femur -ED provider discussed with Orthopedic surgery, plan for OR 06/28 -NPO after midnight, gentle IVF -pain management as needed -PT/OT postoperatively -SCDs for VTE PPX Status: Acute Total time spent: Total time spent is greater than 50% in coordination of care (as documented) at patient's floor/unit and/or counseling patient: (2) Diabetes type 2, controlled: Problem comment: -most recent A1c 7.3 -hold glipizide for now -glucose checks and sliding scale ACHS -Metformin intolerance Status: Acute Total time spent: Total time spent is greater than 50% in coordination of care (as documented) at patient's floor/unit and/or counseling patient: (3) Hypertension: Problem comment: -metoprolol in the morning, hold losartan, amlodipine, triam/HCTZ, ASA Status: Acute Total time spent: Total time spent is greater than 50% in coordination of care (as documented) at patient's floor/unit and/or counseling patient: (4) Hyperlipidemia: Problem comment: -continue statin Status: Acute Total time spent: Total time spent is greater than 50% in coordination of care (as documented) at patient's floor/unit and/or counseling patient: (5) PANCHO on CPAP: Problem comment: - will bring CPAP tomorrow -O2 p.r.n. especially while receiving narcotics, oximetry Status: Acute Total time spent: Total time spent is greater than 50% in coordination of care (as documented) at patient's floor/unit and/or counseling patient: (6) Chronic obstructive pulmonary disease: Problem comment: -encourage pulmonary hygiene postoperatively Status: Acute Total time spent: Total time spent is greater than 50% in coordination of care (as documented) at patient's floor/unit and/or counseling patient: Plan Assessment: Two part left hip intertrochanteric fracture Plan: He has been medically cleared for surgery. Therefore, we will plan to take him to the operating today for ORIF of his left hip fracture.
--- NOTE | 2025-06-28 13:11 | P.ANES_ITS ---
Anesthesia Charges Start Date/Time Anesthesia Start Date: 06/28/25 Anesthesia Start Time: 10:53 Stop Date/Time Anesthesia Stop Date: 06/28/25 Anesthesia Stop Time: 13:07 Summary Extremes of Age - Over 70 or under 1: BLADE GROOVER Coding CPT Codes CPT Codes: ANESTH SURGERY OF FEMUR - 75143 ([id number]) P3 - PATIENT W/SEVERE SYS DISEASE, QK - NURSING INFORMATICS CLINICAL ANALYST 2-4 CNCRNT ANES PROC Additional Codes: Summary - Extremes of Age - Over 70 or under 1: BLADE GROOVER ([id number])
--- NOTE | 2025-06-28 13:11 | W.ANESCHARGE ---
Anesthesia Charges Start Date/Time Anesthesia Start Date: 06/28/25 Anesthesia Start Time: 10:53 Stop Date/Time Anesthesia Stop Date: 06/28/25 Anesthesia Stop Time: 13:07 Summary Extremes of Age - Over 70 or under 1: PEANUT BLANCHER Coding CPT Codes CPT Codes: ANESTH SURGERY OF FEMUR - 63450 ([id number]) P3 - PATIENT W/SEVERE SYS DISEASE, QK - BRAND PLANNER 2-4 CNCRNT ANES PROC Additional Codes: Summary - Extremes of Age - Over 70 or under 1: PEANUT BLANCHER ([id number])
--- NOTE | 2025-06-28 13:39 | P.IMPN_ITS ---
Assessment and Plan Assessment and plan (1) Hip fracture: Problem comment: -ORIF 06/28/25 Status: Acute (2) Diabetes type 2, controlled: Problem comment: -most recent A1c 7.3 -hold glipizide for now -glucose checks and sliding scale ACHS -Metformin intolerance Status: Acute (3) Hypertension: Problem comment: -metoprolol in the morning, hold losartan, amlodipine, triam/HCTZ, ASA Status: Acute (4) Hyperlipidemia: Problem comment: -continue statin Status: Acute (5) PANCHO on CPAP: Problem comment: - will bring CPAP tomorrow -O2 p.r.n. especially while receiving narcotics, oximetry Status: Acute (6) Chronic obstructive pulmonary disease: Problem comment: -encourage pulmonary hygiene postoperatively Status: Acute Subjective Date Seen: 06/28/25 Interval history: Daily Progress Note - Hospital Medicine Day #: 2 Operative Day - Left hip fracture ORIF 06/28/25 CC: mechanical fall, DOI 06/27/25 24 HOUR UPDATE: stable night. Evaluated prior to surgery. 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 Laughing. Vitals: see above Lungs: Clear. Cardiac: S1S2. Disposition/Potential discharge - TCU likely; TBD Today I spent 50minutes seeing the patient, reviewing Expanse and EPIC notes/diagnostics, discussing the care plan with our care time that includes social work, PT/OT, pharmacy, RT, jail and documenting my impressions and plan in the medical record. Exam Const: Vital Signs, click to edit/add: Vital Signs - 24 hr 06/27/25 19:25 06/27/25 19:42 06/27/25 19:50 Temperature 98.8 F Pulse Rate Pulse Rate [Pulse Oximeter] 72 Respiratory Rate 16 Blood Pressure Blood Pressure [Ri ght Arm] Blood Pressure [Ri ght Upper Arm] 170/86 H Pulse Oximetry 90 93 92 Oxygen Delivery Me thod Room Air Oxygen Flow Rate 06/27/25 20:00 06/27/25 20:21 06/27/25 20:22 Temperature Pulse Rate Pulse Rate [Pulse Oximeter] Respiratory Rate Blood Pressure Blood Pressure [Ri ght Arm] Blood Pressure [Ri ght Upper Arm] Pulse Oximetry 89 90 90 Oxygen Delivery Me thod Oxygen Flow Rate 06/27/25 20:30 06/27/25 20:40 06/27/25 20:43 Temperature Pulse Rate Pulse Rate [Pulse Oximeter] Respiratory Rate Blood Pressure Blood Pressure [Ri ght Arm] Blood Pressure [Ri ght Upper Arm] 205/85 H Pulse Oximetry 93 90 Oxygen Delivery Me thod Oxygen Flow Rate 06/27/25 22:38 06/27/25 22:50 06/28/25 03:00 Temperature 98.2 F 98.3 F Pulse Rate Pulse Rate [Pulse Oximeter] 62 65 Respiratory Rate 20 20 16 Blood Pressure Blood Pressure [Ri ght Arm] 153/83 H 166/87 H Blood Pressure [Ri ght Upper Arm] Pulse Oximetry 92 92 92 Oxygen Delivery Me thod Room Air Room Air Room Air Oxygen Flow Rate 06/28/25 07:39 06/28/25 13:05 06/28/25 13:10 Temperature 98.3 F 98.5 F Pulse Rate 72 55 L Pulse Rate [Pulse Oximeter] 67 Respiratory Rate 18 16 16 Blood Pressure 99/48 L 101/56 L Blood Pressure [Ri ght Arm] 160/86 H Blood Pressure [Ri ght Upper Arm] Pulse Oximetry 93 93 99 Oxygen Delivery Me thod Room Air Non Rebreather Mas k Non Rebreather Mas k Oxygen Flow Rate 10 10 06/28/25 13:15 06/28/25 13:20 06/28/25 13:25 Temperature Pulse Rate 52 L 50 L 53 L Pulse Rate [Pulse Oximeter] Respiratory Rate 16 16 16 Blood Pressure 111/52 L 123/54 L 126/64 Blood Pressure [Ri ght Arm] Blood Pressure [Ri ght Upper Arm] Pulse Oximetry 98 98 98 Oxygen Delivery Me thod Non Rebreather Mas k Non Rebreather Mas k Non Rebreather Mas k Oxygen Flow Rate 10 10 10 06/28/25 13:30 06/28/25 13:35 Temperature 98 F Pulse Rate 56 L 51 L Pulse Rate [Pulse Oximeter] Respiratory Rate 16 16 Blood Pressure 138/58 L 134/70 Blood Pressure [Ri ght Arm] Blood Pressure [Ri ght Upper Arm] Pulse Oximetry 92 95 Oxygen Delivery Me thod Nasal Cannula Nasal Cannula Oxygen Flow Rate 2 2 Labs Labs: Laboratory Results - last 24 hr 06/27/25 06/28/25 23:15 06:25 WBC 14.72 H 11.69 H RBC 4.92 4.76 Hgb 14.4 13.9 Hct 43.3 41.7 MCV 88 88 MCH 29 29 MCHC 33 33 RDW Coeff of Nitin 13.2 Plt Count 213 206 Neut % (Auto) 82.9 H Lymph % (Auto) 10.3 L [place] % (Auto) 5.3 Eos % (Auto) 0.0 Baso % (Auto) 0.3 Neut # (Auto) 12.20 H Lymph # (Auto) 1.50 [place] # (Auto) 0.80 Eos # (Auto) 0.00 Baso # (Auto) 0.00 Abs Immat Gran (auto) 0.20 Imm/Tot Granulo (auto) 1.2 INR 1.04 Sodium 139 139 Potassium 3.6 3.2 L Chloride 100 102 Carbon Dioxide 33 H 32 Anion Gap 6 L 5 L BUN 14 17 Creatinine 0.7 0.8 Estimated Creat Clear 52.28 52.28 Estimated GFR 93 89 Glucose 141 H 133 H Calcium 9.6 9.4
[2025-06-28] MEDS: LACTATED RINGERS 1000 ML 1,000 ML 75 ML IV (14:34)
[2025-06-28] MEDS: SODIUM CHLORIDE 0.9 % (FLUSH) 10 ML SYRINGE 5 ML IVF ×3 (16:03→19:24)
[2025-06-28] MEDS: ACETAMINOPHEN 325 MG TABLET 650 MG PO ×2 (17:13→23:56)
[2025-06-28] MEDS: ATORVASTATIN CALCIUM 10 MG TABLET PO (17:56)
[2025-06-28] MEDS: CEFAZOLIN 3 GM in 0.9 % SODIUM CHLORIDE Mini-bag 100 ML IVPB (17:57)
[2025-06-28] MEDS: SENNOSIDES/DOCUSATE TABLET 1 TAB PO (19:23)
[2025-06-28] MEDS: SENNOSIDES 1 TAB TABLET 2 TAB PO (22:56)
[2025-06-29] VITALS (7 sets, daily range): BP systolic 144–185; BP diastolic 57–83; PULSE 51–98; RESP 16–22; TEMP 36.4–36.8; O2SAT 90–97
[2025-06-29] MEDS: SODIUM CHLORIDE 0.9 % (FLUSH) 10 ML SYRINGE 5 ML IVF ×4 (01:21→20:53)
[2025-06-29] MEDS: CEFAZOLIN 3 GM in 0.9 % SODIUM CHLORIDE Mini-bag 100 ML IVPB (01:58)
--- NOTE | 2025-06-29 05:08 | PC.NURSE ---
end of shift: Pt is AOX4. 2L NC O2. Pt two dressings on L hip C/D/I. No edema or bruising. Pt AMB and transfers X2 w/ GB & walker. Pain meds given to manage pain; see EMAR. Active ice applied. Pt resting comfortably in bed; call light w/i reach.
[2025-06-29] MEDS: ACETAMINOPHEN 325 MG TABLET 650 MG PO ×2 (05:40→13:41)
[2025-06-29] MEDS: LACTATED RINGERS 1000 ML 1,000 ML 75 ML IV (05:44)
[2025-06-29 06:34] LABS: Hematocrit* 38.6 % (37.0-53.0); Hemoglobin* 12.5 gm/dL (13.5-17.5); Mean Corpuscular HGB Conc 32 gm/dL (32-36); Mean Corpuscular Hemoglobin 30 pg (26-34); Mean Corpuscular Volume 91 fL (80-100); Red Blood Count* 4.24 m/uL (4.30-5.90); White Blood Count* 12.80 K/uL (4.50-11.00)
[2025-06-29 06:38] LABS: Slide Review Reflex No
[2025-06-29 06:43] LABS: Chloride* 102 mmol/L (96-114); Potassium* 3.9 mmol/L (3.6-5.1); Sodium* 138 mmol/L (135-149)
[2025-06-29 06:46] LABS: Anion Gap 3 mEq/L (7-15); Blood Urea Nitrogen* 24 mg/dL (7-30); Calcium* 8.9 mg/dL (8.4-10.6); Carbon Dioxide* 33 mmol/L (20-32); Creatinine* 1.0 mg/dL (0.5-1.5); Est. Creatinine Clearance* 52.28; Estimated Glomerular Filt Rate 76 ml/min; Glucose* 127 mg/dL (60-115)
--- NOTE | 2025-06-29 08:14 | PM.ORPN ---
Subjective Subjective Time Seen by Provider: 07:10 Date Seen: 06/29/25 Principal diagnosis: Status post left hip IM rodding for intertrochanteric fracture Interval history: Neville is able to transfer from bed to chair with some difficulty. He has pain. He would like to go home, however this may not be possible. He may need [facility]. Scutcher Tender has not yet consulted, nor physical therapy yet. Ortho Exam Narrative Exam Narrative: Alert and oriented x3. Patient is in no acute distress. Converses without labored breathing. Hearing is grossly intact. Ambulates with a walker. He is weightbear as tolerated left lower extremity Examination of the left lower extremity shows dressings are intact. No pretibial edema. Calves are soft and nontender. CMS is intact left lower extremity. He is able to put some weight on the left lower extremity. This was somewhat difficult for him transitioning from bed to chair due to pain and body mass. Const Vital Signs, click to edit/add: Vital Signs - 24 hr 06/28/25 13:05 06/28/25 13:10 06/28/25 13:15 Temperature 98.5 F Pulse Rate 72 55 L 52 L Pulse Rate [Pulse Oximeter] Pulse Rate [Radial] Respiratory Rate 16 16 16 Blood Pressure 99/48 L 101/56 L 111/52 L Blood Pressure [Right Arm] Pulse Oximetry 93 99 98 Oxygen Delivery Method Non Rebreather Mask Non Rebreather Mask Non Rebreather Mask Oxygen Flow Rate 10 10 10 06/28/25 13:20 06/28/25 13:25 06/28/25 13:30 Temperature Pulse Rate 50 L 53 L 56 L Pulse Rate [Pulse Oximeter] Pulse Rate [Radial] Respiratory Rate 16 16 16 Blood Pressure 123/54 L 126/64 138/58 L Blood Pressure [Right Arm] Pulse Oximetry 98 98 92 Oxygen Delivery Method Non Rebreather Mask Non Rebreather Mask Nasal Cannula Oxygen Flow Rate 10 10 2 06/28/25 13:35 06/28/25 13:46 06/28/25 14:00 Temperature 98 F 97.7 F Pulse Rate 51 L Pulse Rate [Pulse Oximeter] Pulse Rate [Radial] 44 L 50 L Respiratory Rate 16 16 16 Blood Pressure 134/70 Blood Pressure [Right Arm] 148/63 H 140/61 H Pulse Oximetry 95 95 95 Oxygen Delivery Method Nasal Cannula Nasal Cannula Nasal Cannula Oxygen Flow Rate 2 2 2 06/28/25 14:15 06/28/25 14:15 06/28/25 14:30 Temperature Pulse Rate Pulse Rate [Pulse Oximeter] Pulse Rate [Radial] 52 L 46 L Respiratory Rate 18 18 18 Blood Pressure Blood Pressure [Right Arm] 144/62 H 138/67 Pulse Oximetry 96 96 96 Oxygen Delivery Method Nasal Cannula Nasal Cannula Nasal Cannula Oxygen Flow Rate 2 2 2 06/28/25 14:45 06/28/25 15:00 06/28/25 15:00 Temperature Pulse Rate Pulse Rate [Pulse Oximeter] 63 Pulse Rate [Radial] 49 L Respiratory Rate 18 18 18 Blood Pressure Blood Pressure [Right Arm] 150/66 H Pulse Oximetry 95 97 Oxygen Delivery Method Nasal Cannula Nasal Cannula Oxygen Flow Rate 2 2 06/28/25 15:00 06/28/25 15:30 06/28/25 16:30 Temperature 98 F Pulse Rate Pulse Rate [Pulse Oximeter] 63 66 83 Pulse Rate [Radial] Respiratory Rate 18 18 18 Blood Pressure Blood Pressure [Right Arm] 145/65 H 151/86 H 176/60 H Pulse Oximetry 97 97 90 Oxygen Delivery Method Nasal Cannula Nasal Cannula Nasal Cannula Oxygen Flow Rate 2 2 2 06/28/25 17:30 06/28/25 18:30 06/28/25 19:30 Temperature 98.3 F Pulse Rate Pulse Rate [Pulse Oximeter] 82 Pulse Rate [Radial] Respiratory Rate 18 18 18 Blood Pressure Blood Pressure [Right Arm] 151/81 H 119/58 L 156/80 H Pulse Oximetry 93 97 95 Oxygen Delivery Method Nasal Cannula Nasal Cannula Nasal Cannula Oxygen Flow Rate 2 2 2 06/28/25 23:00 06/28/25 23:00 06/29/25 03:00 Temperature 98.1 F Pulse Rate Pulse Rate [Pulse Oximeter] 82 62 Pulse Rate [Radial] Respiratory Rate 18 18 16 Blood Pressure Blood Pressure [Right Arm] 144/83 H Pulse Oximetry 95 97 Oxygen Delivery Method Nasal Cannula Nasal Cannula Oxygen Flow Rate 2 2 Assessment and Plan Assessment and plan (1) History of open reduction and internal fixation (ORIF) procedure: Problem details: Left hip fracture ORIF (06/28/2025, Dr. Morillo) Status: Acute Assessment and Plan: Plan for discharge is when he meets discharge criteria. Social service to consult, physical therapy has not yet worked with him. He has pain and difficulty with transitioning, pivoting from bed to chair. He was able to put some weight on the left lower extremity. His body mass and pain level makes this difficult for him. Will see how he moves with PT. He would like to go home. I do not know if this will be possible. He [facility] need a [facility] [place]. DVT prophylaxis upon discharge includes Xarelto 10mg daily for a total of 35 days, Remove dressing 1 week. Observe wound and phone Orthopedics with any questions or concerns Use Ice on operative hip unrestricted. Return to clinic in 1-2 weeks for a wound check Return to clinic in 6 weeks with surgeon Minimize narcotic use. Wean off and discontinue soon as possible. Weightbear as tolerated left lower extremity Attend physical therapy
[2025-06-29] MEDS: OMEPRAZOLE 20 MG CAPSULE DR PO ×2 (08:39→20:51)
[2025-06-29] MEDS: METOPROLOL SUCCINATE (XL) 25 MG TAB PO (08:39)
[2025-06-29] MEDS: LORATADINE 10 MG TABLET PO (08:39)
[2025-06-29] MEDS: RIVAROXABAN 10 MG TABLET PO (08:40)
[2025-06-29] MEDS: POTASSIUM CHLORIDE 10 MEQ CAPSULE ER PO (08:40)
[2025-06-29] MEDS: SENNOSIDES 1 TAB TABLET 2 TAB PO ×2 (08:40→20:51)
--- NOTE | 2025-06-29 14:24 | PC.SOCIAL ---
Addendum entered by Roseanna Gu, [facility] 06/29/25 16:34: Discharge planning: Pt gave this worker the okay for [facility] to place the prior authorization with insurance. ironing worker notified Deshawn Mendosa at [facility] this afternoon that the prior authorization can be submitted. Social work to follow-up as needed. Addendum entered and electronically signed by Lorena Coffey, [facility] 06/29/25 15:57: LATRICE informed by Deshawn at [facility] that they can offer a private bed/shared bath to patient for 06/30 pending prior auth. SW discussed this with patient who states he wants to talk with his who will be coming later. SW asked if she could call and discuss this with her, patient agreed. SW spoke with patient's who reports that she will talk with patient about this. SW spoke with patient again who had questions about copay. LATRICE spoke with Deshawn, who states copay will be 209.50 starting on day 21. LATRICE called patient's and informed her of this copay. Patient's states she will be here at 600PM and will talk with patient and then he can go tomorrow as she thinks they will be in agreement. SW explained that she is unsure if he can go tomorrow as a prior auth needs to be initiated and it is best to start this tonight if they would like patient to go to rehab tomorrow. Patient's states she will call him to discuss this and then SW can ask him what his final response is. LATRICE emailed Deshawn updating that SW spoke with patient and patient's and we should have an answer shortly. Original Note: Discharge planning: SW met with patient and patient's . Patient informed SW that he doesn't know about going to rehab as it's only been 24 hours since surgery and he doesn't know how he will be. SW expressed understanding and explained that right now the recommendation is that he needs rehab. SW explained that we need to start a discharge plan right away and recognize that things could change. Patient discussed that he went to [facility] for rehab last time and that he felt as though they were forcing him to stay to get money out of his insurance. SW informed that patient can leave rehab at any time, however, if the provider doesn't feel it's in the patient's best interest it would be AMA and there could be barriers to getting medications or other services set up. Patient expressed understanding. SW provided patient with a list of SNF's in the area. Patient had the following choices - 1. [facility] 2. [facility] 3. [facility]. SW sent referrals to all of patient's choices and is awaiting a response. SW explained to patient that if any accept, even if it's not their top choice, patient will go there and patient expressed understanding. SW to continue to follow-up with SNF's regarding placement and bed availability.
--- NOTE | 2025-06-29 15:18 | P.IMPN_ITS ---
Assessment and Plan Assessment and plan (1) Hip fracture: Problem comment: -ORIF 06/28/25 Status: Acute (2) Diabetes type 2, controlled: Problem comment: -most recent A1c 7.3 -hold glipizide for now -glucose checks and sliding scale ACHS -Metformin intolerance Status: Acute (3) Hypertension: Problem comment: -metoprolol in the morning, hold losartan, amlodipine, triam/HCTZ, ASA Status: Acute (4) Hyperlipidemia: Problem comment: -continue statin Status: Acute (5) PANCHO on CPAP: Problem comment: - will bring CPAP tomorrow -O2 p.r.n. especially while receiving narcotics, oximetry Status: Acute (6) Chronic obstructive pulmonary disease: Problem comment: -encourage pulmonary hygiene postoperatively Status: Acute Subjective Date Seen: 06/29/25 Interval history: Daily Progress Note - Hospital Medicine Day #: 3 POD #1 - Left hip fracture ORIF 06/28/25 CC: mechanical fall, DOI 06/27/25 24 HOUR UPDATE: stable night. pt is having a lot of pain with movement and working with PT. Notable Labs, Micro, Rads, Interventions: pre-op hgb 13.9, now 12.5 Normal INR Potassium is normal today EKG reviewed Objective: alert; calm. Vitals: see above Lungs: Clear. Cardiac: S1S2. Disposition/Potential discharge - TCU likely; TBD Today I spent 50minutes seeing the patient, reviewing Expanse and EPIC notes/diagnostics, discussing the care plan with our care time that includes social work, PT/OT, pharmacy, RT, half-way and documenting my impressions and plan in the medical record. Exam Const: Vital Signs, click to edit/add: Vital Signs - 24 hr 06/28/25 15:30 06/28/25 16:30 06/28/25 17:30 Temperature 98 F Pulse Rate [Pulse Oximeter] 66 83 82 Pulse Rate [Radial ] Respiratory Rate 18 18 18 Blood Pressure [Ri ght Arm] 151/86 H 176/60 H 151/81 H Pulse Oximetry 97 90 93 Oxygen Delivery Me thod Nasal Cannula Nasal Cannula Nasal Cannula Oxygen Flow Rate 2 2 2 06/28/25 18:30 06/28/25 19:30 06/28/25 23:00 Temperature 98.3 F Pulse Rate [Pulse Oximeter] 82 Pulse Rate [Radial ] Respiratory Rate 18 18 18 Blood Pressure [Ri ght Arm] 119/58 L 156/80 H Pulse Oximetry 97 95 Oxygen Delivery Me thod Nasal Cannula Nasal Cannula Oxygen Flow Rate 2 2 06/28/25 23:00 06/29/25 03:00 06/29/25 07:00 Temperature 98.1 F 97.5 F L Pulse Rate [Pulse Oximeter] 62 98 Pulse Rate [Radial ] Respiratory Rate 18 16 22 Blood Pressure [Ri ght Arm] 144/83 H 157/57 H Pulse Oximetry 95 97 90 Oxygen Delivery Me thod Nasal Cannula Nasal Cannula Nasal Cannula Oxygen Flow Rate 2 2 2 06/29/25 07:00 06/29/25 07:00 06/29/25 11:00 Temperature 98.3 F Pulse Rate [Pulse Oximeter] 98 Pulse Rate [Radial ] 80 Respiratory Rate 16 Blood Pressure [Ri ght Arm] 170/73 H Pulse Oximetry 90 90 Oxygen Delivery Me thod Nasal Cannula Room Air Oxygen Flow Rate 06/29/25 14:34 Temperature Pulse Rate [Pulse Oximeter] Pulse Rate [Radial ] Respiratory Rate Blood Pressure [facility]] Pulse Oximetry 90 Oxygen Delivery Me thod Nasal Cannula Oxygen Flow Rate 2 Labs Labs: Laboratory Results - last 24 hr 06/29/25 06:17 WBC 12.80 H RBC 4.24 L Hgb 12.5 L Hct 38.6 MCV 91 MCH 30 MCHC 32 Plt Count 168 Sodium 138 Potassium 3.9 Chloride 102 Carbon Dioxide 33 H Anion Gap 3 L BUN 24 Creatinine 1.0 Estimated Creat Clear 52.28 Estimated GFR 76 Glucose 127 H Calcium 8.9
[2025-06-29] MEDS: ATORVASTATIN CALCIUM 10 MG TABLET PO (18:33)
[2025-06-29] MEDS: ACETAMINOPHEN 650 MG TABLET ER 1300 MG PO (18:33)
[2025-06-29] MEDS: LIDOCAINE 5% PATCH 1 PATCH TRANSDERMA (18:34)
--- NOTE | 2025-06-29 19:51 | PC.NURSE ---
End of shift Note 277 Patient has been pleasant and cooperative throughout shift. Folley in place. VSS. Patient has declined PT/OT until tomorrow. 2L NC. Glass eye (left). Slightly hard of hearing. Lidocaine patch on left upper thigh 2 away from incision. Pivot from chair/bed 1 assist.
[2025-06-30] VITALS (10 sets, daily range): BP systolic 156–197; BP diastolic 64–84; PULSE 55–94; RESP 16–20; TEMP 36.4–37.1; O2SAT 89–98
[2025-06-30] MEDS: ACETAMINOPHEN 650 MG TABLET ER 1300 MG PO ×2 (06:05→18:20)
[2025-06-30 06:41] LABS: Hematocrit* 38.7 % (37.0-53.0); Hemoglobin* 12.7 gm/dL (13.5-17.5); Mean Corpuscular HGB Conc 33 gm/dL (32-36); Mean Corpuscular Hemoglobin 30 pg (26-34); Mean Corpuscular Volume 90 fL (80-100); Red Blood Count* 4.30 m/uL (4.30-5.90); White Blood Count* 11.82 K/uL (4.50-11.00)
[2025-06-30 06:45] LABS: Chloride* 101 mmol/L (96-114); Potassium* 3.5 mmol/L (3.6-5.1); Sodium* 139 mmol/L (135-149)
[2025-06-30 06:48] LABS: Anion Gap 6 mEq/L (7-15); Blood Urea Nitrogen* 22 mg/dL (7-30); Carbon Dioxide* 32 mmol/L (20-32); Creatinine* 0.8 mg/dL (0.5-1.5); Est. Creatinine Clearance* 52.28; Estimated Glomerular Filt Rate 89 ml/min
[2025-06-30 06:49] LABS: Calcium* 9.3 mg/dL (8.4-10.6); Glucose* 120 mg/dL (60-115); Slide Review Reflex No
[2025-06-30] MEDS: SODIUM CHLORIDE 0.9 % (FLUSH) 10 ML SYRINGE 5 ML IVF ×4 (07:26→20:27)
--- NOTE | 2025-06-30 07:32 | PC.NURSE ---
End of Shift: Pt pleasant, alert and oriented. VSS.?1-2a with walker and gait belt. Pt reminded to breathe while walking instead of holding breath. O2 sats remained above 90% on 2L NC. Pt in bed, appears to be resting, call light within reach.?
[2025-06-30] MEDS: RIVAROXABAN 10 MG TABLET PO (07:37)
[2025-06-30] MEDS: METOPROLOL SUCCINATE (XL) 25 MG TAB PO (07:37)
[2025-06-30] MEDS: POTASSIUM CHLORIDE 10 MEQ CAPSULE ER PO (07:37)
[2025-06-30] MEDS: LORATADINE 10 MG TABLET PO (07:37)
[2025-06-30] MEDS: SENNOSIDES 1 TAB TABLET 2 TAB PO ×2 (07:38→20:25)
[2025-06-30] MEDS: AMLODIPINE 5 MG TABLET PO (08:29)
[2025-06-30] MEDS: LOSARTAN POTASSIUM 50 MG TABLET 100 MG PO (08:29)
[2025-06-30] MEDS: OMEPRAZOLE 20 MG CAPSULE DR PO ×2 (08:29→20:25)
[2025-06-30] MEDS: CELECOXIB 200 MG CAPSULE PO ×2 (08:29→20:26)
--- NOTE | 2025-06-30 09:31 | PM.IMPN1 ---
Assessment and Plan Assessment and plan (1) Hip fracture: Problem comment: -ORIF 06/28/25 -Xarelto for VTE ppx -pain control with scheduled Tylenol, Celebrex, Lidoderm patch, prn dilaudid (PO) -will likely need TCU, short term Status: Acute (2) Diabetes type 2, controlled: Problem comment: -most recent A1c 7.3 -hold glipizide for now -glucose checks and sliding scale ACHS -Metformin intolerance Status: Acute (3) Hypertension: Problem comment: -restarting home meds Status: Acute (4) Hyperlipidemia: Problem comment: -continue statin Status: Acute (5) PANCHO on CPAP: Problem comment: - will bring CPAP tomorrow -O2 p.r.n. especially while receiving narcotics, oximetry Status: Acute (6) Chronic obstructive pulmonary disease: Problem comment: -encourage pulmonary hygiene postoperatively Status: Acute Subjective Date Seen: 06/30/25 Interval history: Daily Progress Note - Hospital Medicine Day #: 4 POD #2 - Left hip fracture ORIF 06/28/25 CC: mechanical fall, DOI 06/27/25 24 HOUR UPDATE: stable night. pt is having a lot of pain with movement and working with PT. Notable Labs, Micro, Rads, Interventions: pre-op hgb 13.9 --> 12.5 --> 12.7 Normal INR Potassium is tracking a little low EKG reviewed Objective: alert; calm. Vitals: see above Lungs: Clear. Cardiac: S1S2. Disposition/Potential discharge - TCU likely; TBD Today I spent 50minutes seeing the patient, reviewing Expanse and EPIC notes/diagnostics, discussing the care plan with our care time that includes social work, PT/OT, pharmacy, RT, penitentiary and documenting my impressions and plan in the medical record. Exam Const: Vital Signs, click to edit/add: Vital Signs - 24 hr 06/29/25 11:00 06/29/25 14:34 06/29/25 15:00 Temperature 98.3 F Pulse Rate [Pulse Oximeter] 51 L Pulse Rate [Radial ] 80 Respiratory Rate 16 16 Blood Pressure [Le ft Arm] Blood Pressure [Ri ght Arm] 170/73 H Pulse Oximetry 90 90 Oxygen Delivery Me thod Room Air Nasal Cannula Oxygen Flow Rate 2 06/29/25 15:00 06/29/25 19:45 06/29/25 23:00 Temperature 97.5 F L 98.3 F Pulse Rate [Pulse Oximeter] 51 L 87 Pulse Rate [Radial ] Respiratory Rate 16 18 Blood Pressure [Le ft Arm] Blood Pressure [Ri ght Arm] 185/73 H 172/71 H Pulse Oximetry 97 93 96 Oxygen Delivery Me thod Nasal Cannula Nasal Cannula Nasal Cannula Oxygen Flow Rate 2 2 2 06/30/25 00:15 06/30/25 00:15 06/30/25 04:05 Temperature 97.6 F 97.9 F Pulse Rate [Pulse Oximeter] 87 55 L 64 Pulse Rate [Radial ] Respiratory Rate 18 16 18 Blood Pressure [Le ft Arm] Blood Pressure [Ri ght Arm] 156/64 H 197/81 H Pulse Oximetry 94 92 Oxygen Delivery Me thod Nasal Cannula Nasal Cannula Oxygen Flow Rate 2 2 06/30/25 07:00 06/30/25 07:00 Temperature 97.8 F Pulse Rate [Pulse Oximeter] 79 Pulse Rate [Radial ] Respiratory Rate 20 20 Blood Pressure [Le ft Arm] 169/70 H Blood Pressure [Ri ght Arm] Pulse Oximetry 98 98 Oxygen Delivery Me thod Room Air Room Air Oxygen Flow Rate Labs Labs: Laboratory Results - last 24 hr 06/30/25 06:10 WBC 11.82 H RBC 4.30 Hgb 12.7 L Hct 38.7 MCV 90 MCH 30 MCHC 33 Plt Count 179 Sodium 139 Potassium 3.5 L Chloride 101 Carbon Dioxide 32 Anion Gap 6 L BUN 22 Creatinine 0.8 Estimated Creat Clear 52.28 Estimated GFR 89 Glucose 120 H Calcium 9.3
--- NOTE | 2025-06-30 10:46 | P.ORPN_ITS ---
Subjective Subjective Time Seen by Provider: 10:46 Date Seen: 06/30/25 Principal diagnosis: Status post left hip IM rodding for intertrochanteric fracture Interval history: Neville states he had some pain this morning sitting down in bed where he felt some stitches Malcom. He is ambulating better today than yesterday and was able to ambulate to the restroom and back to his chair and from chair to bed. Ortho Exam Narrative Exam Narrative: Alert and oriented x3. Patient is in no acute distress. Converses without labored breathing. Hearing is grossly intact. Ambulates with a walker. Examination of the left hip shows the dressings are intact. No erythema or drainage or sign of infection. Edema is present in the left thigh. Calf is soft and nontender. CMS intact left lower extremity Const Vital Signs, click to edit/add: Vital Signs - 24 hr 06/29/25 11:00 06/29/25 14:34 06/29/25 15:00 Temperature 98.3 F Pulse Rate [Pulse Oximeter] 51 L Pulse Rate [Radial] 80 Respiratory Rate 16 16 Blood Pressure [Left Arm] Blood Pressure [Right Arm] 170/73 H Pulse Oximetry 90 90 Oxygen Delivery Method Room Air Nasal Cannula Oxygen Flow Rate 2 06/29/25 15:00 06/29/25 19:45 06/29/25 23:00 Temperature 97.5 F L 98.3 F Pulse Rate [Pulse Oximeter] 51 L 87 Pulse Rate [Radial] Respiratory Rate 16 18 Blood Pressure [Left Arm] Blood Pressure [Right Arm] 185/73 H 172/71 H Pulse Oximetry 97 93 96 Oxygen Delivery Method Nasal Cannula Nasal Cannula Nasal Cannula Oxygen Flow Rate 2 2 2 06/30/25 00:15 06/30/25 00:15 06/30/25 04:05 Temperature 97.6 F 97.9 F Pulse Rate [Pulse Oximeter] 87 55 L 64 Pulse Rate [Radial] Respiratory Rate 18 16 18 Blood Pressure [Left Arm] Blood Pressure [Right Arm] 156/64 H 197/81 H Pulse Oximetry 94 92 Oxygen Delivery Method Nasal Cannula Nasal Cannula Oxygen Flow Rate 2 2 06/30/25 07:00 06/30/25 07:00 06/30/25 07:00 Temperature 97.8 F Pulse Rate [Pulse Oximeter] 79 79 Pulse Rate [Radial] Respiratory Rate 20 20 18 Blood Pressure [Left Arm] 169/70 H Blood Pressure [Right Arm] Pulse Oximetry 98 98 Oxygen Delivery Method Room Air Room Air Oxygen Flow Rate Assessment and Plan Assessment and plan (1) History of open reduction and internal fixation (ORIF) procedure: Problem details: Left hip fracture ORIF (06/28/2025, Dr. Morillo) Status: Acute Assessment and Plan: Plan for discharge [facility] when he meets discharge criteria. Healthcare Economics Consultant continue to work with him along with PT. He doing will be staying another day. DVT prophylaxis upon discharge includes Xarelto 10mg daily for a total of 35 days, Remove dressing 1 week. Observe wound and phone Orthopedics with any questions or concerns Use Ice on operative hip unrestricted. Return to clinic in 1-2 weeks as scheduled for a wound check Return to clinic in 6 weeks with surgeon Minimize narcotic use. Wean off and discontinue soon as possible. Weightbear as tolerated left lower extremity. Attend PT
[2025-06-30] MEDS: POTASSIUM BICARB 25 MEQ EFFERVESCENT TAB PO ×2 (12:21→13:26)
--- NOTE | 2025-06-30 14:46 | PC.SOCIAL ---
Addendum entered by EMMY Abbott 06/30/25 16:44: Discharge planning: cleaner touch up worker spoke to pt's about transport to [facility] when pt is ready for discharge via phone this afternoon. Pt and his would like non-emergent EMS transport and are fine with paying the cost. cleaner touch up worker estimated the cost for non-emergent EMS transport to be $197.00(92+[id number]= 197). Pt and his are fine with paying this amount if pt's insurance does not cover the transport cost. cleaner touch up worker will complete the non-emergent EMS wheelchair form and state that pt's signed the form verbally, which she was completely fine with. Social work to follow-up as needed. Addendum entered by EMMY Abbott 06/30/25 15:06: Discharge planning: Pre-admission screening completed in preparation for the pt discharging to [facility] tomorrow. [id number]. Social work to follow-up as needed. Original Note: Discharge planning: Pt is not medically ready for discharge today per the provider on duty and the pt's prior authorization with insurance for [facility] is still pending as of 2:47pm today. Social work to follow-up as needed.
[2025-06-30] MEDS: LIDOCAINE 5% PATCH 1 PATCH TRANSDERMA (16:25)
[2025-06-30] MEDS: ATORVASTATIN CALCIUM 10 MG TABLET PO (18:20)
--- NOTE | 2025-06-30 18:53 | PC.NURSE ---
End of shift Note 277? ? Patient has been very agreeable and cooperative throughout the shift. Patient was admitted after a left hip replacement. Patient worked with PT/OT this morning. He moves with assist of one. Pain control has been constant throughout the day. Appetite has been poor due to worries about constipation. Patient has a BM this evening.? VSS. Afebrile. Lidocaine patch place near surgical site. Ice pack in place. Patient has a left glass eye in place. ?
[2025-07-01 03:05] VITALS: BP 174/85; PULSE 63; RESP 16; TEMP 36.6; O2SAT 91
--- NOTE | 2025-07-01 05:26 | PC.NURSE ---
End of Shift: Pt pleasant, alert and oriented. VSS. 1-2a with walker and gait belt. Pt reminded to breathe while walking instead of holding breath. O2 sats remained above 90%. Home cpap in use. Pt stated pain throughout shift, prns provided. Pt in bed, appears to be resting, call light within reach.?
[2025-07-01] MEDS: ACETAMINOPHEN 650 MG TABLET ER 1300 MG PO (05:55)
[2025-07-01 06:15] LABS: Hematocrit* 39.7 % (37.0-53.0); Hemoglobin* 13.1 gm/dL (13.5-17.5); Mean Corpuscular HGB Conc 33 gm/dL (32-36); Mean Corpuscular Hemoglobin 30 pg (26-34); Mean Corpuscular Volume 89 fL (80-100); Red Blood Count* 4.44 m/uL (4.30-5.90); White Blood Count* 8.65 K/uL (4.50-11.00)
[2025-07-01 06:25] LABS: Slide Review Reflex No
[2025-07-01 06:27] LABS: Chloride* 99 mmol/L (96-114)
[2025-07-01 06:28] LABS: Potassium* 3.4 mmol/L (3.6-5.1); Sodium* 138 mmol/L (135-149)
[2025-07-01 06:31] LABS: Anion Gap 5 mEq/L (7-15); Blood Urea Nitrogen* 19 mg/dL (7-30); Calcium* 9.1 mg/dL (8.4-10.6); Carbon Dioxide* 34 mmol/L (20-32); Creatinine* 0.7 mg/dL (0.5-1.5); Est. Creatinine Clearance* 52.28; Estimated Glomerular Filt Rate 93 ml/min; Glucose* 127 mg/dL (60-115)
[2025-07-01 07:00] VITALS: BP 188/69; PULSE 91; RESP 18; TEMP 36.6; O2SAT 92; O2SAT 94
[2025-07-01] MEDS: RIVAROXABAN 10 MG TABLET PO (07:56)
[2025-07-01] MEDS: AMLODIPINE 5 MG TABLET PO (07:56)
[2025-07-01] MEDS: LOSARTAN POTASSIUM 50 MG TABLET 100 MG PO (07:56)
[2025-07-01] MEDS: LORATADINE 10 MG TABLET PO (07:57)
[2025-07-01] MEDS: OMEPRAZOLE 20 MG CAPSULE DR PO (07:57)
[2025-07-01] MEDS: SENNOSIDES 1 TAB TABLET 2 TAB PO (07:57)
[2025-07-01] MEDS: CELECOXIB 200 MG CAPSULE PO (07:57)
[2025-07-01] MEDS: METOPROLOL SUCCINATE (XL) 25 MG TAB PO (07:57)
[2025-07-01] MEDS: POTASSIUM CHLORIDE 10 MEQ CAPSULE ER 20 MEQ PO ×2 (07:57→09:29)
[2025-07-01] MEDS: SODIUM CHLORIDE 0.9 % (FLUSH) 10 ML SYRINGE 5 ML IVF (07:59)
--- NOTE | 2025-07-01 08:41 | PM.ORPN ---
Subjective Subjective Time Seen by Provider: 07:45 Date Seen: 07/01/25 Principal diagnosis: Status post left hip IM rodding for intertrochanteric fracture Interval history: Neville will be likely discharging to the [facility] also per socially responsible investment adviser note. He is more comfortable today than he was initially postoperatively. He states he has been ambulating better. Ortho Exam Narrative Exam Narrative: Alert and oriented x3. Patient is in no acute distress. Converses without labored breathing. Hearing is grossly intact. Ambulates with a walker. Examination of the left hip shows soft tissue edema about the thigh. Dressings are in place and intact. No erythema or warmth or sign of infection. CMS intact left lower extremity. Calves are soft and nontender. Const Vital Signs, click to edit/add: Vital Signs - 24 hr 06/30/25 11:00 06/30/25 14:52 06/30/25 14:56 Temperature 98.0 F Pulse Rate [Pulse Oximeter] 94 87 Respiratory Rate 18 Blood Pressure [Left Arm] 175/73 H 165/84 H Pulse Oximetry 89 93 93 Oxygen Delivery Method Room Air Room Air Room Air 06/30/25 15:00 06/30/25 20:23 06/30/25 22:51 Temperature 98.7 F 98.2 F Pulse Rate [Pulse Oximeter] 87 64 66 Respiratory Rate 18 16 18 Blood Pressure [Left Arm] 178/84 H 177/78 H Pulse Oximetry 92 93 Oxygen Delivery Method CPAP Room Air 06/30/25 23:00 06/30/25 23:00 07/01/25 03:05 Temperature 97.9 F Pulse Rate [Pulse Oximeter] 66 63 Respiratory Rate 18 16 Blood Pressure [Left Arm] 174/85 H Pulse Oximetry 92 91 Oxygen Delivery Method CPAP Room Air Assessment and Plan Assessment and plan (1) History of open reduction and internal fixation (ORIF) procedure: Problem details: Left hip fracture ORIF (06/28/2025, Dr. Morillo) Status: Acute Assessment and Plan: Plan for discharge is today, and when they meets discharge criteria. DVT prophylaxis upon discharge includes Xarelto 10mg daily for a total of total of 35 days, Remove dressing 1 week. Observe wound and phone Orthopedics with any questions or concerns Use Ice on operative hip unrestricted. Return to clinic in 1-2 weeks as scheduled for a wound check Return to clinic in 6 weeks with surgeon Minimize narcotic use. Wean off and discontinue soon as possible. Weightbear as tolerated left lower extremity. Attend PT
[2025-07-01 11:00] VITALS: BP 149/64; PULSE 102; RESP 20; TEMP 36.6; O2SAT 96
--- NOTE | 2025-07-01 12:24 | PC.NURSE ---
Discharge Note 277 Patient was very pleasant and cooperative throughout his stay. Patient was admitted after left hip surgery. Patient reported no pain at discharge time. Ambulates slowly but steadily with SBA. VSS. Afebrile. A&Ox4. EMS transport to rehab at [facility] in [place]. Patient required good pain management. Regular voiding and BM. Appetite has been good. Patient was discharged to EMS transport at 11:50 am.
--- NOTE | 2025-07-01 12:39 | P.DS_ITS ---
DS: Providers Provider Date Seen: 07/01/25 Date of admission: 06/27/25 22:14 Primary care physician: Osman Byrne MD Admitting Clinician: Jannie Chacko MD Consults: 06/27/25 22:14 Consult to Occupational Therapy [CONS] Routine Comment: Reason(s) for OT Consult:: Evaluate and Treat Any Restrictions?:: No Restrictions Consult to Physical Therapy [CONS] Routine Comment: Reason(s) for PT Consult:: Evaluate and Treat Any Restrictions?:: No Restrictions Consult to Bag Bleacher [CONS] Routine Comment: Reason for Consult:: Social Service Consult 06/28/25 13:45 Consult to Occupational Therapy [CONS] Routine Comment: Reason(s) for OT Consult:: Evaluate and Treat Any Restrictions?:: See Comment Comment: evaluate and treat Consult to Physical Therapy [CONS] Routine Comment: Reason(s) for PT Consult:: Evaluate and Treat Any Restrictions?:: See Comment Comment: Weightbear as tolerates left lower extremity Consult to Bag Bleacher [CONS] Routine Comment: Reason for Consult:: Discharge Planning Needs Attending Physician on discharge: Jannie Chacko MD Date of Discharge: 07/01/25 DS: Diagnosis Discharge Diagnosis (1) History of open reduction and internal fixation (ORIF) procedure: Status: Acute Problem details: Left hip fracture ORIF (06/28/2025, Dr. Morillo) (2) Hip fracture: Status: Acute Problem details: -ORIF 06/28/25 -Xarelto for VTE ppx -pain control with scheduled Tylenol, Celebrex, Lidoderm patch, prn dilaudid (PO) -will likely need TCU, short term (3) Diabetes type 2, controlled: Status: Acute Problem details: -most recent A1c 7.3 -hold glipizide for now -glucose checks and sliding scale ACHS -Metformin intolerance (4) Hypertension: Status: Acute Problem details: -restarting home meds (5) Hyperlipidemia: Status: Acute Problem details: -continue statin (6) PANCHO on CPAP: Status: Acute Problem details: - will bring CPAP tomorrow -O2 p.r.n. especially while receiving narcotics, oximetry (7) Chronic obstructive pulmonary disease: Status: Acute Problem details: -encourage pulmonary hygiene postoperatively DS: Summary Hospital Course Hospital Course: BRIEF HOSPITAL COURSE: Patient was admitted for 5 days. Synopsis of acute inpatient issues are outlined above. Chronic medical conditions with notable findings outlined above. He fell at work, He sustained an intertrochanteric fracture of the left proximal femur. This was surgically corrected on 06/28/[address] Morillo and his team. There were no perioperative complications. He had some difficulty with pain management we were able to work through those and he was discharged in stable and improving status on 07/01/2025 to a transitional care unit in [facility]. DISCHARGE MEDICATIONS: See Reconciled list Specific instructions to the patient and follow-up are outlined below. REVIEW OF SYSTEMS No new chest pain or dyspnea Pain controlled No voiding difficulties Tolerating diet challenge PHYSICAL EXAM: CONSTITUTIONAL: Conversive, good historian. A/O. Knows setting and context. GENERAL: Well-developed and above ideal body weight, in no respiratory distress. VITAL SIGNS: see record. HEENT: Sclerae are anicteric. No petechiae. CARDIAC: rhythm is regular. There is no S3 or rub. No harsh murmurs. Extremities show trace edema with symmetrical pulses. PULM: good air entry with no wheeze. MSK: left surgical dressing intact and dry NEURO: Speech is fluent. A brief neurologic exam is negative. SKIN: No rashes, petechiae, concerning changes PSYCHIATRIC: Euthymic. DISPOSITION: TCU Time spent on discharge 37 minutes. Status at Discharge Functional status at discharge: uses cane/walker Overall status at discharge: patient is progressing back to baseline Time Spent with Patient Time attestation: Total time spent providing and/or coordinating discharge services: Time spent: Greater than 30 minutes Exam Const: Vital Signs, click to edit/add: Vital Signs - 24 hr 06/30/25 14:52 06/30/25 14:56 06/30/25 15:00 Temperature 98.0 F Pulse Rate [Pulse Oximeter] 87 87 Respiratory Rate 18 18 Blood Pressure [Le ft Arm] 165/84 H Pulse Oximetry 93 93 Oxygen Delivery Me thod Room Air Room Air 06/30/25 20:23 06/30/25 22:51 06/30/25 23:00 Temperature 98.7 F 98.2 F Pulse Rate [Pulse Oximeter] 64 66 Respiratory Rate 16 18 Blood Pressure [Le ft Arm] 178/84 H 177/78 H Pulse Oximetry 92 93 92 Oxygen Delivery Me thod CPAP Room Air CPAP 06/30/25 23:00 07/01/25 03:05 07/01/25 07:00 Temperature 97.9 F Pulse Rate [Pulse Oximeter] 66 63 Respiratory Rate 18 16 Blood Pressure [Le ft Arm] 174/85 H Pulse Oximetry 91 94 Oxygen Delivery Me thod Room Air Room Air 07/01/25 07:00 07/01/25 11:00 Temperature 98 F 98 F Pulse Rate [Pulse Oximeter] 91 102 H Respiratory Rate 18 20 Blood Pressure [Le ft Arm] 188/69 H 149/64 H Pulse Oximetry 92 96 Oxygen Delivery Me thod Room Air Room Air DS: Data Data Completed and Pending Completed studies during hospitalization: Procedures Introduction of Other Gas into Respiratory Tract, Via Natural or Artificial Ope storm (02/04/23) Labs on day of discharge: Labs from last 24 hours 07/01/25 06:05 WBC 8.65 RBC 4.44 Hgb 13.1 L Hct 39.7 MCV 89 MCH 30 MCHC 33 Plt Count 193 Sodium 138 Potassium 3.4 L Chloride 99 Carbon Dioxide 34 H Anion Gap 5 L BUN 19 Creatinine 0.7 Estimated Creat Clear 52.28 Estimated GFR 93 Glucose 127 H Calcium 9.1 Discharge Plan Discharge Disposition: [facility] Date of Admission: 06/27/25 22:14 Attending Provider on Discharge: Jannie Chacko Primary Care Provider: Osman Byrne Condition: Unchanged Discharge Medications: New sennosides [Senna Lax] 8.6 mg Tablet 17.2 mg PO BID PRN (Reason: constipation) Qty: 100 0RF Xarelto 10 mg tablet 10 mg PO DAILY Qty: 33 0RF Rx Instructions: for 33 days celecoxib 200 mg Capsule 200 mg PO BID Qty: 60 0RF acetaminophen 650 mg Tablet Extended Release 1,300 mg PO Q12H Qty: 120 0RF potassium chloride 20 mEq tablet extended release 40 meq PO DAILY Qty: 60 0RF hydromorphone [Dilaudid] 4 mg tablet 2 - 4 mg PO Q4-6H PRN (Reason: pain) Qty: 60 0RF Rx Instructions: dose is 2 mg for pain 3-7 and 4 mg for 8-10 Continued atorvastatin 10 mg tablet 10 mg PO QPM Qty: 90 3RF fluticasone propionate 50 mcg/actuation spray,suspension 1 spray intranasal DAILY Qty: 16 11RF losartan 100 mg tablet 100 mg PO DAILY Qty: 90 3RF metoprolol succinate 25 mg tablet extended release 24 hr 25 mg PO DAILY Qty: 90 3RF omeprazole 20 mg capsule,delayed release(DR/EC) 20 mg PO BID Qty: 180 3RF triamterene-hydrochlorothiazid 37.5-25 mg capsule 1 cap PO DAILY Qty: 90 3RF glipizide 5 mg tablet extended release 24hr 5 mg PO QDAY Qty: 90 3RF loratadine 10 mg tablet 10 mg PO DAILY omega-3 fatty acids 1,000 mg capsule 1,000 mg PO DAILY multivitamin [Multiple Vitamins] Tablet 1 tab PO QAM amlodipine 5 mg tablet 5 mg PO DAILY Held aspirin 81 mg tablet,delayed release (DR/EC) 81 mg PO DAILY Hold Instructions: Resume on 08/13/25. Discontinued potassium chloride 10 mEq capsule, extended release 10 meq PO DAILY Qty: 90 3RF Discharge Orders: Discharge Order (Routine); Ordered 07/01/25 Ordered By: Jannie Chacko Additional Instructions: I increased the potassium dose as he was running low after injury/surgery. His HTN meds are also likely lowering his potassium. When he see's Dr. Byrne - he should have his BMP checked. Staff, please schedule Postoperative appointments Wound check appointment with orthopedic physician hospital clinic assistant at 2 weeks postsurgery Appointment with Dr. Morillo in 6 weeks, [facility] [phone] Activity Level: Weight Bearing as Tolerated Activity Detail: Weight bear as tolerated left lower extremity. Keep dressings on. This will be removed in clinic at your post operative appointment. Dressing is waterproof. May shower. Notify orthopedics if your dressing becomes compromised and gets saturated in shower. May change dressing if needed. Attend physical therapy. Ice and elevate operative extremity without restriction. Swelling and bruising will worsen within the first week. When swelling occurs, elevate the extremity above heart level several times a day and gently massage/pull soft tissue swelling toward hip. This allows gravity to as sist in eliminating the swelling/edema. Wear compression stockings/dottie bandages as needed for swelling. Ambulate frequently throughout the day. If you drive, Do not drive while taking narcotic pain medication. Do not drink alcohol while taking narcotic pain medication. May drive when safe to do so and have full function of the extremities, this may take 6 weeks or more. Notify Orthopedics with any questions or concerns. (phone: [phone]) Discharge Diet: Diabetic Follow Up Appointments: J Carlos Morillo MD [Staff Physician, Orthopedics] - 07/18/25 11:00 am Referral Note: [facility] for 2 week post-op appointment Osman Byrne MD [Primary Care Provider, Family Practice] - 07/26/25 2:00 pm Referral Note: [facility] and [facility] for follow up with PCP Forms[facility] Instructions Admit to: SNF Discharge Potential: Good Length of Stay: <30 days Can use facility standing orders?: Yes Code Status: Full Code Rehab Potential: Good Therapy: Physical Therapy and Occupational Therapy Therapy Orders: Evaluate and Treat Oxygen: No Urinary Catheter: No Orders are good >30 days: Yes
--- NOTE | 2025-07-01 17:35 | PC.SOCIAL ---
Discharge planning: Pt's prior authorization with insurance came back this morning and pt discharged to [facility] around noon today via non-emergent EMS. The pre-admission screening was secure emailed to [employer] staff on behalf of [facility] yesterday, 06/30/25. Pt's discharge orders were secure emailed to [employer] today on behalf of [facility]. plier worker provided the pt with The Important Message from Medicare form at discharge and explained the hospital discharge appeal process. Pt was in agreement with his discharge plan and had no plans to appeal his discharge. Social work to follow-up as needed.
== END 2025-07-01 11:50 | DRG 481 ==
LOC: ED 20:59 → MEDSURG 21:43
PROVIDERS: Orthopaedic Surgery; Admitting Provider Physician Assistant; Emergency Provider Emergency Medicine Emergency Medical Services; PCP Family Medicine; Visit Provider Family Medicine
PROC: 0QS706Z Reposition Left Upper Femur with Intramedullary Internal Fixation Device, Open Approach (ICD-10-PCS; CPT 27245; principal; 2025-06-28 10:00)
DX: S72.142A Displaced intertrochanteric fracture of left femur, initial encounter for closed fracture (principal); Z68.41 Body mass index [BMI] 40.0-44.9, adult; G89.18 Other acute postprocedural pain; E11.9 Type 2 diabetes mellitus without complications; Z79.84 Long term (current) use of oral hypoglycemic drugs; G47.33 Obstructive sleep apnea (adult) (pediatric); J44.9 Chronic obstructive pulmonary disease, unspecified; E66.01 Morbid (severe) obesity due to excess calories; W01.0XXA Fall on same level from slipping, tripping and stumbling without subsequent striking against object, initial encounter; I10 Essential (primary) hypertension; K21.9 Gastro-esophageal reflux disease without esophagitis; E78.5 Hyperlipidemia, unspecified; Z79.82 Long term (current) use of aspirin
CPT/HCPCS: 01230; 36415; 51701; 64450; 71045; 73502; 73551; 76000; 76942; 80048; 82565; 82962; 84132; 84295; 84520; 85025; 85027; 85610; 93005; 97110; 97116; 97161; 97165; 97530; 97535; 99100; 99284; 99285; A9270; C1713; J0690; J1100; J1171; J1885; J2250; J2405; J2704; J2795; J3010; J3480; J3490; J7030; J7120

== ENCOUNTER 2025-07-01 11:40 | Outpatient (CLI) | payer MEDICARE, SELFPAY | END 2025-07-01 11:41 | disposition home or self-care (01) | LOC: AMB 07-04 09:56 | PROVIDERS: PCP Family Medicine; Visit Provider Internal Medicine | DX: R53.1 Weakness (principal); Z98.890 Other specified postprocedural states | CPT/HCPCS: A0425; A0428 ==

== ENCOUNTER 2025-08-17 07:23 | Outpatient (CLI) | payer MEDICARE, SELFPAY | END 2025-08-17 07:24 | disposition home or self-care (01) | LOC: INJ CL 07:23 | PROVIDERS: PCP Family Medicine; Visit Provider Nurse Anesthetist, Certified Registered | DX: M17.12 Unilateral primary osteoarthritis, left knee (principal); M25.562 Pain in left knee | CPT/HCPCS: 64454 ==

== ENCOUNTER 2025-08-31 07:46 | Outpatient (CLI) | payer MEDICARE, SELFPAY | END 2025-08-31 07:47 | disposition home or self-care (01) | LOC: INJ CL 07:46 | PROVIDERS: PCP Family Medicine; Visit Provider Nurse Anesthetist, Certified Registered | DX: M17.12 Unilateral primary osteoarthritis, left knee (principal) | CPT/HCPCS: 64624; J0665; J0702; J1885 ==